=== PATIENT | male | born 1935 | race Caucasian/White ===

== ENCOUNTER 2018-06-06 16:26 | Inpatient (IN) | payer MEDICAID, MEDICARE ==
--- NOTE | 2018-06-06 16:35 | ED ---
Complex/Multi-Sys Presentation - HPI Summary HPI Summary: This pt is an 83 y/o male presenting to [facility] via EMS for diarrhea, abd pain and SOB. Pt reports he had a lot of diarrhea yesterday. Pt denies any nausea and vomiting. Per EMS pt is very dehydrated. EMS reports blood pressure of 96 systolic. Per nurse's note, pt has sick contacts at home with stomach bug. Pt presents to the ED with low grade fever of 100.3F. - History Of Current Complaint Time Seen by Provider: 06/06/18 16:29 Hx Obtained From: Patient, EMS Onset/Duration: Lasting Days, Still Present Timing: Days Severity Currently: Moderate Location: Pain At: - abd Aggravating Factor(s): nothing Alleviating Factor(s): nothing Associated Signs And Symptoms: Positive: SOB, Diarrhea, Abdominal Pain, Fever - low grade. Negative: Nausea, Vomiting - Allergies/Home Medications Allergies/Adverse Reactions: Allergies Allergy/AdvReac Type Severity Reaction Status Date / Time aspirin Allergy Swelling Verified 06/06/18 18:45 Of Face,Lips,& Throat ibuprofen Allergy Unknown Verified 06/06/18 18:45 Reaction Details Home Medications: Home Medications Dicyclomine CAP* [Bentyl CAP*] 10 mg PO QID PRN 06/06/18 [History Confirmed ] Multivitamins/Minerals TAB* [Theragran/minerals TAB*] 1 tab PO DAILY 06/06/18 [ History Confirmed 06/06/18] carBAMazepine TAB(*) [TEGretol TAB(*)] 200 mg PO TID 06/06/18 [History Confirmed 06/06/18] PMH/Surg Hx/FS Hx/Imm Hx Endocrine/Hematology History: Denies: Hx Diabetes Cardiovascular History: Denies: Hx Hypertension Respiratory History: Reports: Hx Asthma, Other Respiratory Problems/Disorders - HX OF SEIZURES History: Denies: Hx Dialysis, Hx Renal Disease Sensory History: Reports: Hx Hearing Problem - WEARS HEARING AIDS Infectious Disease History: Denies: Traveled Outside the [place] in Last 30 Days - Family History Known Family History: Positive: Other - Patient does not recall his FHx - Social History Alcohol Use: None Substance Use Type: Reports: None Smoking Status (MU): Never Smoked Tobacco Review of Systems Constitutional: Other - POS: dehydration Negative: Fever Positive: Shortness Of Breath Positive: Abdominal Pain, Diarrhea All Other Systems Reviewed And Are Negative: Yes Physical Exam - Summary Physical Exam Summary: Appearance: Elderly man who appears ill and is tachypneic in mild distress Skin: Warm, dry, no obvious rash Eyes: sclera anicteric, no conjunctival pallor ENT: mucous membranes moist, pharynx appears normal Neck: Supple, nontender Respiratory: Clear to auscultation, no signs of respiratory distress Cardiovascular: Normal S1, S2. No murmurs. Normal distal pulses in tibial and radial bilaterally. Abdomen: Soft, generalized tenderness with guarding and rebound, normal active bowel sounds present Musculoskeletal: Peripheral cyanosis in fingers. Neurological: A&Ox3, awake and alert, mentation is normal, speech is fluent and appropriate Psychiatric: affect is normal, does not appear anxious or depressed Triage Information Reviewed: Yes Vital Signs On Initial Exam: Initial Vitals Temp Pulse Resp BP Pulse Ox 100.3 F 113 32 139/95 89 06/06/18 16:31 06/06/18 16:31 06/06/18 16:31 06/06/18 16:31 06/06/18 16:31 Vital Signs Reviewed: Yes Diagnostics - Laboratory Result Diagrams: 06/07/18 05:07 06/07/18 05:07 Lab Statement: Any lab studies that have been ordered have been reviewed, and results considered in the medical decision making process. - Radiology Chest XR Radiology Interpretation Completed By: Radiologist Summary of Radiographic Findings: IMPRESION: Low lung volumes with subsegmental atelectasis. Dr. Bonilla has reviewed this report. - CT Abdomen/Pelvis CT CT Interpretation Completed By: Radiologist Summary of CT Findings: IMPRESSION: 1. Mild partial small bowel obstruction with transition in the right low quadrant. No perforation or ischemia. 2. Interval T12 and multiple rib fractures. Dr. Bonilla has reviewed this report. - EKG 16:32 Cardiac Rate: Tachycardia - at 109 bpm EKG Rhythm: Sinus Tachycardia Summary of EKG Findings: Right bundle branch block. Inferior infarct, age indeterminate. Re-Evaluation - Re-Evaluation First Eval Re-Evaluation Time: 20:41 Change: Unchanged Comment: Pt is still tachypneic in mild distress. Pt is now wheezing in lungs diffusely. Complex Multi-Symp Course/Dx Assessment/Plan: Pt is an 83 y/o male who presents via EMS for diarrhea, abd pain and SOB. Pt reports he had a lot of diarrhea yesterday. Pt denies any nausea and vomiting. Per EMS pt is very dehydrated. Labs are remarkable for BUN of 40, creatinine of 2.27, lactic acid of 2.3, alkaline phosphatase of 160, CRP of 86. VBG pH of 7.22, HCO3 of 16.8, O2 saturation of 22.8, base excess - 7.8. Chest XR shows low lung volumes with subsegmental atelectasis. Abdomen/ Pelvis CT reveals 1. Mild partial small bowel obstruction with transition in the right low quadrant. No perforation or ischemia. 2. Interval T12 and multiple rib fractures. Discussed case with Dr. Vigil, hospitalist, who accepted the pt for admission. - Diagnoses Provider Diagnoses: Partial small bowel obstruction, COPD exacerbation, Hypernatremia, Acute renal failure - Physician Notifications Discussed Care Of Patient With: Jaleesa Vigil - hospitalist Time Discussed With Above Provider: 20:42 Instructed by Provider To: Admit As Inpatient - Critical Care Time Critical Care Time: 30-74 min Discharge - Sign-Out/Discharge Documenting (check all that apply): Patient Departure - Admit to [facility] [place] Patient Received Moderate/Deep Sedation with Procedure: No - Discharge Plan Condition: Stable Disposition: ADMITTED TO [facility] - Billing Disposition and Condition Condition: STABLE Disposition: Admitted to [facility] - Attestation Statements Document Initiated by Braden: Yes Documenting Scribe: Roberta Mccray Provider For Whom Braden is Documenting (Include Credential): Les Bonilla MD Scribcristino Attestation: Roberta Solomon, scribed for Les Bonilla MD on 06/07/18 at 1258. Scribe Documentation Reviewed: Yes Provider Attestation: The documentation as recorded by the Roberta corona accurately reflects the service I personally performed and the decisions made by me, Les Bonilla MD Status of Scribe Document: Viewed
[2018-06-06] MEDS: NS 0.9% 1000 ML** 2,000 ML IV ONE ×2 (17:01→18:33)
[2018-06-06 17:20] LABS: ABS Basophils 0 10^3/ul (0-0.2); ABS Eosinophils 0 10^3/ul (0-0.6); ABS Lymphocytes 0.4 10^3/ul (1.0-4.8); ABS Monocytes 0.6 10^3/ul (0-0.8); ABS Neutrophils 8.4 10^3/ul (1.5-7.7); ABS Nucleated RBC 0 10^3/ul; Eosinophil % 0 %; Hematocrit 53 % (42-52); Hemoglobin 17.2 g/dl (14.0-18.0); Lymphocyte % 4.2 %; Mean Corpuscular HGB Conc 32 g/dl (31-36); Mean Corpuscular Hemoglobin 31 pg (27-31); Mean Corpuscular Volume 96 fL (80-94); Mean Platelet Volume 7.1 fL (7.4-10.4); Nucleated Red Blood Cells % 0.1; Platelet Count 272 10^3/ul (150-450); Red Blood Count 5.55 10^6/ul (4.00-5.40); Red Cell Distribution Width 15 % (10.5-15); White Blood Count 9.4 10^3/ul (3.5-10.8)
[2018-06-06 17:38] LABS: ALT 20 U/L (7-52); AST 24 U/L (13-39); Albumin 4.2 g/dL (3.2-5.2); Albumin/Globulin Ratio 1.1 (1-3); Alkaline Phosphatase 160 U/L (34-104); Anion Gap 12 mmol/L (2-11); BUN/Creatinine Ratio 17.6 (8-20); Blood Urea Nitrogen 40 mg/dL (6-24); C Reactive Protein 86.14 mg/L (<8.01); CO2 Carbon Dioxide 17 mmol/L (22-32); Calcium 9.5 mg/dL (8.6-10.3); Chloride 120 mmol/L (101-111); EGFR African American 33.4 (>60); EGFR Non-African American 27.6 (>60); Globulin 3.8 g/dL (2-4); Glucose 118 mg/dL (70-100); Potassium 5.4 mmol/L (3.5-5.0); Sodium 149 mmol/L (135-145)
[2018-06-06 17:39] LABS: Troponin I 0.01 ng/mL (<0.04)
[2018-06-06] MEDS ORDERED: methylPREDNISolone 125 MG* 2 ML VIAL IV ONE (20:40)
[2018-06-06] MEDS ORDERED: Albuterol 0.5% CONC NEB.SOL* 5 MG/ML 20 ml BOT INH ONE (20:41)
[2018-06-06] MEDS ORDERED: ED Piperacillin/Tazobac 3.375 3.375 GM/100 ML PREMIX.SET IVPB ONE (20:42)
[2018-06-06] MEDS ORDERED: ZOSYN 3.375 GM x ONE DOSE over 30 miuntes IVPB ×2 (21:00)
[2018-06-06] MEDS ORDERED: Ondansetron INJ* 2 MG/ML VIAL IV PRN (21:15)
[2018-06-06] MEDS: Heparin VIAL(*) 5000 UNITS/ML VIAL (FIVE THOUSAND) SUBCUT SCH (22:58)
[2018-06-06] MEDS: NS 0.9% 1000 ML** 1,000 ML IV SCH (22:59)
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
[2018-06-07] MEDS: Heparin VIAL(*) 5000 UNITS/ML VIAL (FIVE THOUSAND) SUBCUT SCH ×3 (05:34→21:52)
[2018-06-07 06:17] LABS: Hematocrit 38 % (42-52); Hemoglobin 12.6 g/dl (14.0-18.0); Mean Corpuscular HGB Conc 33 g/dl (31-36); Mean Corpuscular Hemoglobin 31 pg (27-31); Mean Corpuscular Volume 93 fL (80-94); Mean Platelet Volume 7.2 fL (7.4-10.4); Platelet Count 192 10^3/ul (150-450); Red Blood Count 4.13 10^6/ul (4.00-5.40); Red Cell Distribution Width 14 % (10.5-15); White Blood Count 6.9 10^3/ul (3.5-10.8)
[2018-06-07 06:27] LABS: Calcium 7.7 mg/dL (8.6-10.3); EGFR African American 82.3 (>60); Potassium 3.6 mmol/L (3.5-5.0)
[2018-06-07 06:34] LABS: Carbamazepine 5.8 mcg/mL (4.0-12.0)
[2018-06-07] MEDS: Atenolol TAB* 50 MG PO SCH (09:08)
[2018-06-07] MEDS: Multivitamins/Minerals TAB PO SCH (09:08)
[2018-06-07] MEDS: carBAMazepine TAB(*) 200 MG PO SCH ×3 (09:08→21:52)
[2018-06-07] MEDS: Tamsulosin CAP* 0.4 MG PO SCH (09:09)
[2018-06-07] MEDS: NS 0.9% 1000 ML** 1,000 ML IV SCH (09:09)
[2018-06-07] MEDS ORDERED: Albuterol 2.5 MG/3 ML NEB.SOL* (0.083%) INH PRN (10:31)
[2018-06-07 10:49] LABS: C Reactive Protein 82.74 mg/L (<8.01)
--- NOTE | 2018-06-07 12:30 | PN ---
Subjective Date of Service: 06/07/18 Interval History: Mr. Muniz, "Channing," has had 4 episodes of diarrhea this morning, described as thin, liquid, yellow stool. He has no complaints. He is hungry. He has no abdominal pain, has had no emesis, no shortness of breath or cough. He has been noted to be tachypneic this morning with no complaints. There is a recording of 76% O2 overnight and he is now on 4L O2. 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 Objective Active Medications: Albuterol (Ventolin 2.5 Mg/3 Ml Neb.Ann*) 2.5 mg INH Q4H PRN PRN Reason: SOB/WHEEZING Atenolol (Tenormin Tab*) 50 mg PO DAILY [facility] Last Admin: 06/07/18 09:08 Dose: 50 mg Carbamazepine (Tegretol Tab(*)) 200 mg PO TID [facility] Last Admin: 06/07/18 09:08 Dose: 200 mg Dicyclomine HCl (Bentyl Cap*) 10 mg PO QID PRN PRN Reason: PAIN - ABDOMINAL Heparin Sodium (Porcine) (Heparin Vial(*)) 5,000 units SUBCUT Q8HR [facility] Last Admin: 06/07/18 05:34 Dose: 5,000 units Sodium Chloride (Ns 0.9% 1000 Ml) 1,000 mls @ 125 mls/hr IV PER RATE [facility] Last Admin: 06/07/18 09:09 Dose: 125 mls/hr Multivitamins/Minerals (Theragran/Minerals Tab*) 1 tab PO DAILY [facility] Last Admin: 06/07/18 09:08 Dose: 1 tab Ondansetron HCl (Zofran Inj*) 4 mg IV Q6H PRN PRN Reason: NAUSEA Tamsulosin HCl (Flomax Cap*) 0.4 mg PO DAILY [facility] Last Admin: 06/07/18 09:09 Dose: 0.4 mg Vital Signs - 8 hr 06/07/18 06/07/18 06/07/18 08:22 09:36 11:23 Temperature 97.6 F 97.2 F Pulse Rate 66 64 Respiratory 34 24 16 Rate Blood Pressure 106/56 114/73 (mmHg) O2 Sat by Pulse 100 100 Oximetry Oxygen Devices in Use Now: Nasal Cannula Appearance: alert, tachypneic, no distress, oriented to person place and situation but repeats himself often Eyes: No Scleral Icterus Ears/Nose/Mouth/Throat: NL Teeth, Lips, Gums Neck: NL Appearance and Movements; NL JVP Respiratory: Symmetrical Chest Expansion and Respiratory Effort, Clear to Auscultation, - - able to speak in full sentences, no accessory respiratory muscles Cardiovascular: NL Sounds; No Murmurs; No JVD, RRR Abdominal: - - mildly distended, nontender, bowel sounds are hypoactive but present in all quadrants Lymphatic: No Cervical Adenopathy Extremities: No Edema Skin: No Rash or Ulcers Neurological: NL Muscle Strength and Tone Result Diagrams: 06/07/18 05:07 06/07/18 05:07 Microbiology and Other Data: Microbiology 06/07/18 11:00 Stool Gross Appearance - Final Stool C. difficile DNA Amplification - Final 027 Presumptive NEGATIVE Toxigenic C.diff NEGATIVE Assess/Plan/Problems-Billing Assessment: This is a 83 year old man with history of HTN, seizure disorder, BPH who presented to the ED yesterday with diarrhea and was found to have hypernatremia , ANIBAL, and a possible partial small bowel obstruction - Patient Problems (1) Diarrhea Current Visit: Yes Status: Acute Code(s): R19.7 - DIARRHEA, UNSPECIFIED SNOMED Code(s): 78255209 Comment: c. diff is negative, stool culture is pending suspect viral enteritis, continue supportive care, he is improving with ivf resuscitation and his lytes are normal this morning (2) Partial small bowel obstruction Current Visit: Yes Status: Acute Code(s): K56.600 - PARTIAL INTESTINAL OBSTRUCTION, UNSPECIFIED TO CAUSE SNOMED Code(s): 100073071 Comment: I agree that he is not behaving as an SBO, with no pain, no vomiting , and no risk factors for an SBO As such, I am advancing his diet; he is hungry, and will see how he tolerates this (3) HTN (hypertension) Current Visit: Yes Status: Acute Code(s): I10 - ESSENTIAL (PRIMARY) HYPERTENSION SNOMED Code(s): 05404739 Comment: normotensive on atenolol (4) ANIBAL (acute kidney injury) Current Visit: Yes Status: Acute Code(s): N17.9 - ACUTE KIDNEY FAILURE, UNSPECIFIED SNOMED Code(s): 46251606 Comment: resolved after ivf overnight, will continue (5) Acidosis Current Visit: Yes Status: Acute Code(s): E87.2 - ACIDOSIS SNOMED Code(s) : 83415697 Comment: non-anion gap metabolic acidosis likely related to diarrhea
--- NOTE | 2018-06-07 12:44 | PN ---
Hospitalist Progress Note Date of Service: 06/07/18 I talked with Samuel's niece, Liz, who lives next door to him. She thinks he is improving. Regarding his disposition, I recommended that he stay one more night to continue IV hydration, diet advancement, and ambulation. She is in agreement. She also reports that due to his IBS, he always moves his bowels about 4 times per day. She does not have any concerns about his mobility, he is independent at home and also has a nurse who lives with him but works for [employer] so is not always there. He gets meals on wheels.
[2018-06-07] MEDS: Dicyclomine CAP* 10 MG PO PRN (16:15)
[2018-06-08] MEDS: NS 0.9% 1000 ML** 1,000 ML IV SCH (00:25)
[2018-06-08] MEDS: Heparin VIAL(*) 5000 UNITS/ML VIAL (FIVE THOUSAND) SUBCUT SCH ×3 (05:58→20:50)
[2018-06-08 07:20] LABS: ABS Basophils 0 10^3/ul (0-0.2); ABS Eosinophils 0.1 10^3/ul (0-0.6); ABS Lymphocytes 1.1 10^3/ul (1.0-4.8); ABS Monocytes 0.5 10^3/ul (0-0.8); ABS Neutrophils 3.7 10^3/ul (1.5-7.7); ABS Nucleated RBC 0 10^3/ul; Eosinophil % 2.3 %; Hematocrit 37 % (42-52); Hemoglobin 12.4 g/dl (14.0-18.0); Lymphocyte % 21.1 %; Mean Corpuscular HGB Conc 34 g/dl (31-36); Mean Corpuscular Hemoglobin 31 pg (27-31); Mean Corpuscular Volume 92 fL (80-94); Mean Platelet Volume 7.1 fL (7.4-10.4); Nucleated Red Blood Cells % 0.1; Platelet Count 160 10^3/ul (150-450); Red Blood Count 4.02 10^6/ul (4.00-5.40); Red Cell Distribution Width 14 % (10.5-15); White Blood Count 5.4 10^3/ul (3.5-10.8)
[2018-06-08 07:36] LABS: BUN/Creatinine Ratio 25.4 (8-20); C Reactive Protein 29.04 mg/L (<8.01); Calcium 7.3 mg/dL (8.6-10.3); EGFR African American 136.7 (>60); Potassium 3.3 mmol/L (3.5-5.0)
[2018-06-08] MEDS: carBAMazepine TAB(*) 200 MG PO SCH ×3 (10:22→20:50)
[2018-06-08] MEDS: Tamsulosin CAP* 0.4 MG PO SCH (10:22)
[2018-06-08] MEDS: Multivitamins/Minerals TAB PO SCH (10:22)
[2018-06-08] MEDS: Atenolol TAB* 50 MG PO SCH (10:22)
--- NOTE | 2018-06-08 11:58 | PN ---
Subjective Date of Service: 06/08/18 Interval History: Pt seen and examined. Meds and labs reviewed. CC: N/A; Denies diarrhea, however, pt poor historian given previus hx of TBI ROS: Denied YUEN/dizziness, F/C, N/V, CP, SOB, increased cough, sputum production , abd pain, diarrhea, constipation, dysuria, myalgias, arthralgias, throat pain , and new skin lesions. The rest of the 14 point ROS are unremarkable. PHYSICAL EXAM: GEN APPEARANCE: Awake, not in acute distress, answers questions appropriately, not oriented x 3 HEENT: NC/AT, PERRLA, moist oral mucosa, (-) throat erythema NECK: Soft, supple, (-) cervical LAD, (-)JVD HEART: S1S2 WNL, RRR, No MRG CHEST: CTA, BL, GAE, No W/R/R ABD: Soft, ND/NT, NABS 4x Q EXT: No C/C/E SKIN: Warm to touch PSYCH: No active psychosis, hallucinations, depression, SI/HI Objective Active Medications: Albuterol (Ventolin 2.5 Mg/3 Ml Neb.Ann*) 2.5 mg INH Q4H PRN PRN Reason: SOB/WHEEZING Atenolol (Tenormin Tab*) 50 mg PO DAILY [facility] Last Admin: 06/08/18 10:22 Dose: 50 mg Carbamazepine (Tegretol Tab(*)) 200 mg PO TID [facility] Last Admin: 06/08/18 10:22 Dose: 200 mg Dicyclomine HCl (Bentyl Cap*) 10 mg PO QID PRN PRN Reason: PAIN - ABDOMINAL Last Admin: 06/07/18 16:15 Dose: 10 mg Heparin Sodium (Porcine) (Heparin Vial(*)) 5,000 units SUBCUT Q12H [facility] Last Admin: 06/08/18 10:22 Dose: 5,000 units Sodium Chloride (Ns 0.9% 1000 Ml) 1,000 mls @ 125 mls/hr IV PER RATE [facility] Last Admin: 06/08/18 00:25 Dose: 125 mls/hr Multivitamins/Minerals (Theragran/Minerals Tab*) 1 tab PO DAILY [facility] Last Admin: 06/08/18 10:22 Dose: 1 tab Ondansetron HCl (Zofran Inj*) 4 mg IV Q6H PRN PRN Reason: NAUSEA Tamsulosin HCl (Flomax Cap*) 0.4 mg PO DAILY [facility] Last Admin: 06/08/18 10:22 Dose: 0.4 mg Vital Signs - 8 hr 06/08/18 06/08/18 06/08/18 04:12 06:03 11:16 Temperature 97.9 F 98.1 F 97.0 F Pulse Rate 92 74 76 Respiratory 18 28 16 Rate Blood Pressure 119/91 134/78 147/90 (mmHg) O2 Sat by Pulse 99 98 100 Oximetry Oxygen Devices in Use Now: Nasal Cannula Result Diagrams: 06/08/18 07:03 06/08/18 07:03 Microbiology and Other Data: Microbiology 06/07/18 11:00 Stool Gross Appearance - Final Stool C. difficile DNA Amplification - Final 027 Presumptive NEGATIVE Toxigenic C.diff NEGATIVE Assess/Plan/Problems-Billing Assessment: This is a 83 year old man with history of HTN, seizure disorder, BPH who presented to the ED yesterday with diarrhea and was found to have hypernatremia , ANIBAL, and a possible partial small bowel obstruction - Patient Problems (1) Diarrhea Current Visit: Yes Status: Acute Code(s): R19.7 - DIARRHEA, UNSPECIFIED SNOMED Code(s): 17812496 Comment: - C. diff and rotavirus tests (-) -Blood Cx: (-)x1 day - Continue to follow stool cultures suspect viral enteritis, continue supportive care, he is improving with ivf resuscitation and his lytes are normal this morning (2) Hypernatremia Current Visit: Yes Status: Acute Code(s): E87.0 - HYPEROSMOLALITY AND HYPERNATREMIA SNOMED Code(s): 86557454 Comment: #Hypovolemic hypernatremia: -Resolved -Continue IVFs (3) Partial small bowel obstruction Current Visit: Yes Status: Acute Code(s): K56.600 - PARTIAL INTESTINAL OBSTRUCTION, UNSPECIFIED TO CAUSE SNOMED Code(s): 824544623 Comment: -No change in quality of pSBO on AXR, however, pt appears to have tolerated full liquid diet and per family yesterday appears to be near his baseline -Will advance diet to low residue -Continue watchful waiting (4) HTN (hypertension) Current Visit: Yes Status: Acute Code(s): I10 - ESSENTIAL (PRIMARY) HYPERTENSION SNOMED Code(s): 39105328 Comment: -Will continue to observe for now since DHN just recently resolved -Continue Atenolol; pt also on Tamsulosin for BPH (5) ANIBAL (acute kidney injury) Current Visit: Yes Status: Acute Code(s): N17.9 - ACUTE KIDNEY FAILURE, UNSPECIFIED SNOMED Code(s): 84672931 Comment: -Resolved -Likely due to diarrhea (6) Acidosis, metabolic Current Visit: Yes Status: Acute Code(s): E87.2 - ACIDOSIS SNOMED Code(s) : 25328034 Comment: #NAGMA: -Improving as diarrhea improves (7) DVT prophylaxis Current Visit: Yes Status: Acute Code(s): BPX9175 - SNOMED Code(s): 649485369 Comment: -Will change Heparin SQ to q12H given advanced age Status and Disposition: -For PT eval -Possible D/C in 1-2 days
[2018-06-08] MEDS: Dicyclomine CAP* 10 MG PO PRN (20:49)
[2018-06-09] MEDS ORDERED: Potassium Chlor TAB* 20 MEQ TAB.ER PO STA (07:14)
[2018-06-09] MEDS: Heparin VIAL(*) 5000 UNITS/ML VIAL (FIVE THOUSAND) SUBCUT SCH ×2 (07:56→22:04)
[2018-06-09] MEDS: carBAMazepine TAB(*) 200 MG PO SCH ×3 (07:57→22:03)
[2018-06-09] MEDS: Tamsulosin CAP* 0.4 MG PO SCH (07:57)
[2018-06-09] MEDS: Multivitamins/Minerals TAB PO SCH (07:57)
[2018-06-09] MEDS: Atenolol TAB* 50 MG PO SCH (07:57)
[2018-06-09] MEDS ORDERED: Calcium Gluconate INJ* 2 GM in NS 0.9% 100 ML* 100 ML IV ONE (08:00)
[2018-06-09] MEDS ORDERED: Lactated Ringers 1000 ML Bag* 1,000 ML IV SCH ×2 (08:00→14:00)
[2018-06-09] MEDS ORDERED: Albuterol 2.5 MG/3 ML NEB.SOL* (0.083%) INH PRN (11:13)
[2018-06-09 11:44] LABS: Hematocrit 39 % (42-52); Mean Corpuscular HGB Conc 34 g/dl (31-36); Mean Corpuscular Hemoglobin 31 pg (27-31); Mean Corpuscular Volume 93 fL (80-94); Red Blood Count 4.18 10^6/ul (4.00-5.40); Red Cell Distribution Width 14 % (10.5-15); White Blood Count 5.2 10^3/ul (3.5-10.8)
[2018-06-09 11:47] LABS: Albumin 2.6 g/dL (3.2-5.2); BUN/Creatinine Ratio 15.2 (8-20); Calcium 8.1 mg/dL (8.6-10.3); EGFR African American 139.1 (>60); Globulin 2.5 g/dL (2-4); Magnesium 1.7 mg/dL (1.9-2.7); Phosphorus 1.8 mg/dL (2.5-5.0); Potassium 3.4 mmol/L (3.5-5.0); Total Bilirubin 0.3 mg/dL (0.2-1.0); Total Protein 5.1 g/dL (6.4-8.9)
[2018-06-09 12:12] LABS: Platelet Count Platelets clumped. 10^3/ul (150-450)
[2018-06-09] MEDS: Albuterol/Ipratropium NEB.SOL* Albuterol 2.5 MG/Ipratropium 0.5 MG 3 ML INH SCH ×2 (12:50→19:30)
--- NOTE | 2018-06-09 13:28 | PN ---
Subjective Date of Service: 06/09/18 Interval History: Pt seen and examined. Meds and labs reviewed. CC: diarrhea/LBM x1 this AM. Intermittent tachypnea/tachycardia. ROS: Denied YUEN/dizziness, F/C, N/V, CP, SOB, increased cough, sputum production , abd pain, diarrhea, constipation, dysuria, myalgias, arthralgias, throat pain , and new skin lesions. The rest of the 14 point ROS are unremarkable. PHYSICAL EXAM: GEN APPEARANCE: Awake, not in acute distress, answers questions appropriately, not oriented x 3 HEENT: NC/AT, PERRLA, moist oral mucosa, (-) throat erythema NECK: Soft, supple, (-) cervical LAD, (-)JVD HEART: S1S2 WNL, RRR, No MRG CHEST: CTA, BL, GAE, No W/R/R ABD: Soft, ND/NT, NABS 4x Q EXT: No C/C/RLE 1-2+ edema> LLE SKIN: Warm to touch PSYCH: No active psychosis, hallucinations, depression, SI/HI Objective Active Medications: Albuterol (Ventolin 2.5 Mg/3 Ml Neb.Ann*) 2.5 mg INH Q2H PRN PRN Reason: SOB/WHEEZING Albuterol/Ipratropium (Duoneb (Albuterol 2.5 Mg/Ipratropium 0.5 Mg)) 1 neb INH [id number] AWAKE [facility] Last Admin: 06/09/18 12:50 Dose: 1 neb Atenolol (Tenormin Tab*) 50 mg PO DAILY [facility] Last Admin: 06/09/18 07:57 Dose: 50 mg Carbamazepine (Tegretol Tab(*)) 200 mg PO TID [facility] Last Admin: 06/09/18 07:57 Dose: 200 mg Dicyclomine HCl (Bentyl Cap*) 10 mg PO QID PRN PRN Reason: PAIN - ABDOMINAL Last Admin: 06/08/18 20:49 Dose: 10 mg Furosemide (Lasix Iv*) 40 mg IV DAILY [facility] Stop: 06/11/18 13:59 Heparin Sodium (Porcine) (Heparin Vial(*)) 5,000 units SUBCUT Q12H [facility] Last Admin: 06/09/18 07:56 Dose: 5,000 units Metolazone (Zaroxolyn Tab*) 5 mg PO DAILY@0830 [facility] Stop: 06/12/18 08:29 Multivitamins/Minerals (Theragran/Minerals Tab*) 1 tab PO DAILY [facility] Last Admin: 06/09/18 07:57 Dose: 1 tab Ondansetron HCl (Zofran Inj*) 4 mg IV Q6H PRN PRN Reason: NAUSEA Tamsulosin HCl (Flomax Cap*) 0.4 mg PO DAILY [facility] Last Admin: 06/09/18 07:57 Dose: 0.4 mg Vital Signs - 8 hr 06/09/18 06/09/18 07:46 12:53 Temperature 97.4 F Pulse Rate 102 85 Respiratory 40 25 Rate Blood Pressure 144/86 (mmHg) O2 Sat by Pulse 97 94 Oximetry Oxygen Devices in Use Now: Nasal Cannula Result Diagrams: 06/09/18 11:23 06/09/18 11:23 Microbiology and Other Data: Microbiology 06/07/18 11:00 Stool Gross Appearance - Final Stool C. difficile DNA Amplification - Final 027 Presumptive NEGATIVE Toxigenic C.diff NEGATIVE Assess/Plan/Problems-Billing Assessment: This is a 83 year old man with history of HTN, seizure disorder, BPH who presented to the ED yesterday with diarrhea and was found to have hypernatremia , ANIBAL, and a possible partial small bowel obstruction - Patient Problems (1) Pulmonary edema Current Visit: Yes Status: Acute Code(s): J81.1 - CHRONIC PULMONARY EDEMA SNOMED Code(s): 22151984 Comment: -Likely Iatrogenic given aggressive hydration due to hypovolemic hyponatremia with DHN on presentation -Likely cause of intermittent tachycardia/tachypnea -D/Cd IVF -CXR: Pulmonary edema -Place on Lasix and Metolazone daily x 2 days (2) Diarrhea Current Visit: Yes Status: Acute Code(s): R19.7 - DIARRHEA, UNSPECIFIED SNOMED Code(s): 56215120 Comment: - C. diff and rotavirus tests (-) -Shiga toxin 1&2: (-) -Blood Cx: (-)x2 days - Continue to follow stool cultures -Suspect viral enteritis, continue supportive care, he is improving with ivf resuscitation and his lytes are normal this morning (3) Hypernatremia Current Visit: Yes Status: Acute Code(s): E87.0 - HYPEROSMOLALITY AND HYPERNATREMIA SNOMED Code(s): 84507523 Comment: #Hypovolemic hypernatremia: -Resolved -Continue IVFs (4) Partial small bowel obstruction Current Visit: Yes Status: Acute Code(s): K56.600 - PARTIAL INTESTINAL OBSTRUCTION, UNSPECIFIED TO CAUSE SNOMED Code(s): 904833716 Comment: -No change in quality of pSBO on AXR, however, pt appears to tolerate low residue diet -Will advance diet to low residue -Continue watchful waiting (5) HTN (hypertension) Current Visit: Yes Status: Acute Code(s): I10 - ESSENTIAL (PRIMARY) HYPERTENSION SNOMED Code(s): 10933456 Comment: -Continue Atenolol; pt also on Tamsulosin for BPH (6) ANIBAL (acute kidney injury) Current Visit: Yes Status: Acute Code(s): N17.9 - ACUTE KIDNEY FAILURE, UNSPECIFIED SNOMED Code(s): 87404874 Comment: -Resolved -Likely due to diarrhea (7) Acidosis, metabolic Current Visit: Yes Status: Acute Code(s): E87.2 - ACIDOSIS SNOMED Code(s) : 78475904 Comment: #NAGMA: -Improving as diarrhea improves -Some of it is also likely due to aggressive fluid hydration with bicarb free fluid (8) DVT prophylaxis Current Visit: Yes Status: Acute Code(s): AYZ2244 - SNOMED Code(s): 148199985 Comment: -Will change Heparin SQ to q12H given advanced age Status and Disposition: -Appreciate PT input; no needs identified at this time; Continue PT F/U -Corrected mild hypocacemia; re-check levels in AM -Possible D/C in 1-2 days
[2018-06-09] MEDS: Furosemide IV* 10 MG/ML VIAL (40 MG) IV SCH (15:11)
[2018-06-10] MEDS: Metolazone TAB* 5 MG PO SCH (07:21)
[2018-06-10] MEDS: Heparin VIAL(*) 5000 UNITS/ML VIAL (FIVE THOUSAND) SUBCUT SCH ×2 (07:21→20:55)
[2018-06-10 07:24] LABS: Hematocrit 37 % (42-52); Hemoglobin 12.6 g/dl (14.0-18.0); Mean Corpuscular HGB Conc 34 g/dl (31-36); Mean Corpuscular Hemoglobin 31 pg (27-31); Mean Corpuscular Volume 91 fL (80-94); Mean Platelet Volume 7.2 fL (7.4-10.4); Platelet Count 165 10^3/ul (150-450); Red Blood Count 4.04 10^6/ul (4.00-5.40); Red Cell Distribution Width 14 % (10.5-15); White Blood Count 5.7 10^3/ul (3.5-10.8)
[2018-06-10 07:42] LABS: Albumin 2.7 g/dL (3.2-5.2); BUN/Creatinine Ratio 19.7 (8-20); Calcium 7.8 mg/dL (8.6-10.3); EGFR African American 152.4 (>60); EGFR Non-African American 125.9 (>60); Globulin 2.6 g/dL (2-4); Magnesium 1.5 mg/dL (1.9-2.7); Phosphorus 1.9 mg/dL (2.5-5.0); Potassium 2.9 mmol/L (3.5-5.0); Total Bilirubin 0.5 mg/dL (0.2-1.0); Total Protein 5.3 g/dL (6.4-8.9)
[2018-06-10] MEDS ORDERED: Potassium Chlor TAB* 20 MEQ TAB.ER PO STA (08:08)
[2018-06-10] MEDS ORDERED: Calcium Gluconate INJ* 1 GM in NS 0.9% 50 ML* 50 ML IVPB ONE (08:30)
[2018-06-10] MEDS ORDERED: Magnesium Sulf 4 GM/100 ML IV* 4,000 MG/100 ML BAG IVPB ONE (08:30)
[2018-06-10] MEDS: Furosemide IV* 10 MG/ML VIAL (40 MG) IV SCH (08:30)
[2018-06-10] MEDS ORDERED: Potassium Phosphate IV* 15 MMOLE in NS 0.9% 250 ML* 250 ML IVPB ONE (08:30)
[2018-06-10] MEDS: Atenolol TAB* 50 MG PO SCH (10:58)
[2018-06-10] MEDS: Tamsulosin CAP* 0.4 MG PO SCH (10:58)
[2018-06-10] MEDS: carBAMazepine TAB(*) 200 MG PO SCH ×3 (10:58→20:57)
[2018-06-10] MEDS: Multivitamins/Minerals TAB PO SCH (10:58)
--- NOTE | 2018-06-10 14:11 | PN ---
Subjective Date of Service: 06/10/18 Interval History: Pt seen and examined. Meds and labs reviewed. CC: Had two loose bowel movements this AM. Described by Ramana (RN) as anila- like texture, brown, and large volume. ROS: Denied YUEN/dizziness, F/C, N/V, CP, SOB, increased cough, sputum production , abd pain, constipation, dysuria, myalgias, arthralgias, throat pain, and new skin lesions. The rest of the 14 point ROS are unremarkable. PHYSICAL EXAM: GEN APPEARANCE: Awake, not in acute distress, answers questions appropriately, not oriented x 3 HEENT: NC/AT, PERRLA, moist oral mucosa, (-) throat erythema NECK: Soft, supple, (-) cervical LAD, (-)JVD HEART: S1S2 WNL, RRR, No MRG CHEST: CTA, BL, GAE, No W/R/R ABD: Soft, ND/NT, NABS 4x Q EXT: No C/C/RLE 1-2+ edema> LLE SKIN: Warm to touch PSYCH: No active psychosis, hallucinations, depression, SI/H Objective Active Medications: Albuterol (Ventolin 2.5 Mg/3 Ml Neb.Ann*) 2.5 mg INH Q2H PRN PRN Reason: SOB/WHEEZING Atenolol (Tenormin Tab*) 50 mg PO DAILY [facility] Last Admin: 06/10/18 10:58 Dose: 50 mg Carbamazepine (Tegretol Tab(*)) 200 mg PO TID [facility] Last Admin: 06/10/18 10:58 Dose: 200 mg Dicyclomine HCl (Bentyl Cap*) 10 mg PO QID PRN PRN Reason: PAIN - ABDOMINAL Last Admin: 06/08/18 20:49 Dose: 10 mg Furosemide (Lasix Iv*) 40 mg IV DAILY [facility] Stop: 06/11/18 13:59 Last Admin: 06/10/18 08:30 Dose: 40 mg Heparin Sodium (Porcine) (Heparin Vial(*)) 5,000 units SUBCUT Q12H [facility] Last Admin: 06/10/18 07:21 Dose: 5,000 units Potassium Phosphate 15 mmole/ (Sodium Chloride) 255 mls @ 42 mls/hr IVPB ONCE ONE Stop: 06/10/18 14:34 Last Admin: 06/10/18 10:31 Dose: 42 mls/hr Metolazone (Zaroxolyn Tab*) 5 mg PO DAILY@0830 [facility] Stop: 06/12/18 08:29 Last Admin: 06/10/18 07:21 Dose: 5 mg Multivitamins/Minerals (Theragran/Minerals Tab*) 1 tab PO DAILY [facility] Last Admin: 06/10/18 10:58 Dose: 1 tab Ondansetron HCl (Zofran Inj*) 4 mg IV Q6H PRN PRN Reason: NAUSEA Tamsulosin HCl (Flomax Cap*) 0.4 mg PO DAILY [facility] Last Admin: 06/10/18 10:58 Dose: 0.4 mg Oxygen Devices in Use Now: None Result Diagrams: 06/10/18 06:51 06/10/18 06:51 Microbiology and Other Data: Microbiology 06/07/18 11:00 Stool Gross Appearance - Final Stool C. difficile DNA Amplification - Final 027 Presumptive NEGATIVE Toxigenic C.diff NEGATIVE Assess/Plan/Problems-Billing Assessment: This is a 83 year old man with history of HTN, seizure disorder, BPH who presented to the ED yesterday with diarrhea and was found to have hypernatremia , ANIBAL, and a possible partial small bowel obstruction - Patient Problems (1) Pulmonary edema Current Visit: Yes Status: Acute Code(s): J81.1 - CHRONIC PULMONARY EDEMA SNOMED Code(s): 50487465 Comment: -Likely Iatrogenic given aggressive hydration due to hypovolemic hyponatremia with DHN on presentation -Likely cause of intermittent tachycardia/tachypnea -D/Cd IVF -CXR: Pulmonary edema -Place on Lasix and Metolazone daily x 1 more day until re-assesed in AM -BNP and clinical course both improved -For 2D echo in AM (2) Diarrhea Current Visit: Yes Status: Acute Code(s): R19.7 - DIARRHEA, UNSPECIFIED SNOMED Code(s): 12691509 Comment: - C. diff and rotavirus tests (-) -Shiga toxin 1&2: (-) -Blood Cx: (-)x3 days - Continue to follow stool cultures -Suspect viral enteritis vs symptom of pSBO? -Will obtain repeat AXR in AM; if unchanged and especially symptomatic, consider Surgery consult (3) Hypernatremia Current Visit: Yes Status: Acute Code(s): E87.0 - HYPEROSMOLALITY AND HYPERNATREMIA SNOMED Code(s): 66869138 Comment: #Hypovolemic hypernatremia: -Resolved -Continue IVFs (4) Partial small bowel obstruction Current Visit: Yes Status: Acute Code(s): K56.600 - PARTIAL INTESTINAL OBSTRUCTION, UNSPECIFIED TO CAUSE SNOMED Code(s): 725858170 Comment: -Will await repeat AXR in AM -Continue low residue diet -Continue watchful waiting (5) HTN (hypertension) Current Visit: Yes Status: Acute Code(s): I10 - ESSENTIAL (PRIMARY) HYPERTENSION SNOMED Code(s): 97283865 Comment: -Continue Atenolol; pt also on Tamsulosin for BPH (6) ANIBAL (acute kidney injury) Current Visit: Yes Status: Acute Code(s): N17.9 - ACUTE KIDNEY FAILURE, UNSPECIFIED SNOMED Code(s): 64638639 Comment: -Resolved -Likely due to diarrhea (7) Acidosis, metabolic Current Visit: Yes Status: Acute Code(s): E87.2 - ACIDOSIS SNOMED Code(s) : 52972360 Comment: #NAGMA: -Resolved -Some of it was also likely due to aggressive fluid hydration with bicarb free fluid (8) DVT prophylaxis Current Visit: Yes Status: Acute Code(s): SXC3202 - SNOMED Code(s): 250401779 Comment: -Continue Heparin SQ to q12H given advanced age Status and Disposition: -Appreciate PT input; no needs identified at this time; Continue PT F/U -Corrected electrolyte abnormalities; will continue to follow -Pt R/O for DVT on RLE -Possible D/C in 1-2 days
[2018-06-11 06:53] LABS: Hematocrit 42 % (42-52); Hemoglobin 14.4 g/dl (14.0-18.0); Mean Corpuscular HGB Conc 35 g/dl (31-36); Mean Corpuscular Hemoglobin 31 pg (27-31); Mean Corpuscular Volume 91 fL (80-94); Mean Platelet Volume 6.9 fL (7.4-10.4); Platelet Count 199 10^3/ul (150-450); Red Blood Count 4.61 10^6/ul (4.00-5.40); Red Cell Distribution Width 14 % (10.5-15); White Blood Count 8.1 10^3/ul (3.5-10.8)
[2018-06-11 07:09] LABS: BUN/Creatinine Ratio 21.9 (8-20); Calcium 8.8 mg/dL (8.6-10.3); EGFR African American 123.9 (>60); EGFR Non-African American 102.4 (>60); Magnesium 1.8 mg/dL (1.9-2.7); Phosphorus 2.6 mg/dL (2.5-5.0); Potassium 3.4 mmol/L (3.5-5.0)
[2018-06-11] MEDS ORDERED: Magnesium Sulfate 2 GM IV* 2 GM/50 ML BAG IVPB ONE (07:24)
[2018-06-11] MEDS ORDERED: Potassium Chlor TAB* 20 MEQ TAB.ER PO ONE (07:24)
[2018-06-11 07:38] LABS: ABS Basophils 0.1 10^3/ul (0-0.2); ABS Eosinophils 0.2 10^3/ul (0-0.6); ABS Lymphocytes 2.3 10^3/ul (1.0-4.8); ABS Monocytes 0.8 10^3/ul (0-0.8); ABS Neutrophils 4.7 10^3/ul (1.5-7.7); ABS Nucleated RBC 0 10^3/ul; Lymphocyte % 28.3 %; Nucleated Red Blood Cells % 0.3
[2018-06-11] MEDS: Atenolol TAB* 50 MG PO SCH (08:16)
[2018-06-11] MEDS: Heparin VIAL(*) 5000 UNITS/ML VIAL (FIVE THOUSAND) SUBCUT SCH ×2 (08:16→21:55)
[2018-06-11] MEDS: carBAMazepine TAB(*) 200 MG PO SCH ×3 (08:16→20:56)
[2018-06-11] MEDS: Tamsulosin CAP* 0.4 MG PO SCH (08:16)
[2018-06-11] MEDS: Multivitamins/Minerals TAB PO SCH (08:16)
[2018-06-11] MEDS: Furosemide IV* 10 MG/ML VIAL (40 MG) IV SCH (08:16)
[2018-06-11] MEDS: Metolazone TAB* 5 MG PO SCH (08:16)
--- NOTE | 2018-06-11 13:27 | ECHO ---
Patient: ARLINE TOVAR Rec#: [id number] : 1935 Date: 06/11/2018 Age: 83y Height: 157 cm / 61.8 in Weight: 54.1 kg / 119.2 lbs Sex: M BSA: 1.53 Room#: 406 Admit Date#: 06/06/2018 Type: Inpatient Referring: Chano López Reading: Jose Burnett DO Second Language Tutor: Brittany Landaverde RN RDCS CC: Lalit Stanley MD Transthoracic Echocardiogram Indication: CHF BP: 101/63 HR: 70 Rhythm: NSR Findings History: HTN, seizure disorder Technical Comments: The study quality is fair. The study is technically limited due to poor apical windows. The study is technically limited due to patient body habitus. Left Ventricle: The left ventricular chamber size is decreased. Mild concentric left ventricular hypertrophy is observed. There is increased basal septal hypertrophy noted without evidence of an increased gradient across the left ventricular outflow tract. Global left ventricular wall motion and contractility are within normal limits. There is normal left ventricular systolic function. The estimated ejection fraction is greater than 65%. Abnormal left ventricular diastolic function is observed. Left Atrium: The left atrium is mildly dilated. Right Ventricle: The right ventricular chamber size and systolic function are within normal limits. Right Atrium: The right atrium is not well visualized. Aortic Valve: The aortic valve is trileaflet. The aortic valve leaflets are moderately thickened. There is lambl's excrescence There is no evidence of aortic regurgitation. There is no evidence of aortic stenosis. Mitral Valve: Mild mitral annular calcification present. The mitral valve leaflets are moderately thickened. Mild subvalvular thickening of the mitral valve is visualized. There is trace to mild mitral regurgitation. There is no evidence of mitral stenosis. Tricuspid Valve: The tricuspid valve structure is not well visualized. There is trace tricuspid regurgitation. Unable to estimate the right ventricular systolic pressure. Pulmonic Valve: The pulmonic valve appears normal in structure and function. There is mild pulmonic regurgitation. There is no pulmonic stenosis. Pericardium: There is no significant pericardial effusion. Aorta: There is no dilatation of the ascending aorta. The aortic arch is not well visualized. There is no dilation of the aortic root. Pulmonary Artery: The main pulmonary artery is not well visualized. Venous: The inferior vena cava appears normal in size. There is less than 50% respiratory change in the inferior vena cava dimension. Conclusions The left ventricular chamber size is decreased. Mild concentric left ventricular hypertrophy is observed. There is increased basal septal hypertrophy noted without evidence of an increased gradient across the left ventricular outflow tract. Global left ventricular wall motion and contractility are within normal limits. There is normal left ventricular systolic function. The estimated ejection fraction is 65-70% The left atrium is mildly dilated. The right ventricular chamber size and systolic function are within normal limits. No functionally significant valvular abnormalities noted Unable to estimate the right ventricular systolic pressure. No recent studies available for comparison at time of interpretation Measurements Name Value Normal Range RVIDd (AP) 2D 3.2 cm (0.9 - 2.6) RVDdMajor (2D) 2.6 cm (2.2 - 4.4) IVSd (2D) 1.2 cm (0.6 - 1) LVPWd (2D) 1.2 cm (0.6 - 1) LVIDd (2D) 2.7 cm (3.6 - 5.4) LVIDs (2D) 1.8 cm - LV FS (2D) 33 % (25 - 45) Aortic Annulus 1.7 cm (1.4 - 2.6) Ao root diameter (2D) 3 cm (2.1 - 3.5) Ascending Ao 3.2 cm (2.1 - 3.4) LA dimension (AP) 2D 3.2 cm (2.3 - 3.8) LAd ISD 4CH 5.1 cm (2.9 - 5.3) LA ISD 4CH W 2.7 cm (2.5 - 4.5) Name Value Normal Range MV E-wave Vmax 0.46 m/sec - MV deceleration time 458 msec - MV A-wave Vmax 1.1 m/sec - MV E:A ratio 0.4 ratio - LV lateral e' Vmax 0.07 m/sec - LV E:e' lateral ratio 6.6 ratio - Name Value Normal Range AV Vmax 1.1 m/sec - AV VTI 19.7 cm - AV peak gradient 5 mmHg - AV mean gradient 3 mmHg - LVOT Vmax 0.88 m/sec - LVOT VTI 16 cm - LVOT peak gradient 3 mmHg - LVOT mean gradient 2 mmHg - Name Value Normal Range IVC diameter 1.2 cm - Name Value Normal Range PV Vmax 0.61 m/sec -
--- NOTE | 2018-06-11 16:27 | PN ---
Subjective Date of Service: 06/11/18 Interval History: patient watching tv, confused. appears comfortable Objective Active Medications: Albuterol (Ventolin 2.5 Mg/3 Ml Neb.Ann*) 2.5 mg INH Q2H PRN PRN Reason: SOB/WHEEZING Last Admin: 06/10/18 18:03 Dose: 2.5 mg Atenolol (Tenormin Tab*) 50 mg PO DAILY [facility] Last Admin: 06/11/18 08:16 Dose: 50 mg Carbamazepine (Tegretol Tab(*)) 200 mg PO TID [facility] Last Admin: 06/11/18 13:31 Dose: 200 mg Dicyclomine HCl (Bentyl Cap*) 10 mg PO QID PRN PRN Reason: PAIN - ABDOMINAL Last Admin: 06/08/18 20:49 Dose: 10 mg Heparin Sodium (Porcine) (Heparin Vial(*)) 5,000 units SUBCUT Q12H [facility] Last Admin: 06/11/18 08:16 Dose: 5,000 units Metolazone (Zaroxolyn Tab*) 5 mg PO DAILY@0830 [facility] Stop: 06/12/18 08:29 Last Admin: 06/11/18 08:16 Dose: 5 mg Multivitamins/Minerals (Theragran/Minerals Tab*) 1 tab PO DAILY [facility] Last Admin: 06/11/18 08:16 Dose: 1 tab Ondansetron HCl (Zofran Inj*) 4 mg IV Q6H PRN PRN Reason: NAUSEA Tamsulosin HCl (Flomax Cap*) 0.4 mg PO DAILY [facility] Last Admin: 06/11/18 08:16 Dose: 0.4 mg Oxygen Devices in Use Now: None Appearance: elderly male alert in NAD Eyes: No Scleral Icterus, PERRLA Ears/Nose/Mouth/Throat: Mucous Membranes Moist Neck: NL Appearance and Movements; NL JVP Respiratory: Symmetrical Chest Expansion and Respiratory Effort, Clear to Auscultation Cardiovascular: NL Sounds; No Murmurs; No JVD, RRR, No Edema Abdominal: NL Sounds; No Tenderness; No Distention Extremities: No Edema, No Clubbing, Cyanosis Skin: No Rash or Ulcers, No Nodules or Sclerosis Neurological: NL Muscle Strength and Tone, - - alert Lines/Tubes/Other Access: Clean, Dry and Intact Peripheral IV Nutrition: Taking PO's Result Diagrams: 06/11/18 06:40 02/25/19 06:40 Microbiology and Other Data: Microbiology 06/07/18 11:00 Stool Gross Appearance - Final Stool C. difficile DNA Amplification - Final 027 Presumptive NEGATIVE Toxigenic C.diff NEGATIVE Assess/Plan/Problems-Billing Assessment: This is a 83 year old man with history of HTN, seizure disorder, BPH who presented to the ED yesterday with diarrhea and was found to have hypernatremia , ANIBAL, and a possible partial small bowel obstruction - Patient Problems (1) Pulmonary edema Comment: - Clinically improving -Likely secondary tohydration due to hypovolemic hyponatremia with DHN on presentation -CXR: Pulmonary edema -awaiting echo results (2) Hypernatremia Comment: #Hypovolemic hypernatremia: -Resolved (3) ANIBAL (acute kidney injury) Comment: -Resolved -Likely due to diarrhea (4) Acidosis, metabolic Comment: -Resolved (5) Diarrhea Comment: - C. diff and rotavirus tests (-) -Shiga toxin 1&2: (-) -Blood Cx: (-)x3 days - Continue to follow stool cultures -Suspect viral enteritis vs symptom of pSBO? -Repeat KUB improving SBO (6) HTN (hypertension) Comment: -Continue Atenolol; continue Tamsulosin for BPH (7) Partial small bowel obstruction Comment: -Improving -Continue low residue diet -Continue watchful waiting (8) DVT prophylaxis Comment: -Continue Heparin SQ to q12H given advanced age Status and Disposition: -Appreciate PT input; no needs identified at this time; Continue PT F/U -Corrected electrolyte abnormalities; will continue to follow -Pt R/O for DVT on RLE -Possible D/C home tomorrow
[2018-06-12 06:24] LABS: ABS Basophils 0 10^3/ul (0-0.2); ABS Eosinophils 0.3 10^3/ul (0-0.6); ABS Lymphocytes 2.6 10^3/ul (1.0-4.8); ABS Monocytes 1.1 10^3/ul (0-0.8); ABS Nucleated RBC 0 10^3/ul; Eosinophil % 2.5 %; Hematocrit 46 % (42-52); Hemoglobin 15.8 g/dl (14.0-18.0); Lymphocyte % 26.2 %; Mean Corpuscular HGB Conc 34 g/dl (31-36); Mean Corpuscular Hemoglobin 31 pg (27-31); Mean Corpuscular Volume 90 fL (80-94); Mean Platelet Volume 7.3 fL (7.4-10.4); Nucleated Red Blood Cells % 0.2; Platelet Count 268 10^3/ul (150-450); Red Blood Count 5.11 10^6/ul (4.00-5.40); Red Cell Distribution Width 14 % (10.5-15)
[2018-06-12 06:48] LABS: Calcium 9.4 mg/dL (8.6-10.3); EGFR African American 113.1 (>60); EGFR Non-African American 93.4 (>60); Potassium 3.5 mmol/L (3.5-5.0)
[2018-06-12] MEDS: Tamsulosin CAP* 0.4 MG PO SCH (08:00)
[2018-06-12] MEDS ORDERED: NS 0.9% 500 ML* 500 ML IV SCH (08:00)
[2018-06-12] MEDS: carBAMazepine TAB(*) 200 MG PO SCH ×3 (08:00→20:36)
[2018-06-12] MEDS: Heparin VIAL(*) 5000 UNITS/ML VIAL (FIVE THOUSAND) SUBCUT SCH ×2 (08:00→20:36)
[2018-06-12] MEDS: Atenolol TAB* 50 MG PO SCH (08:00)
[2018-06-12] MEDS: Multivitamins/Minerals TAB PO SCH (08:00)
--- NOTE | 2018-06-12 10:14 | PN ---
Subjective Date of Service: 06/12/18 Interval History: pt confused. Denies abdominal pain. Reports he ate a "good breakfast" No nursing concerns Objective Active Medications: Albuterol (Ventolin 2.5 Mg/3 Ml Neb.Ann*) 2.5 mg INH Q2H PRN PRN Reason: SOB/WHEEZING Last Admin: 06/10/18 18:03 Dose: 2.5 mg Atenolol (Tenormin Tab*) 50 mg PO DAILY [facility] Last Admin: 06/12/18 08:00 Dose: 50 mg Carbamazepine (Tegretol Tab(*)) 200 mg PO TID [facility] Last Admin: 06/12/18 08:00 Dose: 200 mg Dicyclomine HCl (Bentyl Cap*) 10 mg PO QID PRN PRN Reason: PAIN - ABDOMINAL Last Admin: 06/08/18 20:49 Dose: 10 mg Heparin Sodium (Porcine) (Heparin Vial(*)) 5,000 units SUBCUT Q12H [facility] Last Admin: 06/12/18 08:00 Dose: 5,000 units Sodium Chloride (Ns 0.9% 500 Ml*) 500 mls @ 200 mls/hr IV PER RATE [facility] Multivitamins/Minerals (Theragran/Minerals Tab*) 1 tab PO DAILY [facility] Last Admin: 06/12/18 08:00 Dose: 1 tab Ondansetron HCl (Zofran Inj*) 4 mg IV Q6H PRN PRN Reason: NAUSEA Tamsulosin HCl (Flomax Cap*) 0.4 mg PO DAILY [facility] Last Admin: 06/12/18 08:00 Dose: 0.4 mg Vital Signs - 8 hr 06/12/18 02:59 Temperature 97.9 F Pulse Rate 78 Respiratory 28 Rate Blood Pressure 123/87 (mmHg) O2 Sat by Pulse 95 Oximetry Oxygen Devices in Use Now: None Appearance: elderly male alert confused sitting up in a chair in NAD Eyes: No Scleral Icterus, PERRLA Ears/Nose/Mouth/Throat: Mucous Membranes Moist Neck: NL Appearance and Movements; NL JVP Respiratory: Symmetrical Chest Expansion and Respiratory Effort, Clear to Auscultation Cardiovascular: NL Sounds; No Murmurs; No JVD, RRR, No Edema Abdominal: NL Sounds; No Tenderness; No Distention Extremities: No Edema, No Clubbing, Cyanosis Skin: No Rash or Ulcers, No Nodules or Sclerosis Neurological: Alert and Oriented x 3, NL Sensation, NL Muscle Strength and Tone Lines/Tubes/Other Access: Clean, Dry and Intact Peripheral IV Nutrition: Taking PO's Result Diagrams: 06/12/18 05:28 06/12/18 05:28 Microbiology and Other Data: Microbiology 06/07/18 11:00 Stool Gross Appearance - Final Stool C. difficile DNA Amplification - Final 027 Presumptive NEGATIVE Toxigenic C.diff NEGATIVE Assess/Plan/Problems-Billing Assessment: This is a 83 year old man with history of HTN, seizure disorder, BPH who presented to the ED yesterday with diarrhea and was found to have hypernatremia , ANIBAL, and a possible partial small bowel obstruction - Patient Problems (1) Pulmonary edema Comment: -Resolved -Likely secondary to dehydration due to hypovolemic hyponatremia with DHN on presentation -Echo results: EF 65-70%, LV chamber size decreased, mild LV hypertrophy, normal LV function, left atrium mildly dilated, RV chamber size and systolic function are wnls, no significant valvular abnormalities (2) Hypernatremia Comment: #Hypovolemic hypernatremia: -Resolved - now sodium slightly low - possibly secondary to diuertics after he was found to have pulm edema, chloride low, BUN/Creat high patient not drinnking a lot of fluids suspect dehydration. Plan to give small bolus (3) ANIBAL (acute kidney injury) Comment: -Resolved -Likely due to diarrhea (4) Acidosis, metabolic Comment: -Resolved (5) Diarrhea Comment: - diarrhe anow resolved - stool cx showing + lactoferrin - C. diff and rotavirus tests (-) -Shiga toxin 1&2: (-) -Blood Cx: (-)x3 days -Suspect viral enteritis vs symptom of pSBO? -Repeat KUB improving SBO (6) HTN (hypertension) Comment: -Continue Atenolol; continue Tamsulosin for BPH (7) Partial small bowel obstruction Comment: -Improving -Continue low residue diet -Continue watchful waiting (8) DVT prophylaxis Comment: -Continue Heparin SQ to q12H given advanced age (9) Seizure disorder Comment: - no seizures noted, continue precautions continue Tegretrol Status and Disposition: -Appreciate PT input; no needs identified at this time; Continue PT F/U -Corrected electrolyte abnormalities; will continue to follow -Pt R/O for DVT on RLE -Possible D/C home tomorrow
[2018-06-13] MEDS: Heparin VIAL(*) 5000 UNITS/ML VIAL (FIVE THOUSAND) SUBCUT SCH (07:49)
[2018-06-13] MEDS: Multivitamins/Minerals TAB PO SCH (07:50)
[2018-06-13] MEDS: Tamsulosin CAP* 0.4 MG PO SCH (07:50)
[2018-06-13] MEDS: Atenolol TAB* 50 MG PO SCH (07:50)
[2018-06-13] MEDS: carBAMazepine TAB(*) 200 MG PO SCH ×2 (07:50→14:10)
[2018-06-13 08:33] LABS: Hematocrit 48 % (42-52); Hemoglobin 16.4 g/dl (14.0-18.0); Mean Corpuscular HGB Conc 34 g/dl (31-36); Mean Corpuscular Hemoglobin 31 pg (27-31); Mean Corpuscular Volume 91 fL (80-94); Mean Platelet Volume 7.3 fL (7.4-10.4); Platelet Count 328 10^3/ul (150-450); Red Blood Count 5.31 10^6/ul (4.00-5.40); Red Cell Distribution Width 14 % (10.5-15); White Blood Count 9.4 10^3/ul (3.5-10.8)
[2018-06-13 08:48] LABS: BUN/Creatinine Ratio 32.5 (8-20); Calcium 9.3 mg/dL (8.6-10.3); EGFR African American 111.4 (>60); EGFR Non-African American 92.1 (>60); Potassium 3.5 mmol/L (3.5-5.0)
[2018-06-13 08:55] LABS: ABS Basophils 0.1 10^3/ul (0-0.2); ABS Eosinophils 0.2 10^3/ul (0-0.6); ABS Lymphocytes 2.9 10^3/ul (1.0-4.8); ABS Neutrophils 5.2 10^3/ul (1.5-7.7); ABS Nucleated RBC 0 10^3/ul; Eosinophil % 2.6 %; Lymphocyte % 30.6 %; Nucleated Red Blood Cells % 0.2
--- NOTE | 2018-06-13 14:03 | DCNOTE ---
Subjective Date of Service: 06/13/18 Interval History: Patient doing well, eating, no further diarrhea - nurse reports 2 BMs today.. No complaints of abdominal pain. Ambulating with walker in hallway. Nephew at bedside and states he is close to his baseline and wants to take him home - reporting he has care at his baseline 22 hours a day and will for the next few days have 24 hour care. Objective Active Medications: Albuterol (Ventolin 2.5 Mg/3 Ml Neb.Ann*) 2.5 mg INH Q2H PRN PRN Reason: SOB/WHEEZING Last Admin: 06/10/18 18:03 Dose: 2.5 mg Atenolol (Tenormin Tab*) 50 mg PO DAILY [facility] Last Admin: 06/13/18 07:50 Dose: 50 mg Carbamazepine (Tegretol Tab(*)) 200 mg PO TID [facility] Last Admin: 06/13/18 07:50 Dose: 200 mg Dicyclomine HCl (Bentyl Cap*) 10 mg PO QID PRN PRN Reason: PAIN - ABDOMINAL Last Admin: 06/08/18 20:49 Dose: 10 mg Heparin Sodium (Porcine) (Heparin Vial(*)) 5,000 units SUBCUT Q12H [facility] Last Admin: 06/13/18 07:49 Dose: 5,000 units Sodium Chloride (Ns 0.9% 500 Ml*) 500 mls @ 200 mls/hr IV PER RATE [facility] Last Admin: 06/12/18 10:01 Dose: 200 mls/hr Multivitamins/Minerals (Theragran/Minerals Tab*) 1 tab PO DAILY [facility] Last Admin: 06/13/18 07:50 Dose: 1 tab Ondansetron HCl (Zofran Inj*) 4 mg IV Q6H PRN PRN Reason: NAUSEA Tamsulosin HCl (Flomax Cap*) 0.4 mg PO DAILY [facility] Last Admin: 06/13/18 07:50 Dose: 0.4 mg Vital Signs - 8 hr 06/13/18 08:00 Respiratory 20 Rate Oxygen Devices in Use Now: None Appearance: eldelry male alert in NAD, confused Eyes: No Scleral Icterus, PERRLA Ears/Nose/Mouth/Throat: NL Teeth, Lips, Gums, Mucous Membranes Moist Neck: NL Appearance and Movements; NL JVP Respiratory: Symmetrical Chest Expansion and Respiratory Effort, Clear to Auscultation Cardiovascular: NL Sounds; No Murmurs; No JVD, RRR, No Edema Abdominal: NL Sounds; No Tenderness; No Distention Extremities: No Edema, No Clubbing, Cyanosis Skin: No Rash or Ulcers, No Nodules or Sclerosis Neurological: NL Sensation, NL Gait, NL Muscle Strength and Tone, - - alert Lines/Tubes/Other Access: Clean, Dry and Intact Peripheral IV Nutrition: Taking PO's Result Diagrams: 06/13/18 08:07 06/13/18 08:07 Microbiology and Other Data: Microbiology 06/07/18 11:00 Stool Gross Appearance - Final Stool C. difficile DNA Amplification - Final 027 Presumptive NEGATIVE Toxigenic C.diff NEGATIVE Assess/Plan/Problems-Billing Assessment: This is a 83 year old man with history of HTN, seizure disorder, BPH who presented to the ED yesterday with diarrhea and was found to have hypernatremia , ANIBAL, and a possible partial small bowel obstruction - Patient Problems (1) Pulmonary edema Comment: -Resolved -Likely secondary to dehydration due to hypovolemic hyponatremia with DHN on presentation -Echo results: EF 65-70%, LV chamber size decreased, mild LV hypertrophy, normal LV function, left atrium mildly dilated, RV chamber size and systolic function are wnls, no significant valvular abnormalities (2) Hypernatremia Comment: #Hypovolemic hypernatremia: -Resolved (3) ANIBAL (acute kidney injury) Comment: -Resolved -Likely due to diarrhea (4) Acidosis, metabolic Comment: -Resolved (5) Diarrhea Comment: - suspect viral gastroenteritis - his family (4) member had the same symptoms - diarrhea resolved; normal BMS - stool cx showing + lactoferrin - C. diff and rotavirus tests (-) -Shiga toxin 1&2: (-) -Blood Cx: (-)x3 days -Small pSBO - improving - discussed diet and when to return if acute symptoms with nephew who is the critical care unit nurse (6) HTN (hypertension) Comment: -Continue Atenolol; continue Tamsulosin for BPH (7) Partial small bowel obstruction Comment: -Improving -Continue low residue diet -Continue watchful waiting (8) DVT prophylaxis Comment: -Continue Heparin SQ to q12H given advanced age (9) Seizure disorder Comment: - no seizures noted, continue precautions continue Tegretrol Status and Disposition: -DC to home; nephew will transport
[2018-06-13 15:16] VITALS: BP 98/72
--- NOTE | 2018-06-13 21:00 | DS ---
CC: Dr. Stanley * DISCHARGE SUMMARY: DATE OF ADMISSION: 06/06/18 DATE OF DISCHARGE: 06/13/18 PROVIDER: Katie Green NP. ATTENDING PHYSICIAN: Dr. Vigil * (report dictated by Katie Green NP). PRIMARY CARE PROVIDER: Dr. Stanley. DISCHARGE DIAGNOSES: 1. Diarrhea, dehydration, hypernatremia, suspect secondary to viral gastroenteritis. 2. Small-bowel obstruction, resolving. 3. Acute renal failure, resolved, thought to be secondary to diarrhea. 4. Multiple rib fractures. SECONDARY DIAGNOSES: 1. Seizure disorder. 2. Hypertension. 3. BPH. 4. Vitamin B12 deficiency. DISCHARGE MEDICATIONS: 1. Atenolol 50 mg p.o. daily. 2. Multivitamin 1 tab p.o. daily. 3. Carbamazepine 200 mg p.o. t.i.d. 4. Flomax 0.4 mg p.o. daily. HISTORY OF PRESENT ILLNESS AND HOSPITAL COURSE: Please see history and physical by Dr. Vigil for full admission details; but in summary, this is an 83 -year-old male who presented on 06/06/18 by his nephew, with whom he lives, for concern for diarrhea. They reported that the diarrhea began last evening and they noted the patient to be weak and brought him to the emergency department for further evaluation. 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 At evaluation in the emergency department, he was found to be hypernatremic with a sodium of 149, acute renal failure with a creatinine of 2.27, and noted to be quite dry on evaluation. It was felt the patient had a viral gastroenteritis. On CT imaging on admission , he was found to have a mild partial small-bowel obstruction with transition in the right lower quad, with no perforation or ischemia. It was also noted that he had multiple rib fractures. Per the family, with whom he lives, there are multiple family membranes who had similar symptoms with nausea, vomiting, diarrhea. The patient was given aggressive IV fluid hydration. Stool culture was sent, which did show a positive lactoferrin. Negative for rotavirus and C. diff. Stool for occult blood was negative. The patient has done well throughout his hospitalization. He remained hemodynamically stable and afebrile throughout. Blood cultures were negative with no growth, day 5. He did have a carbamazepine level which was normal at 5.8. The patient is close to his baseline per the nephew with whom lives and is his caregiver. The patient actually was next door with his nephew's son and daughter- in-law, in which the [id number] is a visiting nurse; however, the entire family cares for the patient. The patient was ambulated in the hallway by myself and with the nephew and per the nephew he appears to his baseline. I do believe the patient is at high fall risk and this was discussed and at this time, the family is refusing subacute rehab. The patient does have dementia at his baseline and is confused. He is able to follow commands; however, I do not think he will consistently use a walker at home. Due to the findings of rib fractures, I do feel the patient may have had some falls. The patient is to follow up with his primary care provider within 5 to 7 days. In regards to the small-bowel obstruction, he underwent serial abdominal x-rays which showed improvement in the small-bowel obstruction. He is noted on x-ray yesterday to still have a small partial obstruction; however, the patient is having normal bowel movements, no abdominal pain or distention, tolerating his diet well and was recommended to continue a soft diet limiting or removing dairy ; focusing on soft vegetables, rice, lean meats. Per the nephew, there is a concern of his chronic intermittent diarrhea which is possibly linked to dairy. They are going to try him on a dairy-free diet to see if his chronic diarrhea improves. DISCHARGE PLAN: 1. Follow up with Dr. Stanley within 3 to 7 days. 2. It was discussed with the nephew at length the signs and symptoms of worsening small-bowel obstruction and when to return to the emergency department. Again, we discussed diet. 3. Stable for discharge home with family. Did recommend possible outpatient physical therapy. TIME SPENT: Approximately 60 minutes spent on this discharge. KATIE GREEN, TERRI [id number]/[facility] #: [id number] FAIZA
== END 2018-06-13 15:30 | disposition home or self-care (01) | DRG 683 ==
LOC: ED 16:26 → MED 21:15
PROVIDERS: ADMIT Hospitalist; ATTEND Hospitalist
DX: N17.9 Acute kidney failure, unspecified (principal); K56.600 Partial intestinal obstruction, unspecified as to cause; S22.49XA Multiple fractures of ribs, unspecified side, initial encounter for closed fracture; E87.0 Hyperosmolality and hypernatremia; E87.2 Acidosis; J81.1 Chronic pulmonary edema; A08.4 Viral intestinal infection, unspecified; E86.0 Dehydration; G40.909 Epilepsy, unspecified, not intractable, without status epilepticus; K58.0 Irritable bowel syndrome with diarrhea; I10 Essential (primary) hypertension; N40.0 Benign prostatic hyperplasia without lower urinary tract symptoms; E86.1 Hypovolemia; E53.8 Deficiency of other specified B group vitamins; F03.90 Unspecified dementia, unspecified severity, without behavioral disturbance, psychotic disturbance, mood disturbance, and anxiety; W19.XXXA Unspecified fall, initial encounter; J45.909 Unspecified asthma, uncomplicated; H91.90 Unspecified hearing loss, unspecified ear; Y92.9 Unspecified place or not applicable; Z88.6 Allergy status to analgesic agent; Z82.49 Family history of ischemic heart disease and other diseases of the circulatory system; Z82.5 Family history of asthma and other chronic lower respiratory diseases; Z83.49 Family history of other endocrine, nutritional and metabolic diseases; Z87.820 Personal history of traumatic brain injury; Z97.4 Presence of external hearing-aid; R06.82 Tachypnea, not elsewhere classified
CPT/HCPCS: 36415; 71045; 74018; 74019; 74176; 80048; 80053; 80156; 82270; 82330; 82438; 82803; 83605; 83630; 83690; 83735; 83880; 84100; 84302; 84484; 84999; 85025; 85027; 85379; 86140; 87040; 87045; 87046; 87425; 87493; 87899; 93005; 93306; 94640; 99284; A9270-GY; G8978-GP-CJ; G8979-GP-CH; J0610; J1644; J1940; J2543; J2930; J3475; J7611

== ENCOUNTER 2018-06-20 00:10 | Emergency (ER) | payer MEDICARE ==
--- NOTE | 2018-06-20 01:44 | ED ---
Head Injury - HPI Summary HPI Summary: 83 year old male presents with facial laceration today. He is at assisted living and ended up having a mechanical fall. Fall was unwitnessed. He denies any pain. He states that he tripped and fell. He has a laceration to the left eyebrow. He denies any headache. He is not on blood thinners. No nausea and no vomiting. No chest pain or shortness breath. Denies abdominal pain. No hip pain. Denies any other injury. Offers no complaints at this time. Unsure when tetanus was. - History Of Current Complaint Chief Complaint: EDHeadInjury Stated Complaint: LACERATION PER EMS Time Seen by Provider: 06/20/18 01:05 Pain Intensity: 0 - Allergies/Home Medications Allergies/Adverse Reactions: Allergies Allergy/AdvReac Type Severity Reaction Status Date / Time aspirin Allergy Swelling Verified 06/20/18 01:13 Of Face,Lips,& Throat ibuprofen Allergy Unknown Verified 06/20/18 01:13 Reaction Details Home Medications: Home Medications Acetaminophen 650 mg PO Q6HR PRN 06/20/18 [History Confirmed 06/20/18] Gabapentin 200 mg PO TID 06/20/18 [History Confirmed 06/20/18] K-Phos Neutral Tablet 250 mg PO TID 06/20/18 [History Confirmed 06/20/18] Lidoderm 5% Patch* 3 applic TRANSDERM DAILY 06/20/18 [History Confirmed 06/20/18 ] Metoprolol Succinate XL TAB* 50 mg PO DAILY 06/20/18 [History Confirmed 06/20/18 ] Miralax* 17 gm PO DAILY PRN 06/20/18 [History Confirmed 06/20/18] PMH/Surg Hx/FS Hx/Imm Hx Endocrine/Hematology History: Reports: Other Endocrine/Hematological Disorders - B12 Deficiency Denies: Hx Anticoagulant Therapy, Hx Diabetes Cardiovascular History: Reports: Hx Hypertension Respiratory History: Reports: Hx Asthma, Hx Chronic Obstructive Pulmonary Disease (COPD), Other Respiratory Problems/Disorders - HX OF SEIZURES GI History: Reports: Hx Irritable Bowel, Other GI Disorders - SMBO History: Reports: Hx Benign Prostatic Hyperplasia Denies: Hx Dialysis, Hx Renal Disease Sensory History: Reports: Hx Contacts or Glasses, Hx Hearing Aid, Hx Hearing Problem - WEARS HEARING AIDS Opthamlomology History: Reports: Hx Contacts or Glasses Neurological History: Reports: Hx Dementia, Hx Seizures Infectious Disease History: Unable to Obtain/Confirm Infectious Disease History: Denies: Traveled Outside the [place] in Last 30 Days - Family History Known Family History: Positive: Other - Patient does not recall his FHx - Social History Alcohol Use: None Substance Use Type: Reports: None Smoking Status (MU): Never Smoked Tobacco Review of Systems Negative: Chest Pain Negative: Shortness Of Breath Positive: Other - facial laceration Negative: Headache All Other Systems Reviewed And Are Negative: Yes Physical Exam Triage Information Reviewed: Yes Vital Signs On Initial Exam: Initial Vitals Pulse Pulse Ox 63 92 06/20/18 00:22 06/20/18 00:22 Vital Signs Reviewed: Yes Appearance: Positive: Well-Appearing Skin: Positive: Warm, Dry, Other - 3cm by 1cm irregular near left eyebrow laceration Head/Face: Positive: Normal Head/Face Inspection, Other - no step off, racoon eyes, everett sign Eyes: Positive: Normal, EOMI, TANYA, Conjunctiva Clear ENT: Positive: Normal ENT inspection, Pharynx normal, TMs normal Respiratory/Lung Sounds: Negative: Clear to Auscultation, Breath Sounds Present Cardiovascular: Negative: Normal, RRR Abdomen Description: Positive: Nontender, Soft Bowel Sounds: Positive: Present Musculoskeletal: Positive: Strength/ROM Intact - able to move all extremities Neurological: Positive: Sensory/Motor Intact, CN Intact II-III. Negative: Alert , Oriented to Person Place, Time - not orientated to time Psychiatric: Positive: Normal - [place] Coma Scale Best Eye Response: 4 - Spontaneous Best Motor Response: 6 - Obeys Commands Best Verbal Response: 5 - Oriented Coma Scale Total: 15 Procedures - Laceration/Wound Repair 1 Location: face Description: Irregular Anesthesia: Local, 1.0%, Epi Length, Depth and Shape: 3cm by 1cm irregular near left eyebrow Irrigated w/ Saline (ccs): 200 Suture Type: Prolene Number of Sutures: 5 Diagnostics - Vital Signs Vital Signs Temp Pulse Resp BP Pulse Ox 06/20/18 00:25 97.6 F 64 20 122/80 94 06/20/18 00:23 64 122/80 93 06/20/18 00:22 63 92 - Laboratory Lab Statement: Any lab studies that have been ordered have been reviewed, and results considered in the medical decision making process. - CT brain CT Interpretation Completed By: Radiologist Summary of CT Findings: IMPRESSION: 1. No traumatic intracranial abnormalities. 2. Age-related atrophy and mild chronic small vessel ischemic disease. neck CT Interpretation Completed By: Radiologist Summary of CT Findings: IMPRESSION: 1. No cervical spine traumatic abnormalities. 2. Moderate multilevel cervical spondylopathy causing multilevel canal. stenosis. Head Injury Course/Dx - Diagnoses Provider Diagnoses: Facial laceration, Head injury, Fall Discharge - Sign-Out/Discharge Documenting (check all that apply): Patient Departure Patient Received Moderate/Deep Sedation with Procedure: No - Discharge Plan Condition: Good Disposition: HOME Patient Education Materials: Care For Your Stitches (ED) Referrals: Lalit Stanley MD [Primary Care Provider] - Additional Instructions: Keep area clean and dry for 24 hours Take Tylenol for pain every 6 hours Return to ED or primary for suture removal in 5 days follow up with primary Return to ED if develop signs of infection such as fever, spreading redness, or pus formation - Billing Disposition and Condition Condition: GOOD Disposition: Home
[2018-06-20 03:41] VITALS: BP 111/64
== END 2018-06-20 03:41 | disposition home or self-care (01) ==
LOC: ED 00:10
DX: S01.112A Laceration without foreign body of left eyelid and periocular area, initial encounter (principal); S09.90XA Unspecified injury of head, initial encounter; W01.0XXA Fall on same level from slipping, tripping and stumbling without subsequent striking against object, initial encounter; Y92.099 Unspecified place in other non-institutional residence as the place of occurrence of the external cause; M48.9 Spondylopathy, unspecified; I10 Essential (primary) hypertension; J44.9 Chronic obstructive pulmonary disease, unspecified; F03.90 Unspecified dementia, unspecified severity, without behavioral disturbance, psychotic disturbance, mood disturbance, and anxiety; R56.9 Unspecified convulsions; Z88.6 Allergy status to analgesic agent
CPT/HCPCS: 12013; 70450; 72125; 99283

== ENCOUNTER 2018-07-20 14:52 | Inpatient (IN) | payer MEDICARE ==
--- NOTE | 2018-07-20 15:12 | ED ---
Adult Trauma - HPI Summary HPI Summary: This patient is an 83 year old M brought in by EMS from [facility] with a chief complaint of fall since just RN EMBEDDED . The patient fell out of his chair. Patient reports SOB, left elbow abrasion with drainage, and audible expiratory wheeze. Patient denies back pain or CP. The patient is usually tachypnic and breathing quickly. He is currently positive for swine flu. The patient has a possible pelvic or inner hip fracture. He has a high tolerance to pain. The patient started Tamiflu today. PMHX Dementia. Vitals in the room: HR 76 bpm, BP 121/68. - History of Current Complaint Chief Complaint: EDRespiratoryDistress Stated Complaint: FALL/SOB PER EMS Time Seen by Provider: 07/20/18 14:57 Hx Obtained From: Patient, EMS Mechanism of Injury: Fall Onset/Duration: Started Minutes Ago Pain Intensity: 0 Associated Signs & Symptoms: Positive: SOB. Negative: Chest Pain - Additional Pertinent History Primary Care Physician: BHARATH - Allergy/Home Medications Allergies/Adverse Reactions: Allergies Allergy/AdvReac Type Severity Reaction Status Date / Time aspirin Allergy Swelling Verified 06/20/18 01:13 Of Face,Lips,& Throat ibuprofen Allergy Unknown Verified 06/20/18 01:13 Reaction Details Home Medications: Home Medications Acetaminophen TAB* [Tylenol TAB*] 650 mg PO Q6H PRN 07/20/18 [History Confirmed 07/20/18] Ipratropium/Albuterol Sulfate [Iprat-Albut 0.5-3(2.5) mg/3 ml] 3 ml INH TID 09/02 [History Confirmed 07/20/18] Levofloxacin TAB* [Levaquin TAB*] 500 mg PO DAILY 07/20/18 [History Confirmed ] Loperamide CAP* [Imodium CAP*] 2 mg PO Q4H PRN 07/20/18 [History Confirmed 07/20] Oseltamivir CAP* [Tamiflu CAP*] 30 mg PO BID 07/20/18 [History Confirmed ] guaiFENesin ER TAB [Mucinex*] 600 mg PO BID 07/20/18 [History Confirmed 07/20/18 ] PMH/Surg Hx/FS Hx/Imm Hx Endocrine/Hematology History: Reports: Other Endocrine/Hematological Disorders - B12 Deficiency Denies: Hx Anticoagulant Therapy, Hx Diabetes Cardiovascular History: Reports: Hx Hypertension Respiratory History: Reports: Hx Asthma, Hx Chronic Obstructive Pulmonary Disease (COPD), Other Respiratory Problems/Disorders - HX OF SEIZURES GI History: Reports: Hx Irritable Bowel, Other GI Disorders - SMBO History: Reports: Hx Benign Prostatic Hyperplasia Denies: Hx Dialysis, Hx Renal Disease Sensory History: Reports: Hx Contacts or Glasses, Hx Hearing Aid, Hx Hearing Problem - WEARS HEARING AIDS Opthamlomology History: Reports: Hx Contacts or Glasses Neurological History: Reports: Hx Dementia, Hx Seizures Infectious Disease History: No Infectious Disease History: Denies: Traveled Outside the [place] in Last 30 Days - Family History Known Family History: Positive: Other - Patient does not recall his FHx - Social History Alcohol Use: None Substance Use Type: Reports: None Smoking Status (MU): Never Smoked Tobacco Review of Systems Negative: Chest Pain Positive: Shortness Of Breath, Other - expiratory wheezes Negative: Myalgia - back pain Positive: Other - left elbow abrasion All Other Systems Reviewed And Are Negative: Yes Physical Exam - Summary Physical Exam Summary: Constitutional: Tachypnic, one word sentence fragments Skin: Warm, Dry HENT: Normocephalic; No Racoons eyes; No everett's sign; No abrasion; No contusion; No hemotympanum; No maxilla facial tenderness or instability; Dentition are smooth; No dental trauma; No trismus Eyes: EOM normal, PERRL Neck: Trachea is midline. No stridor; No JVD; No step off; No posterior cervical spine tenderness Cardio: Rhythm regular, rate normal Heart sounds normal; Intact distal pulses; The pedal pulses are 2+ and symmetric. Radial pulses are 2+ and symmetric. Pulmonary/Chest wall: severe expiratory wheezes. Equal chest rise; No flail segment; No rib tenderness; No sternal tenderness Abd: Soft, Appearance normal. No distension; No tenderness; No palpable pulsatile mass; No Cullens sign; No Nino-Turners sign Musculoskeletal: Full ROM and no tenderness at hips, ankles, shoulders, elbows and knees; No joint swelling; No vertebral body tenderness; No paraspinal tenderness; No step off or deformity of the spine; Pelvis is stable to lateral compression and rock Neuro: Alert, Oriented x3, Strength 5/5 all extremities. : No blood at urethral meatus Psych: Mood and affect Normal GCS: 15 Triage Information Reviewed: Yes Vital Signs On Initial Exam: Initial Vitals Temp Pulse Resp BP Pulse Ox 99.5 F 75 46 121/68 97 07/20/18 14:59 07/20/18 14:59 07/20/18 14:59 07/20/18 14:59 07/20/18 14:59 Vital Signs Reviewed: Yes Diagnostics - Vital Signs Vital Signs Temp Pulse Resp BP Pulse Ox 07/20/18 14:59 99.5 F 75 46 121/68 97 - Laboratory Result Diagrams: 07/20/18 15:25 07/20/18 15:25 Lab Statement: Any lab studies that have been ordered have been reviewed, and results considered in the medical decision making process. - Radiology CXR Radiology Interpretation Completed By: Radiologist Summary of Radiographic Findings: CARDIOMEGALY WITH INTERSTITIAL EDEMA CONSISTENT WITH CHF. ED physician has reviewed this report. - CT Brain CT Interpretation Completed By: Radiologist Summary of CT Findings: 1. NO EVIDENCE FOR ACUTE INTRACRANIAL ABNORMALITY. 2. ATROPHY AND FINDINGS CONSISTENT WITH MILD CHRONIC SMALL VESSEL ISCHEMIC CHANGES. 3. AIR-FLUID LEVEL WITHIN THE RIGHT MAXILLARY SINUS. ED physician has reviewed this report. C-spine CT Interpretation Completed By: Radiologist Summary of CT Findings: No CT evidence for traumatic cervical spine injury. No significant interval change in multilevel advanced degenerative spondylosis and facet joint osteoarthritis with associated spinal stenosis as described. ED physician has reviewed this report. Chest/abd/pelvis CT Interpretation Completed By: Radiologist Summary of CT Findings: 1. SMALL DEPENDENT RIGHT LOWER LOBE INFILTRATE AND TRACE PLEURAL EFFUSION. 2. SEVERE BURST FRACTURE OF THE T12 VERTEBRAL BODY, UNCHANGED FROM THE PRIOR STUDY. 3. MULTIPLE SUBACUTE TO CHRONIC BILATERAL LOWER RIB FRACTURES. 4. LIMITED STUDY DUE TO MOTION ARTIFACT. ED physician has reviewed this report - EKG 15:36 Cardiac Rate: NL - 79 bpm EKG Rhythm: Sinus Rhythm Summary of EKG Findings: No STEMI Re-Evaluation - Re-Evaluation First Eval Re-Evaluation Time: 16:02 Change: Improved Comment: The patient appears comfortable on Vapotherm, distress is diminished. Adult Trauma Course/Dx - Course Course Of Treatment: This patient is an 83 year old M brought in by EMS from [facility] with a chief complaint of fall since just RN EMBEDDED . The patient fell out of his chair. Patient reports SOB, left elbow abrasion with drainage, and audible expiratory wheeze. Patient denies back pain or CP. An EKG reveals NSR 79 bpm, no STEMI. CXR reveals, per radiologist, CARDIOMEGALY WITH INTERSTITIAL EDEMA CONSISTENT WITH CHF. CT brain reveals, per radiologist, 1. NO EVIDENCE FOR ACUTE INTRACRANIAL ABNORMALITY. 2. ATROPHY AND FINDINGS CONSISTENT WITH MILD CHRONIC SMALL VESSEL ISCHEMIC CHANGES. 3. AIR-FLUID LEVEL WITHIN THE RIGHT MAXILLARY SINUS. CT Chest/Abd/Pelvis reveals, per radiologist, 1. SMALL DEPENDENT RIGHT LOWER LOBE INFILTRATE AND TRACE PLEURAL EFFUSION. 2. SEVERE BURST FRACTURE OF THE T12 VERTEBRAL BODY, UNCHANGED FROM THE PRIOR STUDY. 3. MULTIPLE SUBACUTE TO CHRONIC BILATERAL LOWER RIB FRACTURES. 4. LIMITED STUDY DUE TO MOTION ARTIFACT. C-spine reveals, per radiologist, No CT evidence for traumatic cervical spine injury. No significant interval change in multilevel advanced degenerative spondylosis and facet joint osteoarthritis with associated spinal stenosis as described. Test results with no significant abnormalities. In the ED course the patient was given Albuterol, Furosemide, Methylprednisolone, and Nitroglycerin. We discussed patient care with Dr. Arambula , hospitalist, and they recommended admission. - Diagnoses Provider Diagnoses: Respiratory distress, Acute respiratory failure, Pulmonary edema, Influenza A - Physician Notifications Discussed Care Of Patient With: Luis Arambula Time Discussed With Above Provider: 16:05 Instructed by Provider To: Admit As Inpatient Discharge - Sign-Out/Discharge Documenting (check all that apply): Patient Departure - admission Patient Received Moderate/Deep Sedation with Procedure: No - Discharge Plan Condition: Fair Disposition: [facility] Referrals: Lalit Stanley MD [Primary Care Provider] - - Attestation Statements Document Initiated by Scribe: Yes Documenting Scribe: Vladimir Rojas Provider For Whom Scribe is Documenting (Include Credential): Jayesh Giang MD Scribe Attestation: Vladimir Solomon, scribed for Jayesh Giang MD on 07/20/18 at 1732. Status of Scribe Document: Ready
[2018-07-20] MEDS ORDERED: Albuterol/Ipratropium NEB.SOL* Albuterol 2.5 MG/Ipratropium 0.5 MG 3 ML INH ONE (15:13)
[2018-07-20] MEDS ORDERED: Albuterol/Ipratropium NEB.SOL* Albuterol 2.5 MG/Ipratropium 0.5 MG 3 ML ONE (15:14)
[2018-07-20] MEDS ORDERED: methylPREDNISolone 125 MG* 2 ML VIAL IV ONE (15:18)
[2018-07-20 15:35] LABS: ABS Basophils 0 10^3/ul (0-0.2); ABS Eosinophils 0.2 10^3/ul (0-0.6); ABS Lymphocytes 0.8 10^3/ul (1.0-4.8); ABS Neutrophils 3.9 10^3/ul (1.5-7.7); ABS Nucleated RBC 0 10^3/ul; Eosinophil % 3.2 %; Hematocrit 39 % (36-46); Hemoglobin 13.1 g/dL (14.0-18.0); Lymphocyte % 13.2 %; Mean Corpuscular HGB Conc 34 g/dL (31-36); Mean Corpuscular Hemoglobin 31 pg (27-31); Mean Corpuscular Volume 92 fL (80-94); Mean Platelet Volume 6.9 fL (7.4-10.4); Nucleated Red Blood Cells % 0; Platelet Count 209 10^3/uL (150-450); Red Blood Count 4.26 10^6 /uL (4.18-5.48); Red Cell Distribution Width 15 % (10.5-15); White Blood Count 5.9 10^3/uL (3.5-10.8)
[2018-07-20] MEDS ORDERED: Furosemide IV* 10 MG/ML VIAL (40 MG) IV SLOW PU ONE (15:47)
[2018-07-20] MEDS ORDERED: Nitro 2% OINT* (Nitroglycerin) 1 INCH/PAK PAK TOPICAL ONE (15:47)
[2018-07-20 15:51] LABS: Albumin 3.6 g/dL (3.2-5.2); Albumin/Globulin Ratio 1.1 (1-3); BUN/Creatinine Ratio 24.7 (8-20); Calcium 8.4 mg/dL (8.6-10.3); EGFR African American 103.9 (>60); EGFR Non-African American 85.9 (>60); Globulin 3.4 g/dL (2-4); Potassium 4.2 mmol/L (3.5-5.0); Total Bilirubin 0.4 mg/dL (0.2-1.0)
[2018-07-20] MEDS ORDERED: Iohexol 300* (CONTRAST) 10 ML SDV IV ONE (16:09)
[2018-07-20] MEDS ORDERED: Dicyclomine CAP* 10 MG PO PRN (16:34)
[2018-07-20] MEDS ORDERED: Acetaminophen TAB* 325 MG PO PRN (16:34)
[2018-07-20 18:10] LABS: Influenza A Molecular POSITIVE (Negative)
[2018-07-20 18:30] LABS: C Reactive Protein 140.74 mg/L (<8.01)
[2018-07-20] MEDS ORDERED: NS 0.9% 250 ML* 250 ML IV ONE (18:55)
[2018-07-20] MEDS: cefTRIAXone(*) 1 GM in NS 0.9% 50 ML* 50 ML IVPB SCH (18:59)
[2018-07-20 19:20] LABS: Urine Appearance Clear; Urine Bacteria Absent (Absent); Urine Bilirubin Negative (Negative); Urine Blood 2+ (Negative); Urine Color Yellow; Urine Glucose Negative (Negative); Urine Ketones Negative (Negative); Urine Nitrite Negative (Negative); Urine Protein Negative (Negative); Urine Red Blood Cell 3+(>10/hpf) (Absent); Urine Specific Gravity 1.014 (1.010-1.030); Urine Squamous Epithelial Cell Present (Absent); Urine Urobilinogen Negative (Negative); Urine White Blood Cell Absent (Absent)
[2018-07-20] MEDS: Albuterol/Ipratropium NEB.SOL* Albuterol 2.5 MG/Ipratropium 0.5 MG 3 ML INH SCH (19:30)
--- NOTE | 2018-07-20 19:45 | HP ---
Amended report to enter cosigning physician. HISTORY AND PHYSICAL: DATE OF ADMISSION: 07/20/18 PROVIDER: Katie Green NP ATTENDING PHYSICIAN: Dr. Luis Arambula* (report dictated by Katie Green NP). PRIMARY CARE PROVIDERS: 1. [facility] Provider. 2. Dr. Lalit Stanley. CHIEF COMPLAINT: Sent from [facility] with concern of multiple recent falls, shortness of breath, influenza A. HISTORY OF PRESENT ILLNESS: Mr. Muniz is an 83-year-old male with a past medical history of seizure disorder, dementia, frequent falls, multiple rib fractures, hypertension, BPH, vitamin B12 deficiency and irritable bowel with diarrhea, who per nephew at the bedside was found be short of breath yesterday on his visit and today the patient was found to have influenza A and have continued shortness of breath and "fast respirations". Per the nephew, he reports that he visits him daily at [facility] and prior to yesterday, he was at his baseline. Today, there was some concern because he was found to be very tachypneic with expiratory wheezes and had a fall today and yesterday bruising both his left and right hip. The patient was placed on Vapotherm 40 L of 50% in the emergency department due to he was found to be very tachypneic. Chest x-ray showing cardiomegaly with interstitial edema consistent with CHF. The emergency department gave him 80 mg IV Lasix. He was also given a nebulizer and Solu-Medrol 125 mg IV. On my evaluation, the patient per the nurse and family at the bedside appears to be doing much better. He continues to have respirations in the high 30s. The patient states that he is not short of breath and is comfortable. It should be noted that the patient is a very poor historian. Per the nephew, he tested positive for influenza A this morning at the facility. The patient was recently hospitalized at [facility] in the beginning of May with hypoxemia and atypical pneumonia, then again at the end of May for diarrhea , dehydration, hypernatremia thought to be secondary to viral gastroenteritis complicated by small bowel obstruction, and then again in the beginning of June where the family brought him back and he was admitted retirement care and he was sent to [facility] for subacute rehab. Per the nephew and his who are at the bedside who have been his main caregivers for several years, report that at the [facility] he has been falling multiple times due to that he is noncompliant using his walker as well as he eats whatever he wants, drinking 8 sodas a day and lots of sweets. He has been suffering for many years with chronic diarrhea and on one of his inpatient hospitalizations, he was taken off dairy and put on a low-sugar diet and the diarrhea actually improved. Lately, per the nephew, the diarrhea has returned. He has been trialing Bentyl, which seems to make his symptoms better. A MOLST was discussed. The patient is a DNR and DNI; however, their wish are for trial of noninvasive pressure with BiPAP and/or Vapotherm. PAST MEDICAL HISTORY: 1. History of seizure disorder. 2. Dementia. 3. Hypertension. 4. BPH. 5. Vitamin B12 deficiency. 6. History of small bowel obstruction. 7. History of pulmonary edema. HOME MEDICATIONS: 1. Tegretol 200 mg p.o. t.i.d. 2. Flomax 0.4 mg p.o. daily. 3. Mucinex 600 mg p.o. b.i.d. 4. Multivitamin with minerals 1 tab p.o. daily. 5. Imodium 2 mg p.o. q.4 hours p.r.n. 6. DuoNeb t.i.d. p.r.n. 7. Bentyl 10 mg p.o. q.i.d. p.r.n. 8. Atenolol 50 mg p.o. daily. 9. Acetaminophen 650 mg p.o. q.6 hours. 10. Levaquin 500 mg p.o. daily. 11. Tamiflu 30 mg p.o. b.i.d. ALLERGIES: ASPIRIN, IBUPROFEN. FAMILY HISTORY: Mother has a history of CHF and hypothyroidism. Father, history of lung cancer. SOCIAL HISTORY: Per the nephew, the patient has no history of tobacco abuse, but reports long-term secondhand exposure. 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 Denies alcohol use or history of. He was never and has no children. His nephew is his healthcare proxy. For many years, he has lived with his nephew and his on the property in the house next door with his son and his and children. Up until this year, the patient has been fairly independent and able to stay home alone during the day and walk in between homes. He does have a history of falling in the past. PHYSICAL EXAMINATION GENERAL APPEARANCE: An 83-year-old male sitting up in the emergency department stretcher, slightly tachypneic, appearing comfortable. The patient was able to answer some questions appropriately such as his name, date of . He is not able to recall the date or year. He is able to tell me where he is. Noted to be a very poor historian. VITAL SIGNS: Temperature 99.5, heart rate 82, respirations 29, O2 sat 99% on Vapotherm 40 L with 50%, blood pressure 133/83. HEENT: Head is normocephalic and atraumatic. Pupils are equal and reactive to light. Oropharynx is clear. Moist mucous membranes. NECK: Supple. No JVD noted. RESPIRATORY: Bilateral diffuse expiratory wheezes, diminished, slightly tachypneic. CARDIAC: S1, S2. Regular rate and rhythm. No murmur, rub, or gallop appreciated. ABDOMEN: Soft, nontender, nondistended. Bowel sounds throughout. EXTREMITIES: No clubbing, cyanosis, or edema. NEURO: Alert and oriented to self and place. Speech is clear. Strength is 5/ 5 throughout. No focal deficits noted. DIAGNOSTIC STUDIES/LAB DATA: Sodium 135, potassium 4.2, chloride 99, carbon dioxide 29, anion gap 7, BUN 21, creatinine 0.85, glucose 118, lactic acid 1.2, calcium 8.4. Total bilirubin 0.40, AST 19, ALT 12, alkaline phosphatase 89. Troponin 0.00. BNP 181. Total protein 7.0, albumin 3.6. WBCs 5.9, RBC 4.26, HGB 13.1, HCT 39, MCV 92, MCH 31, MCHC 34, RDW 15, platelet count 209. Chest x-ray, impression: "Cardiomegaly with interstitial edema consistent with CHF." EKG: Sinus rhythm with a rate of 79 with a right bundle branch block. In comparison to prior EKG, appears to be no acute changes noted. ASSESSMENT AND PLAN: Mr. Muniz is an 83-year-old male with a past medical history of seizure disorder, dementia, hypertension, benign prostatic hypertrophy, frequent falls, vitamin B12 deficiency and 3 hospitalizations since early February, who presented from [facility] where he is undergoing subacute rehab for influenza A, shortness of breath, and increase in falls. 1. Acute respiratory failure. The patient has been started on Vapotherm in the emergency department. He is stable on Vapotherm and will be admitted to the ICU. We will continue him at 40 L 50% and we will titrate as tolerated. The emergency department physician also gave him 80 mg of IV Lasix and which he appears to be diuresing quite a lot into his Olsen catheter. We will maintain strict I's and O's. He was never given the nitro pasted ordered. He underwent a CT of his chest, abdomen, pelvis with contrast as well as CT cervical spine without and a CT brain without, which are pending at the time of dictation. Blood cultures were sent. We will continue ceftriaxone and azithromycin. Continue Solu-Medrol 40 mg q.8 hours IV. DuoNebs q. hour while awake. We will wait and review the chest CT to determine if the patient will require further diuresing, but he does not appear top be fluid overloaded. Sputum culture will be obtained. Send urine for Legionella and S pneumoniae. 2. Multiple falls. This could be secondary to his acute illness; however, we do know at his baseline, the patient falls frequently and per the nephew in noncompliant with walker recommendations in the [facility]ci. The patient should continue to work with Physical Therapy. He moves all extremities on exam. He is noted to have a large left hip bruise. 3. Hypertension. We will hold atenolol due to softer blood pressures. This should be monitored and restarted when appropriate. 4. Seizure disorder. Continue Tegretol 200 mg p.o. t.i.d. 5. Irritable bowel syndrome with diarrhea. This was discussed in the previous hospitalization that the patient should be evaluated by program manager environmental planning and have a colonoscopy. He did do better on a lactose-free diet. Per the nephew, he even did better having a low-sugar diet, which seems to increase his diarrhea. He has had some success recently with Bentyl p.r.n. and I will continue this at this time. 6. DVT prophylaxis: Heparin subcu. 7. Code status: DNR/DNI. Healthcare proxy is Chuy Soto. His number is [phone]. TIME SPENT: Approximately 60 minutes was spent on this admission. KATIE GREEN, WATER CHASER [id number]/[facility] #: [id number] FAIZA
[2018-07-20] MEDS: Azithromycin IV(*) 500 MG in NS 0.9% 250 ML* 250 ML IVPB SCH (20:05)
[2018-07-20] MEDS: Oseltamivir CAP* 30 MG CAP PO SCH (20:05)
[2018-07-20] MEDS: guaiFENesin ER TAB 600 MG PO SCH (20:05)
[2018-07-20] MEDS: carBAMazepine TAB(*) 200 MG PO SCH (20:06)
[2018-07-20] MEDS: methylPREDNISolone SOD 40 MG* 1 ML VIAL IV SCH (23:10)
--- NOTE | 2018-07-20 23:33 | PN ---
Hospitalist Progress Note Date of Service: 07/20/18 CT Chest/Abdomen/Pelvis: showing small Right Lower infiltrate - the patient will continue on antibiotics. Also showing a "severe Burst Fracture of the T12 Vertebral body, unchanged from previous". It appears he had similar findings on the 06/06/18 CT. I discussed this with Neurosurgeon Dr. Glover - who believes this to be old. The patient was re-evaluated and he moves all extremities, full ROM, strength is 5/5 throughout. Denies any tenderness along spine or back pain. He has sensation to lower extremities. he has a renae catheter in place therefore can not assess incontinence. I have low suspicion of acute fracture. If the patient develops back pain he should undergo an MRI.
[2018-07-21] MEDS: Albuterol/Ipratropium NEB.SOL* Albuterol 2.5 MG/Ipratropium 0.5 MG 3 ML INH SCH ×5 (04:12→23:51)
[2018-07-21] MEDS: methylPREDNISolone SOD 40 MG* 1 ML VIAL IV SCH (06:16)
[2018-07-21 06:39] LABS: ABS Basophils 0 10^3/ul (0-0.2); ABS Eosinophils 0 10^3/ul (0-0.6); ABS Lymphocytes 0.7 10^3/ul (1.0-4.8); ABS Monocytes 0.7 10^3/ul (0-0.8); ABS Neutrophils 4.9 10^3/ul (1.5-7.7); ABS Nucleated RBC 0 10^3/ul; Eosinophil % 0 %; Hematocrit 37 % (36-46); Hemoglobin 12.7 g/dL (14.0-18.0); Lymphocyte % 10.6 %; Mean Corpuscular HGB Conc 34 g/dL (31-36); Mean Corpuscular Hemoglobin 31 pg (27-31); Mean Corpuscular Volume 91 fL (80-94); Mean Platelet Volume 6.9 fL (7.4-10.4); Nucleated Red Blood Cells % 0; Platelet Count 215 10^3/uL (150-450); Red Blood Count 4.12 10^6 /uL (4.18-5.48); Red Cell Distribution Width 14 % (10.5-15); White Blood Count 6.3 10^3/uL (3.5-10.8)
[2018-07-21 06:55] LABS: BUN/Creatinine Ratio 33.9 (8-20); Calcium 8.4 mg/dL (8.6-10.3); EGFR African American 158.4 (>60); EGFR Non-African American 130.9 (>60); Potassium 3.8 mmol/L (3.5-5.0)
--- NOTE | 2018-07-21 07:57 | PN ---
Subjective Date of Service: 07/21/18 Interval History: His main concern seems to be "When do we eat?". He denies pain, SOB. Objective Active Medications: Acetaminophen (Tylenol Tab*) 650 mg PO Q6H PRN PRN Reason: PAIN Albuterol/Ipratropium (Duoneb (Albuterol 2.5 Mg/Ipratropium 0.5 Mg)) 1 neb INH [id number] AWAKE [facility] Last Admin: 07/21/18 04:12 Dose: Not Given Carbamazepine (Tegretol Tab(*)) 200 mg PO TID [facility] Last Admin: 07/20/18 20:06 Dose: 200 mg Furosemide (Lasix Tab*) 20 mg PO DAILY [facility] Guaifenesin (Mucinex*) 600 mg PO BID [facility] Last Admin: 07/20/18 20:05 Dose: 600 mg Ceftriaxone Sodium 1 gm/ (Sodium Chloride) 50 mls @ 200 mls/hr IVPB Q24H [facility] Last Admin: 07/20/18 18:59 Dose: 200 mls/hr Azithromycin 500 mg/ Sodium (Chloride) 250 mls @ 250 mls/hr IVPB Q24H [facility] Last Admin: 07/20/18 20:05 Dose: 250 mls/hr Multivitamins/Minerals (Theragran/Minerals Tab*) 1 tab PO DAILY [facility] Oseltamivir Phosphate (Tamiflu Cap*) 30 mg PO BID [facility] Last Admin: 07/20/18 20:05 Dose: 30 mg Prednisone (Deltasone Tab*) 40 mg PO DAILY [facility] Tamsulosin HCl (Flomax Cap*) 0.4 mg PO DAILY [facility] Vital Signs - 8 hr 07/21/18 07/21/18 07/21/18 00:00 00:01 00:04 Temperature 99.1 F 99.1 F 99.1 F Pulse Rate 70 70 77 Respiratory 23 20 36 Rate Blood Pressure 103/62 (mmHg) O2 Sat by Pulse 97 97 96 Oximetry 07/21/18 07/21/18 07/21/18 00:30 01:00 01:01 Temperature 99.0 F 99.0 F Pulse Rate 66 60 Respiratory 32 29 28 Rate Blood Pressure 87/48 100/47 (mmHg) O2 Sat by Pulse 97 95 Oximetry 07/21/18 07/21/18 07/21/18 01:30 01:32 02:00 Temperature 98.8 F 98.8 F 98.8 F Pulse Rate 60 60 59 Respiratory 18 27 31 Rate Blood Pressure 76/41 77/39 86/44 (mmHg) O2 Sat by Pulse 95 95 96 Oximetry 07/21/18 07/21/18 07/21/18 02:01 02:30 03:00 Temperature 98.8 F 98.6 F Pulse Rate 59 61 Respiratory 30 35 36 Rate Blood Pressure 82/58 (mmHg) O2 Sat by Pulse 96 97 Oximetry 07/21/18 07/21/18 07/21/18 03:01 03:30 03:35 Temperature 98.8 F 98.4 F Pulse Rate 67 85 Respiratory 36 28 27 Rate Blood Pressure 118/67 93/54 (mmHg) O2 Sat by Pulse 92 95 Oximetry 07/21/18 07/21/18 07/21/18 04:00 04:01 04:30 Temperature 98.4 F 98.4 F 98.4 F Pulse Rate 64 83 99 Respiratory 32 29 31 Rate Blood Pressure 102/61 88/63 (mmHg) O2 Sat by Pulse 96 96 95 Oximetry 07/21/18 07/21/18 07/21/18 05:00 05:30 06:00 Temperature 98.2 F 98.4 F 98.4 F Pulse Rate 97 90 65 Respiratory 35 30 28 Rate Blood Pressure 120/65 113/72 128/77 (mmHg) O2 Sat by Pulse 96 98 98 Oximetry 07/21/18 07/21/18 07/21/18 06:30 07:00 07:31 Temperature 98.4 F 98.6 F 98.6 F Pulse Rate 61 63 60 Respiratory 39 24 30 Rate Blood Pressure 104/60 119/60 84/48 (mmHg) O2 Sat by Pulse 97 97 97 Oximetry Oxygen Devices in Use Now: High Flow Heated Nasal Cannula Appearance: Alert, supine in ICU bed. In good spirits, looks comfortable. Eyes: No Scleral Icterus Neck: NL Appearance and Movements; NL JVP, No Thyroid Enlargement, Masses Respiratory: Symmetrical Chest Expansion and Respiratory Effort, Clear to Auscultation, Clear to Percussion Cardiovascular: NL Sounds; No Murmurs; No JVD, RRR, No Edema, - Extremities: No Edema, No Clubbing, Cyanosis, - Skin: No Rash or Ulcers, No Nodules or Sclerosis, - Neurological: NL Sensation - Gave his full name and age, gave November as present month. Poor short term memory. No tremor. Result Diagrams: 07/21/18 06:25 07/21/18 06:25 Microbiology and Other Data: Microbiology 07/20/18 15:32 Aerobic Blood Culture - Preliminary Blood Venous 07/20/18 15:49 Anaerobic Blood Culture - Preliminary Blood Venous Blood MRSA/MSSA (PCR) - Final Mrsa Negative S.aureus Negative 07/20/18 16:55 Streptococcus pneumoniae Ag Screen - Final Urine Negative S. pneumo Antigen 07/20/18 16:55 Legionella Urinary Antigen - Final Urine Negative Legionella Antigen 07/20/18 17:47 Nasal Screen MRSA (PCR) - Final Nasal Mrsa Not Detected Assess/Plan/Problems-Billing Assessment: - Patient Problems (1) Influenza A Current Visit: Yes Status: Acute Code(s): J10.1 - FLU DUE TO OTH IDENT INFLUENZA VIRUS W OTH RESP MANIFEST SNOMED Code(s): 246191787 Comment: Continue oseltamivir, ceftr, azith. (2) Diarrhea Current Visit: No Status: Acute Code(s): R19.7 - DIARRHEA, UNSPECIFIED SNOMED Code(s): 20917112 Comment: Low lactose diet ordered, has helped in the past. (3) Seizure disorder Current Visit: No Status: Acute Code(s): G40.909 - EPILEPSY, UNSP, NOT INTRACTABLE, WITHOUT STATUS EPILEPTICUS SNOMED Code(s): 110790134 Comment: Continue carbamazepine. (4) Pulmonary edema Current Visit: No Status: Acute Code(s): J81.1 - CHRONIC PULMONARY EDEMA SNOMED Code(s): 53546207 Comment: -Echo results 05/2018: EF 65-70%, LV chamber size decreased, mild LV hypertrophy , normal LV function, left atrium mildly dilated, RV chamber size and systolic function are wnls, no significant valvular abnormalities Probable acute on chronic diastolic CHF. Note elevated BNP. Daily po furosemide started 07/21. (5) Acute respiratory failure Current Visit: Yes Status: Acute Code(s): J96.00 - ACUTE RESPIRATORY FAILURE , UNSP W HYPOXIA OR HYPERCAPNIA SNOMED Code(s): 22686207 Comment: Start weaning off Vapotherm 07/21.
[2018-07-21] MEDS: Tamsulosin CAP* 0.4 MG PO SCH (08:51)
[2018-07-21] MEDS: Oseltamivir CAP* 30 MG CAP PO SCH ×2 (08:51→21:17)
[2018-07-21] MEDS: guaiFENesin ER TAB 600 MG PO SCH ×2 (08:51→21:17)
[2018-07-21] MEDS: Furosemide TAB* 20 MG PO SCH (08:51)
[2018-07-21] MEDS: Multivitamins/Minerals TAB PO SCH (08:51)
[2018-07-21] MEDS: carBAMazepine TAB(*) 200 MG PO SCH ×3 (08:51→21:17)
[2018-07-21] MEDS ORDERED: Atenolol TAB* 25 MG PO SCH (09:00)
[2018-07-21] MEDS ORDERED: predniSONE TAB* 20 MG PO SCH (09:00)
[2018-07-21] MEDS: cefTRIAXone(*) 1 GM in NS 0.9% 50 ML* 50 ML IVPB SCH (20:32)
[2018-07-21] MEDS: Azithromycin IV(*) 500 MG in NS 0.9% 250 ML* 250 ML IVPB SCH (21:18)
[2018-07-21] MEDS ORDERED: Furosemide IV* 10 MG/ML VIAL (40 MG) ONE (23:39)
[2018-07-21] MEDS ORDERED: Furosemide IV* 10 MG/ML VIAL (40 MG) IV ONE (23:42)
--- NOTE | 2018-07-21 23:42 | PN ---
Progress Note - Progress Note Date of Service: 07/21/18 Note: Pt was noted to be more SOB. On exam :rales b/l, but no increased WOB. 02 sat 94 % on 6L02 Nc. will tx with Lasix 40 mg IV x1
[2018-07-22 06:14] LABS: Calcium 8.7 mg/dL (8.6-10.3); EGFR African American 121.9 (>60); EGFR Non-African American 100.8 (>60); Potassium 3.6 mmol/L (3.5-5.0)
--- NOTE | 2018-07-22 07:56 | PN ---
Subjective Date of Service: 07/22/18 Interval History: Only c/o delay in getting breakfast. Objective Active Medications: Acetaminophen (Tylenol Tab*) 650 mg PO Q6H PRN PRN Reason: PAIN Albuterol/Ipratropium (Duoneb (Albuterol 2.5 Mg/Ipratropium 0.5 Mg)) 1 neb INH [id number] AWAKE [facility] Last Admin: 07/21/18 23:51 Dose: 1 neb Carbamazepine (Tegretol Tab(*)) 200 mg PO TID [facility] Last Admin: 07/21/18 21:17 Dose: 200 mg Furosemide (Lasix Tab*) 20 mg PO DAILY [facility] Last Admin: 07/21/18 08:51 Dose: 20 mg Guaifenesin (Mucinex*) 600 mg PO BID [facility] Last Admin: 07/21/18 21:17 Dose: 600 mg Azithromycin 500 mg/ Sodium (Chloride) 250 mls @ 250 mls/hr IVPB Q24H [facility] Last Admin: 07/21/18 21:18 Dose: 250 mls/hr Ceftriaxone Sodium 1 gm/ (Sodium Chloride) 50 mls @ 200 mls/hr IVPB Q24HR@1930 [facility] Multivitamins/Minerals (Theragran/Minerals Tab*) 1 tab PO DAILY [facility] Last Admin: 07/21/18 08:51 Dose: 1 tab Oseltamivir Phosphate (Tamiflu Cap*) 30 mg PO BID [facility] Last Admin: 07/21/18 21:17 Dose: 30 mg Tamsulosin HCl (Flomax Cap*) 0.4 mg PO DAILY [facility] Last Admin: 07/21/18 08:51 Dose: 0.4 mg Vital Signs - 8 hr 07/21/18 07/22/18 07/22/18 23:52 00:17 00:58 Temperature Pulse Rate 72 89 Respiratory 44 46 Rate Blood Pressure 100/80 (mmHg) O2 Sat by Pulse 96 92 Oximetry 07/22/18 07/22/18 07/22/18 01:00 01:12 01:15 Temperature Pulse Rate 88 85 88 Respiratory 38 47 Rate Blood Pressure 130/90 126/85 (mmHg) O2 Sat by Pulse 100 97 98 Oximetry 07/22/18 07/22/18 07/22/18 01:17 01:30 01:45 Temperature 98.4 F Pulse Rate 86 95 82 Respiratory 46 29 46 Rate Blood Pressure 126/85 132/119 133/74 (mmHg) O2 Sat by Pulse 96 95 97 Oximetry 07/22/18 07/22/18 07/22/18 02:00 02:01 02:17 Temperature Pulse Rate 71 83 110 Respiratory 40 32 54 Rate Blood Pressure 128/63 119/91 (mmHg) O2 Sat by Pulse 96 95 98 Oximetry 07/22/18 07/22/18 07/22/18 02:30 02:45 03:00 Temperature Pulse Rate 73 69 Respiratory 27 29 31 Rate Blood Pressure 86/55 90/46 (mmHg) O2 Sat by Pulse 93 95 Oximetry 07/22/18 07/22/18 07/22/18 03:01 03:16 03:40 Temperature 97.9 F Pulse Rate 85 93 Respiratory 28 39 Rate Blood Pressure 99/65 117/85 (mmHg) O2 Sat by Pulse 96 93 Oximetry 07/22/18 07/22/18 07/22/18 03:46 03:58 04:00 Temperature Pulse Rate 118 88 Respiratory 43 44 48 Rate Blood Pressure 130/96 99/92 (mmHg) O2 Sat by Pulse 97 96 Oximetry 07/22/18 07/22/18 07/22/18 04:01 04:15 04:28 Temperature Pulse Rate 86 83 86 Respiratory 41 51 38 Rate Blood Pressure 120/81 (mmHg) O2 Sat by Pulse 95 97 97 Oximetry 07/22/18 07/22/18 07/22/18 04:32 04:45 05:00 Temperature Pulse Rate 109 91 85 Respiratory 30 31 Rate Blood Pressure 140/102 123/85 133/81 (mmHg) O2 Sat by Pulse 90 97 96 Oximetry 07/22/18 07/22/18 07/22/18 05:01 05:15 06:00 Temperature Pulse Rate 80 75 84 Respiratory 43 51 43 Rate Blood Pressure 122/75 125/91 (mmHg) O2 Sat by Pulse 96 96 97 Oximetry 07/22/18 07/22/18 07/22/18 06:01 07:00 07:01 Temperature Pulse Rate 81 82 82 Respiratory 29 46 31 Rate Blood Pressure 128/99 (mmHg) O2 Sat by Pulse 98 97 98 Oximetry Oxygen Devices in Use Now: BiPAP Appearance: Alert, on his side in ICU bed. Tachypneic. Irritable. Eyes: No Scleral Icterus Respiratory: Symmetrical Chest Expansion and Respiratory Effort, Clear to Percussion, - - diffuse mod rhonchi BL Extremities: No Edema, No Clubbing, Cyanosis, - Skin: No Rash or Ulcers, No Nodules or Sclerosis, - Neurological: NL Sensation - Gave his age as 47. No tremor. Irritable. Result Diagrams: 07/21/18 06:25 07/22/18 05:34 Microbiology and Other Data: Microbiology 07/20/18 15:32 Aerobic Blood Culture - Preliminary Blood Venous 07/20/18 15:49 Anaerobic Blood Culture - Preliminary Blood Venous Blood MRSA/MSSA (PCR) - Final Mrsa Negative S.aureus Negative 07/20/18 16:55 Streptococcus pneumoniae Ag Screen - Final Urine Negative S. pneumo Antigen 07/20/18 16:55 Legionella Urinary Antigen - Final Urine Negative Legionella Antigen 07/20/18 17:47 Nasal Screen MRSA (PCR) - Final Nasal Mrsa Not Detected Assess/Plan/Problems-Billing Assessment: - Patient Problems (1) Influenza A Current Visit: Yes Status: Acute Code(s): J10.1 - FLU DUE TO OTH IDENT INFLUENZA VIRUS W OTH RESP MANIFEST SNOMED Code(s): 438659892 Comment: Continue oseltamivir, ceftr, azith. (2) Diarrhea Current Visit: No Status: Acute Code(s): R19.7 - DIARRHEA, UNSPECIFIED SNOMED Code(s): 84573927 Comment: Low lactose diet ordered, has helped in the past. (3) Seizure disorder Current Visit: No Status: Acute Code(s): G40.909 - EPILEPSY, UNSP, NOT INTRACTABLE, WITHOUT STATUS EPILEPTICUS SNOMED Code(s): 801719727 Comment: Continue carbamazepine. (4) Pulmonary edema Current Visit: No Status: Acute Code(s): J81.1 - CHRONIC PULMONARY EDEMA SNOMED Code(s): 42745255 Comment: -Echo results 05/2018: EF 65-70%, LV chamber size decreased, mild LV hypertrophy , normal LV function, left atrium mildly dilated, RV chamber size and systolic function are wnls, no significant valvular abnormalities Probable acute on chronic diastolic CHF. Note elevated BNP. Daily po furosemide started 07/21. (5) Acute respiratory failure Current Visit: Yes Status: Acute Code(s): J96.00 - ACUTE RESPIRATORY FAILURE , UNSP W HYPOXIA OR HYPERCAPNIA SNOMED Code(s): 99653561 Comment: Put on BIPAP 11PM 07/21. Overnight oximetry 09/21 - 07/23 on NC 6 L/min. Methyllprdnisolone 60 mg q 12 hr start 4/7 AM.
[2018-07-22] MEDS: Albuterol/Ipratropium NEB.SOL* Albuterol 2.5 MG/Ipratropium 0.5 MG 3 ML INH SCH ×4 (08:53→13:14)
[2018-07-22] MEDS: Oseltamivir CAP* 30 MG CAP PO SCH ×2 (09:53→20:14)
[2018-07-22] MEDS: methylPREDNISolone SOD 40 MG* 1 ML VIAL IV SCH ×2 (09:54→20:12)
[2018-07-22] MEDS: carBAMazepine TAB(*) 200 MG PO SCH ×3 (09:54→20:14)
[2018-07-22] MEDS: Tamsulosin CAP* 0.4 MG PO SCH (09:54)
[2018-07-22] MEDS: Multivitamins/Minerals TAB PO SCH (09:54)
[2018-07-22] MEDS: guaiFENesin ER TAB 600 MG PO SCH ×2 (09:54→20:14)
[2018-07-22] MEDS: Furosemide TAB* 20 MG PO SCH (09:54)
[2018-07-22] MEDS ORDERED: Albuterol 2.5 MG/3 ML NEB.SOL* (0.083%) INH PRN (11:02)
[2018-07-22] MEDS: cefTRIAXone(*) 1 GM in NS 0.9% 50 ML* 50 ML IVPB SCH (19:44)
[2018-07-22] MEDS: Azithromycin IV(*) 500 MG in NS 0.9% 250 ML* 250 ML IVPB SCH (20:12)
[2018-07-23] MEDS: methylPREDNISolone SOD 40 MG* 1 ML VIAL IV SCH ×2 (08:12→21:10)
--- NOTE | 2018-07-23 08:35 | PN ---
Subjective Date of Service: 07/23/18 Interval History: "When can I eat?" No other c/o. Objective Active Medications: Acetaminophen (Tylenol Tab*) 650 mg PO Q6H PRN PRN Reason: PAIN Albuterol (Ventolin 2.5 Mg/3 Ml Neb.Ann*) 2.5 mg INH RT.[id number] AWAKE PRN PRN Reason: SOB/WHEEZING Albuterol/Ipratropium (Duoneb (Albuterol 2.5 Mg/Ipratropium 0.5 Mg)) 1 neb INH [id number] AWAKE PRN PRN Reason: SOB/WHEEZING Carbamazepine (Tegretol Tab(*)) 200 mg PO TID [facility] Last Admin: 07/22/18 20:14 Dose: 200 mg Furosemide (Lasix Tab*) 20 mg PO DAILY [facility] Last Admin: 07/22/18 09:54 Dose: 20 mg Guaifenesin (Mucinex*) 1,200 mg PO BID [facility] Last Admin: 07/22/18 20:14 Dose: 1,200 mg Azithromycin 500 mg/ Sodium (Chloride) 250 mls @ 250 mls/hr IVPB Q24H [facility] Last Admin: 07/22/18 20:12 Dose: 250 mls/hr Ceftriaxone Sodium 1 gm/ (Sodium Chloride) 50 mls @ 200 mls/hr IVPB Q24HR@1930 [facility] Last Admin: 07/22/18 19:44 Dose: 200 mls/hr Methylprednisolone Sodium Succinate (Solu-Medrol 40 Mg) 60 mg IV Q12H [facility] Last Admin: 07/23/18 08:12 Dose: 60 mg Multivitamins/Minerals (Theragran/Minerals Tab*) 1 tab PO DAILY [facility] Last Admin: 07/22/18 09:54 Dose: 1 tab Oseltamivir Phosphate (Tamiflu Cap*) 30 mg PO BID [facility] Stop: 07/25/18 09:01 Last Admin: 07/22/18 20:14 Dose: 30 mg Tamsulosin HCl (Flomax Cap*) 0.4 mg PO DAILY [facility] Last Admin: 07/22/18 09:54 Dose: 0.4 mg Vital Signs - 8 hr 07/23/18 07/23/18 07/23/18 01:00 01:01 02:00 Temperature Pulse Rate 72 73 66 Respiratory 25 23 25 Rate Blood Pressure 92/53 111/64 (mmHg) O2 Sat by Pulse 93 93 98 Oximetry 07/23/18 07/23/18 07/23/18 02:01 03:00 03:01 Temperature Pulse Rate 66 94 98 Respiratory 27 26 30 Rate Blood Pressure 115/73 (mmHg) O2 Sat by Pulse 97 99 98 Oximetry 07/23/18 07/23/18 07/23/18 03:54 04:00 04:01 Temperature 97.3 F Pulse Rate 76 69 Respiratory 30 25 Rate Blood Pressure 91/57 (mmHg) O2 Sat by Pulse 94 92 Oximetry 07/23/18 07/23/18 07/23/18 05:00 05:01 06:00 Temperature Pulse Rate 94 96 71 Respiratory 26 19 25 Rate Blood Pressure 102/65 110/67 (mmHg) O2 Sat by Pulse 96 94 95 Oximetry 07/23/18 07/23/18 07/23/18 07:00 07:46 08:00 Temperature 97.5 F Pulse Rate 87 81 Respiratory 21 32 Rate Blood Pressure 123/73 140/90 (mmHg) O2 Sat by Pulse 100 97 Oximetry Oxygen Devices in Use Now: High Flow Heated Nasal Cannula Appearance: Alert, supine in ICU bed. In fair spirits. Looks comfortable. Eyes: No Scleral Icterus Respiratory: Symmetrical Chest Expansion and Respiratory Effort, Clear to Percussion, - - mild rhnochi BL Cardiovascular: NL Sounds; No Murmurs; No JVD, RRR, No Edema, - Extremities: No Edema, No Clubbing, Cyanosis, - Skin: No Rash or Ulcers, No Nodules or Sclerosis, - Neurological: NL Sensation - diminished memory, - - Gave his age as 47, does not know present month. Can state his full name and town of residence. Diminished hearing. No tremor. Result Diagrams: 07/21/18 06:25 07/22/18 05:34 Microbiology and Other Data: Microbiology 07/20/18 15:32 Aerobic Blood Culture - Preliminary Blood Venous 07/20/18 15:49 Anaerobic Blood Culture - Preliminary Blood Venous Blood MRSA/MSSA (PCR) - Final Mrsa Negative S.aureus Negative 07/20/18 16:55 Streptococcus pneumoniae Ag Screen - Final Urine Negative S. pneumo Antigen 07/20/18 16:55 Legionella Urinary Antigen - Final Urine Negative Legionella Antigen 07/20/18 17:47 Nasal Screen MRSA (PCR) - Final Nasal Mrsa Not Detected Assess/Plan/Problems-Billing Assessment: - Patient Problems (1) Influenza A Current Visit: Yes Status: Acute Code(s): J10.1 - FLU DUE TO OTH IDENT INFLUENZA VIRUS W OTH RESP MANIFEST SNOMED Code(s): 565758326 Comment: Continue oseltamivir, ceftr, azith. (2) Diarrhea Current Visit: No Status: Acute Code(s): R19.7 - DIARRHEA, UNSPECIFIED SNOMED Code(s): 22961985 Comment: Low lactose diet ordered, has helped in the past. (3) Seizure disorder Current Visit: No Status: Acute Code(s): G40.909 - EPILEPSY, UNSP, NOT INTRACTABLE, WITHOUT STATUS EPILEPTICUS SNOMED Code(s): 755367588 Comment: Continue carbamazepine. (4) Pulmonary edema Current Visit: No Status: Acute Code(s): J81.1 - CHRONIC PULMONARY EDEMA SNOMED Code(s): 89486919 Comment: -Echo results 05/2018: EF 65-70%, LV chamber size decreased, mild LV hypertrophy , normal LV function, left atrium mildly dilated, RV chamber size and systolic function are wnls, no significant valvular abnormalities Probable acute on chronic diastolic CHF. Note elevated BNP. Daily po furosemide started 07/21. (5) Acute respiratory failure Current Visit: Yes Status: Acute Code(s): J96.00 - ACUTE RESPIRATORY FAILURE , UNSP W HYPOXIA OR HYPERCAPNIA SNOMED Code(s): 80502428 Comment: Put on BIPAP 11PM 07/21. Overnight oximetry 09/21 - 07/23 on NC 6 L/min. Continue methylprednisolone 60 mg q 12 hr start prednisone taper 07/24.
[2018-07-23] MEDS: Multivitamins/Minerals TAB PO SCH (09:13)
[2018-07-23] MEDS: Furosemide TAB* 20 MG PO SCH (09:13)
[2018-07-23] MEDS: Tamsulosin CAP* 0.4 MG PO SCH (09:13)
[2018-07-23] MEDS: Oseltamivir CAP* 30 MG CAP PO SCH ×2 (09:13→21:13)
[2018-07-23] MEDS: carBAMazepine TAB(*) 200 MG PO SCH ×3 (09:13→21:13)
[2018-07-23] MEDS: guaiFENesin ER TAB 600 MG PO SCH ×2 (09:13→21:13)
[2018-07-23] MEDS: cefTRIAXone(*) 1 GM in NS 0.9% 50 ML* 50 ML IVPB SCH (19:52)
[2018-07-23] MEDS: Azithromycin IV(*) 500 MG in NS 0.9% 250 ML* 250 ML IVPB SCH (21:09)
[2018-07-24] MEDS: Furosemide TAB* 20 MG PO SCH (09:39)
[2018-07-24] MEDS: predniSONE TAB* 20 MG PO SCH (09:39)
[2018-07-24] MEDS: Tamsulosin CAP* 0.4 MG PO SCH (09:39)
[2018-07-24] MEDS: guaiFENesin ER TAB 600 MG PO SCH ×2 (09:39→20:43)
[2018-07-24] MEDS: Oseltamivir CAP* 30 MG CAP PO SCH ×2 (09:39→20:43)
[2018-07-24] MEDS: Multivitamins/Minerals TAB PO SCH (09:39)
[2018-07-24] MEDS: carBAMazepine TAB(*) 200 MG PO SCH ×3 (09:39→20:43)
--- NOTE | 2018-07-24 15:05 | PN ---
Subjective Date of Service: 07/24/18 Interval History: Patient seen very hard of hearing. Comfortable, resting. on Nasal canula. no acute events. Past Medical History: Unchanged from Admission Objective Active Medications: Acetaminophen (Tylenol Tab*) 650 mg PO Q6H PRN PRN Reason: PAIN Albuterol (Ventolin 2.5 Mg/3 Ml Neb.Ann*) 2.5 mg INH RT.[id number] AWAKE PRN PRN Reason: SOB/WHEEZING Albuterol/Ipratropium (Duoneb (Albuterol 2.5 Mg/Ipratropium 0.5 Mg)) 1 neb INH RT.[id number] AWAKE PRN PRN Reason: SOB/WHEEZING Carbamazepine (Tegretol Tab(*)) 200 mg PO TID [facility] Last Admin: 07/24/18 14:06 Dose: 200 mg Furosemide (Lasix Tab*) 20 mg PO DAILY [facility] Last Admin: 07/24/18 09:39 Dose: 20 mg Guaifenesin (Mucinex*) 1,200 mg PO BID [facility] Last Admin: 07/24/18 09:39 Dose: 1,200 mg Azithromycin 500 mg/ Sodium (Chloride) 250 mls @ 250 mls/hr IVPB Q24H [facility] Stop: 07/24/18 23:59 Last Admin: 07/23/18 21:09 Dose: 250 mls/hr Ceftriaxone Sodium 1 gm/ (Sodium Chloride) 50 mls @ 200 mls/hr IVPB Q24HR@1930 [facility] Last Admin: 07/23/18 19:52 Dose: 200 mls/hr Multivitamins/Minerals (Theragran/Minerals Tab*) 1 tab PO DAILY [facility] Last Admin: 07/24/18 09:39 Dose: 1 tab Oseltamivir Phosphate (Tamiflu Cap*) 30 mg PO BID [facility] Stop: 07/25/18 09:01 Last Admin: 07/24/18 09:39 Dose: 30 mg Prednisone (Deltasone Tab*) 60 mg PO DAILY [facility] Last Admin: 07/24/18 09:39 Dose: 60 mg Tamsulosin HCl (Flomax Cap*) 0.4 mg PO DAILY [facility] Last Admin: 07/24/18 09:39 Dose: 0.4 mg Vital Signs - 8 hr 07/24/18 07/24/18 07/24/18 07:45 07:55 09:51 Temperature 97.6 F 97.6 F Pulse Rate 71 71 Respiratory 24 24 18 Rate Blood Pressure 144/88 144/88 (mmHg) O2 Sat by Pulse 98 98 Oximetry 07/24/18 07/24/18 11:57 12:47 Temperature 98.0 F 98 F Pulse Rate 82 82 Respiratory 24 24 Rate Blood Pressure 129/70 129/70 (mmHg) O2 Sat by Pulse 97 97 Oximetry Oxygen Devices in Use Now: Nasal Cannula Appearance: Awake, alert hard of hearing. nasal canula in place Ears/Nose/Mouth/Throat: NL Teeth, Lips, Gums, Clear Oropharnyx Neck: NL Appearance and Movements; NL JVP, Trachea Midline Respiratory: - - expiratory wheezing, scaterred rhonchi Cardiovascular: NL Sounds; No Murmurs; No JVD, RRR Abdominal: NL Sounds; No Tenderness; No Distention Extremities: No Edema Result Diagrams: 07/21/18 06:25 07/22/18 05:34 Microbiology and Other Data: Microbiology 07/20/18 15:32 Aerobic Blood Culture - Preliminary Blood Venous 07/20/18 15:49 Anaerobic Blood Culture - Preliminary Blood Venous Blood MRSA/MSSA (PCR) - Final Mrsa Negative S.aureus Negative 07/20/18 16:55 Streptococcus pneumoniae Ag Screen - Final Urine Negative S. pneumo Antigen 07/20/18 16:55 Legionella Urinary Antigen - Final Urine Negative Legionella Antigen 07/20/18 17:47 Nasal Screen MRSA (PCR) - Final Nasal Mrsa Not Detected Assess/Plan/Problems-Billing Assessment: 83 year old male admitted for URI secondary to Influenza A+ and superimposed with possible bacterial pneumoniae - Patient Problems (1) Influenza A Current Visit: Yes Status: Acute Code(s): J10.1 - FLU DUE TO OTH IDENT INFLUENZA VIRUS W OTH RESP MANIFEST SNOMED Code(s): 034382602 Comment: - Currently on oseltamivir day# 4/5 - Continue Duoneb and albuterol, PRN, Mucinex 1200 mg bid - I did order CXR 2 views in am to rule out superimposed pneumoniae, - I will maintain him on ceftriaxone and azithromycin day # 4/5 (2) HTN (hypertension) Current Visit: No Status: Acute Code(s): I10 - ESSENTIAL (PRIMARY) HYPERTENSION SNOMED Code(s): 28901806 Comment: -Atenolol on hold for now (3) Seizure disorder Current Visit: No Status: Acute Code(s): G40.909 - EPILEPSY, UNSP, NOT INTRACTABLE, WITHOUT STATUS EPILEPTICUS SNOMED Code(s): 618001978 Comment: - Continue carbamazepine 200 mg tid. (4) Dementia Current Visit: Yes Status: Acute Code(s): F03.90 - UNSPECIFIED DEMENTIA WITHOUT BEHAVIORAL DISTURBANCE SNOMED Code(s): 31536637 (5) DVT prophylaxis Current Visit: No Status: Acute Code(s): PTG5858 - SNOMED Code(s): 055720925 Comment: -Continue Heparin SQ
[2018-07-24] MEDS: cefTRIAXone(*) 1 GM in NS 0.9% 50 ML* 50 ML IVPB SCH (19:20)
[2018-07-24] MEDS: Azithromycin IV(*) 500 MG in NS 0.9% 250 ML* 250 ML IVPB SCH (20:42)
[2018-07-25] MEDS: Albuterol/Ipratropium NEB.SOL* Albuterol 2.5 MG/Ipratropium 0.5 MG 3 ML INH PRN (02:19)
[2018-07-25] MEDS ORDERED: Magnesium Sulfate 1 GM IV* 1 GM/100 ML BAG IV ONE (02:20)
[2018-07-25] MEDS ORDERED: methylPREDNISolone SOD 40 MG* 1 ML VIAL IV ONE (02:22)
[2018-07-25] MEDS ORDERED: EPINEPHrine,Rac 2.25% NEB.SOL* 0.5 ML INH PRN (02:23)
--- NOTE | 2018-07-25 03:36 | PN ---
Hospitalist Progress Note Cross coverage note: Called to bedside for wheezing and tachypnea above baseline - usually RR 20s but now noted to be in upper 30s. Wheezing audible - concern from upper airway. Of note, night hospitalist called for similar issue 3 nights ago and pt was started on IV steroids and transferred to ICU for BiPAP. Also had crackles at that time. Yesterday (07/24) was first day on oral prednisone. afeb, HR 70s, BP 121/67, RR low 20s, SaO2 98% on 3L chronically ill appearing, nontoxic, breathing more quickly than normal but appears calm and is without accessory muscle use audible wheeze throughout lungs and also without stethoscope, no crackles or rhonchi rrr no mgr Concern for return of airway reactivity in setting of viral and bacterial infection and steroid taper. Will give methylprednisolone x 1, magnesium, cont antibiotics. Low threshold to start BiPAP for increased work of breathing. RT recommending racemic epi nebs - ordered prn. Will continue to monitor. Pt is DNR/DNI
[2018-07-25 06:18] LABS: ABS Basophils 0 10^3/ul (0-0.2); ABS Eosinophils 0.1 10^3/ul (0-0.6); ABS Monocytes 0.5 10^3/ul (0-0.8); ABS Neutrophils 8.4 10^3/ul (1.5-7.7); ABS Nucleated RBC 0 10^3/ul; Eosinophil % 0.5 %; Hematocrit 39 % (36-46); Hemoglobin 13.5 g/dL (14.0-18.0); Lymphocyte % 9.8 %; Mean Corpuscular HGB Conc 34 g/dL (31-36); Mean Corpuscular Hemoglobin 31 pg (27-31); Mean Corpuscular Volume 90 fL (80-94); Mean Platelet Volume 6.9 fL (7.4-10.4); Nucleated Red Blood Cells % 0; Platelet Count 280 10^3/uL (150-450); Red Blood Count 4.36 10^6 /uL (4.18-5.48); Red Cell Distribution Width 14 % (10.5-15)
[2018-07-25 06:38] LABS: BUN/Creatinine Ratio 22.7 (8-20); Calcium 8.2 mg/dL (8.6-10.3); EGFR African American 139.1 (>60); Magnesium 2.3 mg/dL (1.9-2.7); Phosphorus 2.6 mg/dL (2.5-5.0); Potassium 4.1 mmol/L (3.5-5.0)
[2018-07-25] MEDS: Oseltamivir CAP* 30 MG CAP PO SCH (08:43)
[2018-07-25] MEDS: guaiFENesin ER TAB 600 MG PO SCH ×2 (08:43→20:14)
[2018-07-25] MEDS: Tamsulosin CAP* 0.4 MG PO SCH (08:44)
[2018-07-25] MEDS: predniSONE TAB* 20 MG PO SCH (08:44)
[2018-07-25] MEDS: carBAMazepine TAB(*) 200 MG PO SCH ×3 (08:44→20:14)
[2018-07-25] MEDS: Multivitamins/Minerals TAB PO SCH (08:44)
[2018-07-25] MEDS: Furosemide TAB* 20 MG PO SCH (08:44)
--- NOTE | 2018-07-25 15:29 | PN ---
Subjective Date of Service: 07/25/18 Interval History: Patient seen this morning. He appears stable as I saw him yesterday morning. He was asleep resting. Once awaken he devellop respiratory wheezing but not in distress. Event last night noted and appreciated. He was treated with IV solumedrol for his wheezing and brief wheezing. otherwise, he remains stable no acute events this morning. I reviewed his BC from admission and he did have positive BC for Streptococcus Infantarius and one set clostiridium perferinges. Repeat BC ordered. I will add flagyl empirically and consulted ID for evaluation in am. Also his prednisone changed to dexamethasone Past Medical History: Unchanged from Admission Objective Active Medications: Acetaminophen (Tylenol Tab*) 650 mg PO Q6H PRN PRN Reason: PAIN Albuterol (Ventolin 2.5 Mg/3 Ml Neb.Ann*) 2.5 mg INH RT.[id number] AWAKE PRN PRN Reason: SOB/WHEEZING Albuterol/Ipratropium (Duoneb (Albuterol 2.5 Mg/Ipratropium 0.5 Mg)) 1 neb INH RT.[id number] AWAKE PRN PRN Reason: SOB/WHEEZING Last Admin: 07/25/18 02:19 Dose: 1 neb Carbamazepine (Tegretol Tab(*)) 200 mg PO TID [facility] Last Admin: 07/25/18 08:44 Dose: 200 mg Dexamethasone (Decadron Tab*) 4 mg PO TID [facility] Epinephrine HCl (Epinephrine,Rac 2.25% Neb.Ann*) 0.25 ml INH Q2H PRN PRN Reason: wheeze Last Admin: 07/25/18 03:09 Dose: 2.25 % Furosemide (Lasix Tab*) 20 mg PO DAILY [facility] Last Admin: 07/25/18 08:44 Dose: 20 mg Guaifenesin (Mucinex*) 1,200 mg PO BID [facility] Last Admin: 07/25/18 08:43 Dose: 1,200 mg Ceftriaxone Sodium 1 gm/ (Sodium Chloride) 50 mls @ 200 mls/hr IVPB Q24HR@1930 [facility] Last Admin: 07/24/18 19:20 Dose: 200 mls/hr Metronidazole/Sodium Chloride (Flagyl 500 Mg Ivpb*) 500 mg in 100 mls @ 100 mls /hr IVPB BID [facility] Multivitamins/Minerals (Theragran/Minerals Tab*) 1 tab PO DAILY [facility] Last Admin: 07/25/18 08:44 Dose: 1 tab Tamsulosin HCl (Flomax Cap*) 0.4 mg PO DAILY [facility] Last Admin: 07/25/18 08:44 Dose: 0.4 mg Vital Signs - 8 hr 07/25/18 07/25/18 08:00 11:14 Temperature 97.2 F Pulse Rate 91 Respiratory 24 16 Rate Blood Pressure 120/76 (mmHg) O2 Sat by Pulse 99 99 Oximetry Oxygen Devices in Use Now: Nasal Cannula Appearance: Awake, when asleep his respiratory status is stable, no audible wheezing. Eyes: No Scleral Icterus Ears/Nose/Mouth/Throat: Mucous Membranes Moist, - - Very hard of hearing Neck: Trachea Midline Respiratory: Symmetrical Chest Expansion and Respiratory Effort, - - bilateral wheezing, transmitted upper airway breathsounds Cardiovascular: NL Sounds; No Murmurs; No JVD Abdominal: NL Sounds; No Tenderness; No Distention Extremities: No Edema Result Diagrams: 07/25/18 05:30 07/25/18 05:30 Microbiology and Other Data: Microbiology 07/20/18 15:32 Aerobic Blood Culture - Preliminary Blood Venous 07/20/18 15:49 Anaerobic Blood Culture - Preliminary Blood Venous Blood MRSA/MSSA (PCR) - Final Mrsa Negative S.aureus Negative 07/20/18 16:55 Streptococcus pneumoniae Ag Screen - Final Urine Negative S. pneumo Antigen 07/20/18 16:55 Legionella Urinary Antigen - Final Urine Negative Legionella Antigen 07/20/18 17:47 Nasal Screen MRSA (PCR) - Final Nasal Mrsa Not Detected Assess/Plan/Problems-Billing Assessment: 83 year old male admitted for URI secondary to Influenza A+ and superimposed with possible bacterial pneumoniae. BC positive for streptococcus infantarium and clostiridium perferinges - Patient Problems (1) Influenza A Current Visit: Yes Status: Acute Code(s): J10.1 - FLU DUE TO OTH IDENT INFLUENZA VIRUS W OTH RESP MANIFEST SNOMED Code(s): 987766278 Comment: - completed oseltamivir day# 5/5 on 07/25/18 - Continue Duoneb and albuterol, PRN, Mucinex 1200 mg bid - repeat CXR 2 views 07/25/18 negative for infiltrate - I will maintain him on ceftriaxone day # 5; completed azithromycin day # 5/5; (2) HTN (hypertension) Current Visit: No Status: Acute Code(s): I10 - ESSENTIAL (PRIMARY) HYPERTENSION SNOMED Code(s): 07256783 Comment: - Atenolol on hold for now (3) Seizure disorder Current Visit: No Status: Acute Code(s): G40.909 - EPILEPSY, UNSP, NOT INTRACTABLE, WITHOUT STATUS EPILEPTICUS SNOMED Code(s): 107375271 Comment: - Continue carbamazepine 200 mg tid. (4) Dementia Current Visit: Yes Status: Acute Code(s): F03.90 - UNSPECIFIED DEMENTIA WITHOUT BEHAVIORAL DISTURBANCE SNOMED Code(s): 13749663 (5) DVT prophylaxis Current Visit: No Status: Acute Code(s): SOH1546 - SNOMED Code(s): 409752589 Comment: -Continue Heparin SQ
[2018-07-25] MEDS: metroNIDAZOLE IV 500 MG/100ML* 500 MG/100 ML BAG IVPB SCH (16:12)
[2018-07-25] MEDS: Dexamethasone TAB* 4 MG PO SCH ×2 (16:12→20:14)
[2018-07-25] MEDS: cefTRIAXone(*) 1 GM in NS 0.9% 50 ML* 50 ML IVPB SCH (19:14)
[2018-07-26] MEDS: metroNIDAZOLE IV 500 MG/100ML* 500 MG/100 ML BAG IVPB SCH (03:40)
[2018-07-26 06:09] LABS: ABS Basophils 0 10^3/ul (0-0.2); ABS Eosinophils 0 10^3/ul (0-0.6); ABS Lymphocytes 1.7 10^3/ul (1.0-4.8); ABS Monocytes 0.7 10^3/ul (0-0.8); ABS Neutrophils 7.2 10^3/ul (1.5-7.7); ABS Nucleated RBC 0 10^3/ul; Eosinophil % 0.2 %; Hematocrit 42 % (36-46); Hemoglobin 13.9 g/dL (14.0-18.0); Lymphocyte % 17.1 %; Mean Corpuscular HGB Conc 33 g/dL (31-36); Mean Corpuscular Hemoglobin 31 pg (27-31); Mean Corpuscular Volume 94 fL (80-94); Mean Platelet Volume 7.5 fL (7.4-10.4); Nucleated Red Blood Cells % 0; Platelet Count 258 10^3/uL (150-450); Red Blood Count 4.51 10^6 /uL (4.18-5.48); Red Cell Distribution Width 14 % (10.5-15); White Blood Count 9.7 10^3/uL (3.5-10.8)
[2018-07-26 06:13] LABS: Calcium 8.5 mg/dL (8.6-10.3); Magnesium 2.1 mg/dL (1.9-2.7)
[2018-07-26 06:19] LABS: BUN/Creatinine Ratio 25.9 (8-20); EGFR African American 161.5 (>60); EGFR Non-African American 133.5 (>60)
[2018-07-26 07:01] LABS: Potassium 4.6 mmol/L (3.5-5.0)
[2018-07-26] MEDS: Furosemide TAB* 20 MG PO SCH (08:41)
[2018-07-26] MEDS: guaiFENesin ER TAB 600 MG PO SCH ×2 (08:41→22:24)
[2018-07-26] MEDS: carBAMazepine TAB(*) 200 MG PO SCH ×3 (08:42→22:24)
[2018-07-26] MEDS: Multivitamins/Minerals TAB PO SCH (08:42)
[2018-07-26] MEDS: Dexamethasone TAB* 4 MG PO SCH ×3 (08:42→22:24)
[2018-07-26] MEDS: Tamsulosin CAP* 0.4 MG PO SCH (08:42)
--- NOTE | 2018-07-26 12:36 | CONS ---
CONSULTATION REPORT: DATE OF CONSULT: 07/26/18 REQUESTING PROVIDER: Dr. Armijo. CONSULTING SERVICE: Infectious Disease. REASON FOR CONSULT: Bacteremia, pneumonia. IMPRESSION: 1. Admitted with influenza A and on admission found to have Strep infantarius in 2 of 4 blood culture bottles drawn at separate times and then Clostridium perfringens in 1 of 4 taken together suggesting a gastrointestinal source of infection. CT abdomen and pelvis did not show an abscess. Gallbladder was normal. His LFTs were fine and has not had right upper quadrant pains. Gallbladder seems less likely as well and other consideration is that he has a small right lobe infiltrate. He has a history of aspiration. I suspect he has an aspiration pneumonia, which would explain these organisms. His followup cultures have cleared and that includes while on ceftriaxone, azithromycin, Clostridium has gone which is not unexpected. 2. Dementia. 3. Hard of hearing. 4. Seizure disorder. 5. Small bowel obstruction, June 2018. RECOMMENDATIONS: We will change his antibiotics to Augmentin 500 mg by mouth twice a day for 3 more days to complete a course of treatment. He has a modified diet based on his aspiration issues. HISTORY OF PRESENT ILLNESS: An 83-year-old man who has recently started living at [facility] after falls and illnesses at home. He certainly could not take care of him. While there, he has fallen a couple of times. He was having fevers apparently per the medical record and was brought to the hospital on the 07/20/18. An influenza A test was positive at that time. He had an infiltrate on right base, was started on ceftriaxone and azithromycin. He was initially febrile and that has resolved. His oxygen requirement has improved. Blood cultures on admission grew Strep infantarius in 2 bottles and Clostridium perfringens in 1 of 4 bottles. Followup blood cultures sent on 07/25/18 are negative 24 hours. He has been on ceftriaxone for 5 days. Flagyl was added yesterday. His nephew who has been one of his caregivers states he has made significant improvement in energy, appetite and mental status since he has been here. PAST MEDICAL HISTORY: 1. Dysphagia. 2. Seizure disorder. 3. Dementia. 4. Hypertension. 5. Benign prostatic hypertrophy. 6. B12 deficiency. 7. Small bowel obstruction in 2019. 8. Pulmonary edema. MEDICATIONS: 1. Tylenol. 2. Carbamazepine. 3. Albuterol inhaler. 4. Ceftriaxone 1 g a day. 5. Dexamethasone 4 mg by mouth 3 times a day. 6. Lasix daily. 7. Guaifenesin twice a day. 8. Flagyl 500 mg every 12 hours. 9. Tamsulosin. 10. Multivitamin. ALLERGIES: ASPIRIN, IBUPROFEN. FAMILY HISTORY: Mother had heart failure and hypothyroidism. Father had lung cancer. SOCIAL HISTORY: He lives at [facility]. 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 He does not use alcohol. He is not a smoker, had not been one. REVIEW OF SYSTEMS: Unobtainable given his mental status. PHYSICAL EXAM: Vital Signs: Temperature is 36.4, heart rate 75, respiratory rate 20, blood pressure 120/90, oxygen saturation 94% on 2 L. In general, he is awake, not in distress. Neurologic: He answers questions, follows commands , has difficulty hearing. HEENT: There is no conjunctival hemorrhage. Oropharynx without lesions. Neck is supple without mass. Heart is regular rate and rhythm without murmurs, rubs, or gallops. Lungs: Clear to auscultation bilaterally. Abdomen: Soft, nontender, nondistended. Bowel sounds present. Skin: There is no rash or splinter hemorrhage. Musculoskeletal: There is no spine tenderness to palpation. There is no joint synovitis. DIAGNOSTIC STUDIES/LAB DATA: White blood cell count 9, hemoglobin 13, platelets 258. Creatinine is 0.5. Urinalysis on admission showed 2+ blood, no white cells. Please see impressions and recommendations outlined above. Thanks for asking me to see Mr. Muniz in consultation. [id number]/[facility] #: [id number] FAIZA
[2018-07-26] MEDS: Albuterol/Ipratropium NEB.SOL* Albuterol 2.5 MG/Ipratropium 0.5 MG 3 ML INH PRN (13:53)
--- NOTE | 2018-07-26 14:46 | PN ---
Subjective Date of Service: 07/26/18 Interval History: He was seen in his room today, no acute events overnight. ID input appreciated. Recommendation noted and implemented. Spoke to his family they did expressed concerns regarding going back to his residential for issues with care. otherwise he is doing better, less dyspneic but still have audible wheezing but to a lesser extent Past Medical History: Unchanged from Admission Objective Active Medications: Acetaminophen (Tylenol Tab*) 650 mg PO Q6H PRN PRN Reason: PAIN Albuterol (Ventolin 2.5 Mg/3 Ml Neb.Ann*) 2.5 mg INH RT.[id number] AWAKE PRN PRN Reason: SOB/WHEEZING Albuterol/Ipratropium (Duoneb (Albuterol 2.5 Mg/Ipratropium 0.5 Mg)) 1 neb INH RT.[id number] AWAKE PRN PRN Reason: SOB/WHEEZING Last Admin: 07/26/18 13:53 Dose: 1 neb Amoxicillin/Clavulanate Potassium (Augmentin Tab*) 500 mg PO BID [facility] Carbamazepine (Tegretol Tab(*)) 200 mg PO TID [facility] Last Admin: 07/26/18 14:24 Dose: 200 mg Dexamethasone (Decadron Tab*) 4 mg PO TID [facility] Last Admin: 07/26/18 14:24 Dose: 4 mg Epinephrine HCl (Epinephrine,Rac 2.25% Neb.Ann*) 0.25 ml INH Q2H PRN PRN Reason: wheeze Last Admin: 07/25/18 03:09 Dose: 2.25 % Furosemide (Lasix Tab*) 20 mg PO DAILY [facility] Last Admin: 07/26/18 08:41 Dose: 20 mg Guaifenesin (Mucinex*) 1,200 mg PO BID [facility] Last Admin: 07/26/18 08:41 Dose: 1,200 mg Multivitamins/Minerals (Theragran/Minerals Tab*) 1 tab PO DAILY [facility] Last Admin: 07/26/18 08:42 Dose: 1 tab Tamsulosin HCl (Flomax Cap*) 0.4 mg PO DAILY [facility] Last Admin: 07/26/18 08:42 Dose: 0.4 mg Vital Signs - 8 hr 07/26/18 07/26/18 07/26/18 07:57 08:00 13:54 Temperature 97.6 F Pulse Rate 77 74 Respiratory 20 28 18 Rate Blood Pressure 121/91 (mmHg) O2 Sat by Pulse 94 94 94 Oximetry 07/26/18 13:55 Temperature 97.6 F Pulse Rate 100 Respiratory 24 Rate Blood Pressure 112/68 (mmHg) O2 Sat by Pulse 96 Oximetry Oxygen Devices in Use Now: None Appearance: Awake, hard of hearing. sitting in his recliner. No acute distress Eyes: No Scleral Icterus, - - EOMI Ears/Nose/Mouth/Throat: NL Teeth, Lips, Gums, Mucous Membranes Moist Neck: NL Appearance and Movements; NL JVP, Trachea Midline Respiratory: Symmetrical Chest Expansion and Respiratory Effort, Clear to Auscultation Cardiovascular: NL Sounds; No Murmurs; No JVD, No Edema Abdominal: NL Sounds; No Tenderness; No Distention Lymphatic: No Cervical Adenopathy Neurological: Alert and Oriented x 3 Result Diagrams: 07/26/18 05:30 07/26/18 05:30 Microbiology and Other Data: Microbiology 07/20/18 15:32 Aerobic Blood Culture - Preliminary Blood Venous 07/20/18 15:49 Anaerobic Blood Culture - Preliminary Blood Venous Blood MRSA/MSSA (PCR) - Final Mrsa Negative S.aureus Negative 07/20/18 16:55 Streptococcus pneumoniae Ag Screen - Final Urine Negative S. pneumo Antigen 07/20/18 16:55 Legionella Urinary Antigen - Final Urine Negative Legionella Antigen 07/20/18 17:47 Nasal Screen MRSA (PCR) - Final Nasal Mrsa Not Detected Assess/Plan/Problems-Billing Assessment: 83 year old male admitted for URI secondary to Influenza A+ and superimposed with possible bacterial pneumoniae. BC positive for streptococcus infantarium and clostiridium perferinges - Patient Problems (1) Aspiration pneumonia Current Visit: Yes Status: Acute Code(s): J69.0 - PNEUMONITIS DUE TO INHALATION OF FOOD AND VOMIT SNOMED Code(s): 620943092 Comment: - repeat CXR 2 views 07/25/18 negative for infiltrate - s/p ceftriaxone day # 6; completed azithromycin day # 5/5; - I will switch him to augmentin for aspiration as per ID recommendations - Swallow evaluations ordered for today. continue his current modified diet for now (2) Influenza A Current Visit: Yes Status: Acute Code(s): J10.1 - FLU DUE TO OTH IDENT INFLUENZA VIRUS W OTH RESP MANIFEST SNOMED Code(s): 625239231 Comment: - completed oseltamivir day# 5/5 on 07/25/18 - Continue Duoneb and albuterol, PRN, Mucinex 1200 mg bid - repeat CXR 2 views 07/25/18 negative for infiltrate - s/p ceftriaxone day # 6; completed azithromycin day # 5/5; - I will switch him to augmentin for aspiration as per ID recommendations (3) HTN (hypertension) Current Visit: No Status: Acute Code(s): I10 - ESSENTIAL (PRIMARY) HYPERTENSION SNOMED Code(s): 76038312 Comment: - Atenolol on hold for now, I will resume now that his BP and pulse improved (4) Seizure disorder Current Visit: No Status: Acute Code(s): G40.909 - EPILEPSY, UNSP, NOT INTRACTABLE, WITHOUT STATUS EPILEPTICUS SNOMED Code(s): 426701049 Comment: - Continue carbamazepine 200 mg tid. (5) Dementia Current Visit: Yes Status: Acute Code(s): F03.90 - UNSPECIFIED DEMENTIA WITHOUT BEHAVIORAL DISTURBANCE SNOMED Code(s): 47625555 (6) DVT prophylaxis Current Visit: No Status: Acute Code(s): MAF0243 - SNOMED Code(s): 864436795 Comment: -Continue Heparin SQ
[2018-07-26] MEDS: Atenolol TAB* 25 MG PO SCH (15:36)
[2018-07-26] MEDS ORDERED: Polyethylene Glycol 3350* 17 GM PACKET ONE (17:07)
[2018-07-26] MEDS: Amoxicillin/Clavulanate TAB* 500 MG PO SCH (22:24)
[2018-07-27] MEDS: guaiFENesin ER TAB 600 MG PO SCH (07:57)
[2018-07-27] MEDS: Amoxicillin/Clavulanate TAB* 500 MG PO SCH (07:57)
[2018-07-27] MEDS: Atenolol TAB* 25 MG PO SCH (07:57)
[2018-07-27] MEDS: Furosemide TAB* 20 MG PO SCH (07:57)
[2018-07-27] MEDS: Multivitamins/Minerals TAB PO SCH (07:57)
[2018-07-27] MEDS: Dexamethasone TAB* 4 MG PO SCH ×2 (07:57→13:11)
[2018-07-27] MEDS: carBAMazepine TAB(*) 200 MG PO SCH ×2 (07:57→13:11)
[2018-07-27] MEDS: Tamsulosin CAP* 0.4 MG PO SCH (07:57)
--- NOTE | 2018-07-27 08:43 | PN ---
Progress Note - Progress Note Date of Service: 07/27/18 SOAP: Subjective: CC: Pneumonia, influenza A, bacteremia. HPI: Mr. Muniz is an 83 yo male with PMH significant for dementia, seizure disorder , dysphasia, HTN, BPH, Vit b12 deficiency who presented to the emergency room with complaints of falls and illness from [facility]. He was found to have influenza A and strep infantarius bacteremia. Denies fever, chills, shortness of breath, bowel or bladder concerns. Objective: Vital Signs - 8 hr 07/27/18 07/27/18 07/27/18 03:34 06:14 06:30 Temperature 97.0 F 97.0 F 97.0 F Pulse Rate 65 72 72 Respiratory 23 24 24 Rate Blood Pressure 137/68 148/79 148/79 (mmHg) O2 Sat by Pulse 90 92 92 Oximetry Physical Exam: General: NAD, sitting up in a chair Neurological: Alert and Oriented to Person Cardiovascular: Heart rate regular Respiratory: Lung sounds clear to auscultation bilateral Abdominal: Bowel sounds present, ABD soft, non tender and non distended Skin: No rashes seen on the exposed skin Microbiology 07/25/18 09:07 Blood Culture - Preliminary Blood Venous No Growth Day 1 07/25/18 09:00 Blood Culture - Preliminary Blood Venous No Growth Day 1 07/20/18 15:49 Aerobic Blood Culture - Final Blood Venous No Growth Day 5 Anaerobic Blood Culture - Final Strep Infantarius Ssp Coli Clostridium Perfringens Blood MRSA/MSSA (PCR) - Final Mrsa Negative S.aureus Negative 07/20/18 15:32 Aerobic Blood Culture - Final Blood Venous Strep Infantarius Ssp Coli Anaerobic Blood Culture - Final No Growth Day 5 07/20/18 16:55 Streptococcus pneumoniae Ag Screen - Final Urine Negative S. pneumo Antigen 07/20/18 16:55 Legionella Urinary Antigen - Final Urine Negative Legionella Antigen 07/20/18 17:47 Nasal Screen MRSA (PCR) - Final Nasal Mrsa Not Detected Assessment: 1. Aspiration PNA. Tolerating a modified diet. Legionella and S. Pneumo antigens negative. Afebrile and no leukocytosis. 2. Bacteremia. Strep infantarius in 2/4 blood cultures and Clostridium perfringens 1/4 blood cultures suggest a GI source. Repeat blood cultures with no growth to date. ABD CT without signs of abscess, GB normal. Susupect this is secondary to an aspiration PNA. There is a right LL infiltrate seen on imaging. Afebrile. 3. Influenza A. Completed 5 day course of Tamiflu. 4. Dementia. Plan: Continue Augmentin 500 mg PO for 2 more days to complete course of ABX. Continue modified diet (pureed and honey thicken liquids) to help prevent further aspiration.
[2018-07-27 11:43] VITALS: BP 117/68
--- NOTE | 2018-07-27 13:52 | DS ---
CC: Dr. Lalit Stanley DISCHARGE SUMMARY: DATE OF ADMISSION: 07/20/18 DATE OF DISCHARGE: 07/27/18. PRIMARY CARE PROVIDER: Dr. Lalit Stanley. FINAL DISCHARGE DIAGNOSES: 1. Influenza A pneumonia. 2. Aspiration pneumonia with bacteremia for Clostridium perfringens and Streptococcus infantarius. 3. Chemical pneumonitis secondary to aspiration pneumonia. ADDITIONAL DIAGNOSES: 1. Known history of hypertension. 2. History of seizure disorders. 3. History of dementia. 4. History of benign prostatic hypertrophy. 5. History of B12 deficiency. HOSPITAL COURSE: The patient presented to [facility] on 07/20/18 for shortness of breath with underlying preexisting diagnosis of influenza A pneumonia, was on Tamiflu, but he continued to h ave more dyspnea, increased wheezing with tachypnea. Therefore, he was started on Vapotherm 40% to 5 0% due to his hypoxia and he did have finding of interstitial edema on a chest x-ray, for which he wa s started on Lasix 80 mg in the ER as well as Solu-Medrol. Nonetheless, he improved with the treatme nt in the ER, but he was maintained on 40% to 50% of oxygen and he was admitted to the [facility] and was initiated on intravenous antibiotic with ceftriaxone and the plan was to keep him on Solu- Medrol and azithromycin as well along with the Tamiflu. He was seen by me as initial encounter on , 4 days after his presentation, and when I assessed him, he was still having a significant lilly unt of expiratory wheezing with coarse rhonchi. He completed his 4 days of Tamiflu, and at that day, I initiated him on dexamethasone versus prednisone given his ongoing upper respiratory wheezing and possible pneumonitis from aspiration. At the same time, his blood culture came back positive for Rhonda stridium perfringens and the Streptococcus infantarius, which was concerning for anaerobe chuy teremia. I did go back and looked into the ER record. He did have abdominal CT, which did not show any evidence of gallbladder disease. I did consult Infectious Disease regarding antibiotic recommend ation and given the setting that the patient presented with, it is most likely fitting the scenario o f aspiration which led to anaerobe bacteremia. His antibiotic was switched to oral Augmentin. Speech Pathology was requested and his diet was switched to soft diet with thin liquids. Over the following few days from 07/24/18 to today, his respiratory significantly improved on dexamethasone al racheal with his course of antibiotic and I implemented Lasix 20 mg given his presentation of pulmonary e beth. I assessed this morning and late morning, and I deemed him stable for discharge with the follow ing plan as outlined below. DISCHARGE PHYSICAL EXAM: Today, his temperature is 98.3, pulse 72, respiratory rate 22, saturation 9 5%, blood pressure 117/68. General: He is pleasant, very hard of hearing, able to self-feed himself on a pureed diet. Head and Neck: Supple. Moist mucous membranes. When he is sleeping and resting, his respiratory rate is 16 to 18 without any audible wheeze. He does have audible wheeze when he is awakened and when he is performing his respiratory exam, but significantly improved for the past 48 hours. Cardiovascular: S1, S2. Regular rate and rhythm. Abdomen: Positive bowel sounds. Soft, no ntender, nondistended. Extremities: No edema. SUPERINTENDENT RENTING MANAGING: Pleasantly confused, in no distress. DIAGNOSTIC STUDIES: Multiple CBCs, fairly unremarkable. Blood gas, which did show some hypoxemia on presentation requiring 40% and now his oxygen is on room air 99%. Chemistry: Slight hyponatremia, o therwise unremarkable, and influenza which was positive from admission. Blood cultures: He had bloo d culture positive for Clostridium perfringens and Streptococcus infantarius. Repeat blood cultures resolved between 07/20/18 and on repeat on 07/25/18. IMAGING STUDIES: Chest x-ray shows interstitial edema and cardiomegaly on presentation, 07/20/18. C T of the chest and abdomen shows multiple fractures in the spine, specifically on the T12, unchanged from previous studies. Chronic bilateral lower rib fractures. Right lower lobe infiltrate with trac e pleural effusion, consistent with the presentation and aspiration pneumonia. Chest x-ray repeated on 07/22/18 reveals less atelectasis and confirmed the consolidation. CONSULTATION: Infectious Disease with Dr. Pascual with the recommendation to place him on oral Augm entin to complete antibiotic course. DISCHARGE MEDICATIONS: He will be discharged on resumption of his senior care medicines. 1. Tylenol 325 mg q.6. 2. Atenolol 25 daily. 3. Carbamazepine 200 t.i.d. 4. Bentyl 10 q.i.d. 5. DuoNeb as needed. 6. Imodium as needed. 7. Multivitamin daily. 8. Flomax 0.4 daily. New prescription on discharge: 1. Augmentin 500 mg p.o. b.i.d. for additional 3 more days. 2. Decadron - dexamethasone 4 mg tab. He is to take 4 mg t.i.d. for 2 days, he has been on it alrea dy 3 days in the hospital; 2 mg t.i.d. for 4 more days; and then 1 mg t.i.d. for 4 more days and disc ontinue. 3. Lasix 20 mg daily Monday to Monday, off on the weekend. DISCHARGE INSTRUCTIONS: 1. To take medications as prescribed. 2. Adhere to the diet of soft with thin liquid. 3. Fall precaution at the facility to be implemented. He is at very high risk of fall. 4. Followup with his primary care within 1 week. [id number]/[facility] #: [id number]
[2018-07-27] MEDS ORDERED: Polyethylene Glycol 3350* 17 GM PACKET PO ONE (16:07)
--- NOTE | 2018-07-28 00:20 | DS ---
DISCHARGE SUMMARY: ADDENDUM: DISCHARGE DISPOSITION: Stable. DISCHARGE LOCATION: [facility]. TIME SPENT: Total time on discharge 35 minutes. [id number]/[facility] #: [id number]
== END 2018-07-27 16:15 | DRG 193 ==
LOC: ED 14:52 → ICU 17:22 → MED 07-21 13:27 → ICU 07-22 00:24 → MED 07-23 15:10
PROVIDERS: ADMIT Internal Medicine; ATTEND Internal Medicine
PROC: 5A09357 Assistance with Respiratory Ventilation, Less than 24 Consecutive Hours, Continuous Positive Airway Pressure (ICD-10-PCS; principal; 2018-07-21)
DX: J10.00 Influenza due to other identified influenza virus with unspecified type of pneumonia (principal); J96.01 Acute respiratory failure with hypoxia; S22.081A Stable burst fracture of T11-T12 vertebra, initial encounter for closed fracture; J81.1 Chronic pulmonary edema; R78.81 Bacteremia; E87.1 Hypo-osmolality and hyponatremia; E87.3 Alkalosis; W07.XXXA Fall from chair, initial encounter; S50.312A Abrasion of left elbow, initial encounter; F03.90 Unspecified dementia, unspecified severity, without behavioral disturbance, psychotic disturbance, mood disturbance, and anxiety; I10 Essential (primary) hypertension; J44.9 Chronic obstructive pulmonary disease, unspecified; N40.0 Benign prostatic hyperplasia without lower urinary tract symptoms; G40.909 Epilepsy, unspecified, not intractable, without status epilepticus; R29.6 Repeated falls; I50.9 Heart failure, unspecified; Z66 Do not resuscitate; I45.10 Unspecified right bundle-branch block; K58.0 Irritable bowel syndrome with diarrhea; H91.90 Unspecified hearing loss, unspecified ear; B96.7 Clostridium perfringens [C. perfringens] as the cause of diseases classified elsewhere; B95.4 Other streptococcus as the cause of diseases classified elsewhere; Z88.6 Allergy status to analgesic agent; Y92.129 Unspecified place in nursing home as the place of occurrence of the external cause; Z82.49 Family history of ischemic heart disease and other diseases of the circulatory system; Z80.1 Family history of malignant neoplasm of trachea, bronchus and lung; Z83.49 Family history of other endocrine, nutritional and metabolic diseases; Z88.8 Allergy status to other drugs, medicaments and biological substances; J69.0 Pneumonitis due to inhalation of food and vomit; J68.0 Bronchitis and pneumonitis due to chemicals, gases, fumes and vapors
CPT/HCPCS: 36415; 36600; 70450; 71045; 71046; 71260; 72125; 74177; 80048; 80053; 81003; 81015; 82803; 83605; 83735; 83880; 84100; 84145; 84484; 85025; 86140; 87040; 87076; 87077; 87150; 87186; 87205; 87641; 87899; 93005; 94640; 94660; 99285; A9270-GY; G8978-GP-CK; G8979-GP-CI; J0456; J0696; J1940; J2920; J2930; J3475; J3490; J7512; J8540; Q9967

== ENCOUNTER 2018-11-18 08:24 | Inpatient (IN) | payer MEDICARE, MEDICAID ==
--- NOTE | 2018-11-18 10:42 | ED ---
Lower Extremity - HPI Summary HPI Summary: Disposition is an 83-year-old male presenting by EMS from [facility] with acute low back pain and possible right hip pain. Nursing staff states he fell getting out of bed yesterday and has been complaining of back pain since that time. They deny any other known injuries including head injury or LOC. Patient has dementia, and nursing staff state he has been acting at his baseline. On physical examination, patient is pleasantly confused and is not alert and oriented to person place or time. No blood thinners. PMH includes dementia, seizure activity, constipation, hypertension Medications include Flomax, atenolol, and Tegretol. Social history: Nonsmoker, no alcohol use, lives at [facility] Son is health care proxy and requesting interventions if prolonging quality of life - History of Current Complaint Chief Complaint: EDFall Stated Complaint: "BACK PAIN PER EMS" Hx Obtained From: Patient Onset of Pain: Hours, Days Onset/Duration: Days Severity Initially: Mild Severity Currently: Mild Pain Intensity: 5 Pain Scale Used: 0-10 Numeric Timing: Constant Location: Is Discrete @ - low back pain and R hip pain Associated Signs And Symptoms: Negative: Swelling, Redness, Bruising, Weakness, Dizziness Aggravating Factor(s): Standing, Ambulation Alleviating Factor(s): Rest - Risk Factors Gout Risk Factors: Age Over 40, Male Septic Arthritis Risk Factor: Extremes of Age - Allergies/Home Medications Allergies/Adverse Reactions: Allergies Allergy/AdvReac Type Severity Reaction Status Date / Time aspirin Allergy Swelling Verified 11/18/18 08:37 Of Face,Lips,& Throat ibuprofen Allergy Unknown Verified 11/18/18 08:37 Reaction Details Home Medications: Home Medications Furosemide TAB* [Lasix TAB*] 20 mg PO SEE INSTRUCTIONS 11/18/18 [History Confirmed 11/18/18] PMH/Surg Hx/FS Hx/Imm Hx Previously Healthy: Yes Endocrine/Hematology History: Reports: Other Endocrine/Hematological Disorders - B12 Deficiency Denies: Hx Anticoagulant Therapy, Hx Diabetes Cardiovascular History: Reports: Hx Hypertension Respiratory History: Reports: Hx Asthma, Hx Chronic Obstructive Pulmonary Disease (COPD), Other Respiratory Problems/Disorders - HX OF SEIZURES GI History: Reports: Hx Irritable Bowel, Other GI Disorders - SMBO History: Reports: Hx Benign Prostatic Hyperplasia Denies: Hx Dialysis, Hx Renal Disease Sensory History: Reports: Hx Contacts or Glasses, Hx Hearing Aid, Hx Hearing Problem - WEARS HEARING AIDS Opthamlomology History: Reports: Hx Contacts or Glasses Neurological History: Reports: Hx Dementia, Hx Seizures - Immunization History Hx Pertussis Vaccination: No Immunizations Up to Date: Yes Infectious Disease History: Unable to Obtain/Confirm Infectious Disease History: Denies: Traveled Outside the [place] in Last 30 Days - Family History Known Family History: Positive: Seizure Disorder, Other - Patient does not recall his FHx - Social History Occupation: Unemployed Lives: [facility] Alcohol Use: None Hx Substance Use: No Substance Use Type: Reports: None Hx Tobacco Use: No Smoking Status (MU): Never Smoked Tobacco Review of Systems - ROS Summary Review of Systems Summary: Patient has hx of dementia Negative: Fever, Chills, Skin Diaphoresis Negative: Palpitations, Chest Pain Genitourinary: Negative Positive: no symptoms reported, see HPI Positive: Arthralgia - right hip pain. Negative: Myalgia Skin: Negative Neurological: Negative All Other Systems Reviewed And Are Negative: Yes Physical Exam - Summary Physical Exam Summary: no acute distress Triage Information Reviewed: Yes Vital Signs On Initial Exam: Initial Vitals Temp Pulse Resp BP Pulse Ox 97.9 F 62 18 109/68 94 11/18/18 08:34 11/18/18 08:34 11/18/18 08:34 11/18/18 08:34 11/18/18 08:34 Vital Signs Reviewed: Yes Appearance: Positive: Well-Appearing, Well-Nourished Skin: Positive: Skin Color Reflects Adequate Perfusion Head/Face: Positive: Normal Head/Face Inspection Eyes: Positive: EOMI, Conjunctiva Clear Cardiovascular: Positive: Normal, RRR Musculoskeletal: Positive: Normal, Pain @ - right hip pain Neurological: Positive: Facial Symmetry Psychiatric: Positive: Affect/Mood Appropriate Diagnostics - Vital Signs Vital Signs Temp Pulse Resp BP Pulse Ox 11/18/18 08:34 97.9 F 62 18 109/68 94 - Laboratory Lab Statement: Any lab studies that have been ordered have been reviewed, and results considered in the medical decision making process. Lower Extremity Course/Dx - Course Course Of Treatment: During this was given, the patient is evaluated for acute low back pain which occurred after a fall getting out of bed yesterday. On physical examination, patient does not appear to have back pain on palpation throughout the cervical, thoracic and lumbar spine. No step-offs noted. No evidence of trauma. No abrasions or open wounds. He does have some right- sided hip pain on log roll and hip is slightly flexed. CT cervical, thoracic and lumbar including pelvis obtained. Minimally displaced right intertrochanteric hip fracture. A second transversely oriented fracture plane extending to the greater tuberosity. Discussed case with Dr. Troy who suggests admission through hospitalist service. Discussed with Dr. Rod who will admit. Chest xray and EKG and labs all pending. - Diagnoses Provider Diagnoses: Intertrochanteric fracture - Physician Notifications Discussed Care Of Patient With: Barbara Troy Instructed by Provider To: Admit As Inpatient Discharge - Sign-Out/Discharge Documenting (check all that apply): Patient Departure - Discharge Plan Condition: Fair Disposition: ADMITTED TO [facility] Referrals: Garrett Sierra MD [Primary Care Provider] - - Billing Disposition and Condition Condition: FAIR Disposition: Admitted to [facility]
--- NOTE | 2018-11-18 11:30 | CONS ---
CONSULTATION NOTE: DATE OF CONSULT: 11/18/18 CHIEF COMPLAINT: Right hip pain. HISTORY OF PRESENT ILLNESS: Mr. Muniz is an 83-year-old man who lives at [facility]. He suffers from dementia and a seizure disorder. He fell yesterday and today was complaining of back pain, so he was brought to the emergency room. He had a CT scan of the pelvis, which shows a nondisplaced intertrochanteric fracture of the right hip. He did not have other findings on his CT scan. PHYSICAL EXAM: On exam, he is a healthy-appearing, very pleasant man, in minimal distress at rest. He has no obvious deformity of his lower extremity. His skin is intact. He has active motion of his right lower extremity and sensation as well and a well-perfused right foot. DIAGNOSTIC STUDIES: I reviewed his CT scan, which shows a nondisplaced intertrochanteric fracture of the right hip. IMPRESSION: Right hip intertrochanteric fracture. PLAN: The plan is for open reduction and internal fixation. The patient has a healthcare proxy and power of document review attorney, who is his nephew, and I have spoken to him concerning the risks and benefits of the procedure and he would like to proceed. [id number]/[facility] #: [id number] MTDD
[2018-11-18 11:44] LABS: ABS Monocytes 0.6 10^3/ul (0-0.8); ABS Neutrophils 6.6 10^3/ul (1.5-7.7); Eosinophil % 0.4 %; Hematocrit 40 % (42-52); Hemoglobin 14.3 g/dL (14.0-18.0); Lymphocyte % 11.6 %; Mean Corpuscular HGB Conc 35 g/dL (31-36); Mean Corpuscular Hemoglobin 32 pg (27-31); Mean Corpuscular Volume 90 fL (80-94); Mean Platelet Volume 6.5 fL (7.4-10.4); Nucleated Red Blood Cells % 0.1; Platelet Count 252 10^3/uL (150-450); Red Blood Count 4.47 10^6 /uL (4.18-5.48); Red Cell Distribution Width 14 % (10-15); White Blood Count 8.2 10^3/uL (3.5-10.8)
[2018-11-18] MEDS ORDERED: NS 0.9% 1000 ML** 1,000 ML IV SCH (11:45)
[2018-11-18] MEDS ORDERED: Magnesium Hydroxide LIQ* 30 ML UDC PO PRN (11:46)
[2018-11-18] MEDS ORDERED: Senna TAB 8.6 mg* TAB PO PRN (11:46)
[2018-11-18] MEDS ORDERED: Polyethylene Glycol 3350* 17 GM PACKET PO PRN (11:46)
[2018-11-18 11:50] LABS: INR 1.1 (0.82-1.09)
[2018-11-18 12:05] LABS: Albumin 3.7 g/dL (3.2-5.2); Albumin/Globulin Ratio 1.1 (1-3); Calcium 9.1 mg/dL (8.6-10.3); EGFR African American 105.3 (>60); EGFR Non-African American 87.1 (>60); Globulin 3.4 g/dL (2-4); Potassium 4.6 mmol/L (3.5-5.0); Total Bilirubin 0.5 mg/dL (0.2-1.0); Total Protein 7.1 g/dL (6.4-8.9)
[2018-11-18 12:43] LABS: Carbamazepine 12.9 mcg/mL (4.0-12.0)
[2018-11-18] MEDS ORDERED: Dextrose 50% VIAL 50 ml ONE (12:51)
--- NOTE | 2018-11-18 13:41 | HP ---
CC: Dr. Troy * HISTORY AND PHYSICAL: DATE OF ADMISSION: 11/18/18 PROVIDER: Lyn Nicole NP ATTENDING PHYSICIAN WHILE IN THE HOSPITAL: Dr. Oscar Rod * (dictated by Lyn Nicole NP). PRIMARY CARE PROVIDERS: 1. [facility] provider. 2. Dr. Stanley. CHIEF COMPLAINT: Fall, right hip pain. HISTORY OF PRESENT ILLNESS: Mr. Muniz is an 83-year-old male with past medical history significant for seizures, dementia, frequent falls, history of rib fractures in the past, hypertension, BPH, vitamin B12 deficiency, irritable bowel and diarrhea, who currently resides at [facility] and was brought to the emergency room due to inability to ambulate after an unwitnessed fall. Per the nephew, staff at [facility] reported that the patient fell out of bed and was unable to ambulate after the fall. The fall was unwitnessed. When asking the patient, the patient reports that he fell outside and that he did hit his head with the fall, but does not remember how he fell or where he fell. The patient does have confusion at baseline and is only oriented to person. He is confused to time and situation as well as place. The patient denies any recent dizziness. He denies any fevers or chills. He denies any chest pain or edema. He denies any cough, hemoptysis. He denies any shortness of breath. No nausea, vomiting, diarrhea, or abdominal pain. He denies any gross hematuria or dysuria. He denies any focal weakness or sensory loss, visual complaints, dysphagia, arthralgias. He does complain of right hip pain with palpation. He does have limited range of motion to the right leg. Full range of motion is intact to the left leg. There are no rashes, lesions, or open sores. Denies any psychosis or anxiety. While in the emergency room, the patient had routine lab work drawn and had CT of the C-spine, L-spine and pelvis, which did show a nondisplaced intertrochanteric hip fracture. The L-spine did show T12 compression fracture. He was seen by Orthopedics in the emergency room, who recommended ORIF of the right hip for repair. Hospital Medicine was asked to see and evaluate the patient for admission due to his right hip fracture. PAST MEDICAL HISTORY: Significant for: 1. Seizures. 2. Dementia. 3. Hypertension. 4. BPH. 5. Vitamin B12 deficiency. 6. History of pulmonary edema. PAST SURGICAL HISTORY: None. HOME MEDICATIONS: 1. Acetaminophen 650 mg p.o. q.6 hours as needed for pain. 2. Atenolol 25 mg p.o. daily. 3. Dicyclomine 10 mg 4 times a day for irritable bowel. 4. Ipratropium/albuterol 1 neb every 4 hours as needed for shortness of breath or wheezing. 5. Lasix 20 mg 1 tablet p.o. Monday, Monday, Monday, , Monday. 6. Lomotil 2 mg 1 tablet every 4 hours as needed for diarrhea. 7. Tamsulosin 0.4 mg p.o. daily. 8. Tegretol 200 mg p.o. t.i.d. ALLERGIES: 1. ASPIRIN. 2. IBUPROFEN. FAMILY HISTORY: Mother with a history of congestive heart failure and hypothyroid. Father with lung cancer. No reported history of diabetes. SOCIAL HISTORY: The patient denies any tobacco, alcohol, or illicit drug use. He currently resides at [facility]. He uses a walker at times for ambulation. Surrogate decision maker in the event he is unable to make his own decisions is his nephew, Chuy. He is a DNR/DNI, but would want BiPAP if needed. REVIEW OF SYSTEMS: A 14-point review of systems was completed and all pertinent positives were mentioned in the HPI, otherwise were negative. PHYSICAL EXAMINATION GENERAL: At this time, Mr. Muniz is an 83-year-old male. He is alert, oriented to person, resting on the stretcher in the emergency room. He is in no acute distress. VITAL SIGNS: Blood pressure 139/76, heart rate is 58, respirations 18, O2 saturation 96%, temperature was 97.9. HEENT: Head is atraumatic, normocephalic. Eyes: EOMs are intact. Sclerae anicteric and not pale. Oral mucosa appeared to be moist. NECK: Supple. LUNGS: Diminished bilaterally. There are no wheezes, rales, or rhonchi. CARDIAC: S1, S2. Regular rate and rhythm. ABDOMEN: Soft and nontender. Bowel sounds are present x4. EXTREMITIES: Pedal pulses are +1 bilaterally. He has limited range of motion to his right lower extremity. Full range of motion to the left lower extremity. NEUROLOGIC: He is confused. He is oriented to person and date. He is confused to place, time, and situation. The patient does have baseline dementia and the nephew reports that he is currently at his baseline. His speech is clear. There are no gross focal deficits noted. SKIN: Intact. DIAGNOSTIC STUDIES/LAB DATA: WBCs are 8.2, RBCs 4.47, hemoglobin 14.3, hematocrit is 40, platelet count 252. INR was 1.10. Sodium was 138, potassium 4.6, chloride 101, carbon dioxide was 21, anion gap was 6, BUN was 21, creatinine 0.84, glucose is 110, calcium 9.1. ASTs were 15, ALTs were 12, alkaline phosphatase was 130. CT of the brain: No acute intracranial abnormality. Mild chronic small vessel ischemic disease, mild cerebral volume loss. He had a chest x-ray, radiologist's impression: Low lung volumes. No focal airspace opacification. Unchanged enlarged cardiomediastinal silhouette. He had a CT of the C-spine that showed no acute fracture. Unchanged 2 mm anterolisthesis of C2 and C3, varying degrees of multilevel spondylosis with no severe osseous encroachment of the spinal canal or neural foramina. He had a CT of the lumbar spine re-demonstrated old T12 compression fracture with yigrixbn-fh-eoxtin bony retropulsion. No acute fracture or traumatic malalignment of the lumbar spine. Osteopenia, zsipipfc-fx-vchyay left neural foraminal stenosis, and moderate spinal canal stenosis at L4-L5. He had a CT of the pelvis: Minimally displaced intertrochanteric right hip fracture, a second transversely oriented fracture plane extends into the greater tuberosity, osteopenia. He had a CT of the thoracic spine: No acute fracture or traumatic malalignment of the thoracic spine. There was old T12 compression fracture resulting in 80% vertebral body height loss and hucklchp-sr-xszxgz bony retropulsion is unchanged. He had an electrocardiogram, which showed sinus bradycardia with right bundle branch block at a rate of 58, unchanged from previous comparison of EKG from July of 2018. ASSESSMENT AND PLAN: Mr. Muniz is an 83-year-old male with a past medical history significant for seizures, hypertension, dementia, vitamin B12 deficiency and history of pulmonary edema, who presented to the emergency room after an unwitnessed fall at [facility] complaining of back pain, found to have a right hip fracture. He will be admitted inpatient for: 1. Right hip fracture. Dr. Troy from Orthopedics was consulted. Management of the hip fracture will be per Orthopedics. PT/OT per Orthopedics. I would recommend Tylenol 650 mg every 6 hours as needed for pain. I would use caution in using opioid narcotics for pain management as he does have underlying dementia and baseline confusion. The patient does have an RCRI score of 1, class 2 risk, giving him 6% 30-day risk of , myocardial infarction, or cardiac arrest. The patient reports that he is able to ambulate at baseline with and without a walker, does not develop chest pain or shortness of breath. He had a recent transthoracic echocardiogram on 06/11/18, which showed an EF of greater than 65%, normal systolic function, left atrium was mildly dilated, no functionally significant valvular abnormalities were noted, no mitral stenosis and hjkcu-jg-twhx regurgitation. Given that the patient was able to ambulate and has reported no chest pain, has a RCRI score of 1, he is an acceptable candidate at this time for right hip repair surgery with no further optimization needed prior to surgery. 2. Hypertension. I would continue his atenolol, resuming this tomorrow for his hypertension. 3. Benign prostatic hyperplasia. He should continue on tamsulosin as previously prescribed. 4. History of seizures. The patient will be placed on seizure precautions. He should continue on Tegretol as previously prescribed. 5. Dementia. Supportive care. 6. FEN: He is n.p.o. Upon resuming his diet, he can have a regular diet. 7. Code status: He is a DNR/DNI, but wishes to have BiPAP, noninvasive oxygen therapy if needed. TIME SPENT: Time spent on this admission was approximately 60 minutes, greater than half that time was spent at the bedside reviewing the events leading thus far to his hospitalization, performing physical exam, and reviewing my plan of care. I have discussed this with my attending, Dr. Oscar Rod; he is in agreement with my plan. LYN NICOLE, DEAF/HARD OF HEARING SPECIALIST [id number]/[facility] #: [id number] [facility]
[2018-11-18] MEDS: carBAMazepine TAB(*) 200 MG PO SCH ×2 (14:39→21:02)
[2018-11-18] MEDS ORDERED: Levalbuterol 1.25MG/0.5ML NEB INH ONE (15:53)
[2018-11-18] MEDS ORDERED: Buffered Lidocaine 1% SYRIN* 1 ML/SYRINGE INTRADERM ONE (15:53)
[2018-11-18] MEDS ORDERED: Bupivacaine 0.5%* 50 ML MDV VIAL ONE (15:55)
[2018-11-18] MEDS ORDERED: Propofol* 500 MG/50 ML BTL ONE (15:59)
[2018-11-18] MEDS ORDERED: Propofol* 10 MG/ML 20 ML BTL ONE (15:59)
[2018-11-18] MEDS ORDERED: KETAMINE HCL* 50 MG/ML 10 ML VIAL ONE (15:59)
[2018-11-18] MEDS ORDERED: Lidocaine 2% PF * 5 ML VIAL ONE ×2 (15:59→16:05)
[2018-11-18] MEDS ORDERED: Midazolam* 1 MG/ML 2 ML VIAL (2 MG) ONE (16:04)
[2018-11-18] MEDS ORDERED: ceFAZolin 2 GM in NS PREMIX(*) 2 GM/100 ML BAG IVPB ONE (16:18)
[2018-11-18] MEDS ORDERED: Albuterol 2.5 MG/3 ML NEB.SOL* (0.083%) INH ONE (16:40)
[2018-11-18] MEDS ORDERED: Phenylephrine 40 MCG/ML SYRINGE ONE (17:13)
[2018-11-18] MEDS ORDERED: Phenylephrine 10 MG/ML VIAL* 1 ML VIAL ONE ×2 (17:18→19:04)
[2018-11-18] MEDS ORDERED: Ondansetron INJ* 2 MG/ML VIAL IV PRN (17:54)
[2018-11-18] MEDS ORDERED: fentaNYL* 50 MCG/ML 2 ML VIAL (100 MCG VIAL) IV PRN (17:54)
[2018-11-18] MEDS ORDERED: Naloxone* 0.4 MG/ML 1 ML VIAL IV PRN (17:54)
[2018-11-18] MEDS ORDERED: Acetaminophen TAB* 325 MG PO PRN (17:54)
[2018-11-18] MEDS ORDERED: oxyCODONE TAB* 5 MG TAB PO PRN (17:54)
--- NOTE | 2018-11-18 19:57 | OP ---
DATE OF OPERATION: 11/18/18 - ROOM #337 DATE OF : 33 SURGEON: Barbara Troy MD MANAGER MEETING: LORNA Sheriff ANESTHESIA: Spinal. PRE-OP DIAGNOSIS: Intertrochanteric fracture of the right hip. POST-OP DIAGNOSIS: Intertrochanteric fracture of the right hip. OPERATIVE PROCEDURE: Open reduction and internal fixation of the right hip. ESTIMATED BLOOD LOSS: Less than 100 cc. INDICATIONS FOR PROCEDURE: Samuel is an 83-year-old man who fell at [facility] yesterday, injuring his right hip. CT scan shows an intertrochanteric fracture of the right hip, which is nondisplaced. He presents for ORIF. DESCRIPTION OF PROCEDURE: The patient was brought to the operating room, was given a spinal anesthetic and placed in the supine position on the operating table. We used a fracture table. The right leg was in traction. The left leg was in a stirrup. Preop x-rays showed the fracture to be reduced. The skin of his right hip and thigh area was prepped and draped in the usual sterile fashion. A lateral longitudinal incision was made. We dissected sharply through the vastus lateralis and fascia flores down to the femur bone. A guidewire from the [employer] set was driven through the lateral cortex into the center of the femoral head on both the AP and lateral views. We measured for a 100 mm lag screw and then drilled and reamed over the guidewire. A 4-hole 135- degree sideplate was secured with 4 bicortical distal screws. The position of the hardware and fracture fragments was checked on the C- arm in the AP and lateral views and found to be satisfactory. The wound was irrigated with saline. Hemovac drain was placed. The fascia flores and vastus lateralis were closed with #2 Vicryl sutures. Subcutaneous tissue was closed with 2-0 Vicryl and the skin with skin zackary. The wound was dressed with Xeroform, 4x4, and ABD. The patient tolerated the procedure well and was brought to the recovery room in good condition. [id number]/[facility] #: [id number] [facility]
[2018-11-18] MEDS: Docusate CAP* 100 MG PO SCH (21:02)
[2018-11-18] MEDS: Lactated Ringers 1000 ML Bag* 1,000 ML IV SCH (21:07)
[2018-11-19] MEDS ORDERED: Haloperidol INJ IV/IM* 5 MG/ML AMP IM ONE (00:15)
[2018-11-19] MEDS ORDERED: ceFAZolin 1 GM* X 3 DOSES POST-OP Q8H (AddVan) IVPB SCH ×2 (01:30)
[2018-11-19] MEDS ORDERED: ceFAZolin 1 GM* X ONE DOSE (AddVan) IVPB ×2 (02:30)
[2018-11-19 04:50] LABS: ABS Lymphocytes 0.7 10^3/ul (1.0-4.8); ABS Monocytes 0.7 10^3/ul (0-0.8); ABS Neutrophils 6.9 10^3/ul (1.5-7.7); Eosinophil % 0.1 %; Hematocrit 33 % (42-52); Hemoglobin 11.7 g/dL (14.0-18.0); Lymphocyte % 8.6 %; Mean Corpuscular HGB Conc 35 g/dL (31-36); Mean Corpuscular Hemoglobin 31 pg (27-31); Mean Corpuscular Volume 90 fL (80-94); Mean Platelet Volume 6.8 fL (7.4-10.4); Platelet Count 203 10^3/uL (150-450); Red Blood Count 3.72 10^6 /uL (4.18-5.48); Red Cell Distribution Width 14 % (10-15); White Blood Count 8.3 10^3/uL (3.5-10.8)
[2018-11-19 05:05] LABS: BUN/Creatinine Ratio 22.6 (8-20); EGFR African American 149.5 (>60); EGFR Non-African American 123.6 (>60); Potassium 4.1 mmol/L (3.5-5.0)
[2018-11-19] MEDS: Lactated Ringers 1000 ML Bag* 1,000 ML IV SCH (05:29)
[2018-11-19 06:26] LABS: Urine Appearance Clear; Urine Bacteria Absent (Absent); Urine Bilirubin Negative (Negative); Urine Blood 2+ (Negative); Urine Color Yellow; Urine Glucose Negative (Negative); Urine Ketones 1+ (Negative); Urine Nitrite Negative (Negative); Urine Protein 1+(30 mg/dL) (Negative); Urine Red Blood Cell 3+(>10/hpf) (Absent); Urine Specific Gravity 1.014 (1.010-1.030); Urine Urobilinogen Negative (Negative); Urine White Blood Cell 3+(>20/hpf) (Absent)
[2018-11-19] MEDS ORDERED: Atenolol TAB* 25 MG PO SCH (09:00)
[2018-11-19] MEDS: Docusate CAP* 100 MG PO SCH ×2 (09:49→21:53)
[2018-11-19] MEDS: Acetaminophen TAB* 325 MG PO PRN ×2 (09:49→18:23)
[2018-11-19] MEDS: Tamsulosin CAP* 0.4 MG PO SCH (09:50)
[2018-11-19] MEDS: Enoxaparin(*) 40 MG/0.4 ML SYR SUBCUT SCH (09:51)
[2018-11-19] MEDS: ceFAZolin* 2 GM in NS 100 MLS Q8H (Pharmacy Admix) IVPB SCH ×2 (09:51→18:21)
[2018-11-19] MEDS: carBAMazepine TAB(*) 200 MG PO SCH ×3 (12:13→21:53)
--- NOTE | 2018-11-19 12:31 | PN ---
Progress Note - Progress Note Date of Service: 11/19/18 SOAP: Subjective: []Pt seen at bedside. He is agitated and has a 1:1 supervision. Does not answer my questions. Objective: []Gen: Awake and alert, agitated rolling around in bed. Repeatedly asks if he did something wrong, does not follow direction or answer questions. RLE: Right hip dressing CDI, drain in place with 200 ml blood in canister. Thigh is soft. DF/PF intact, DP2+. Does not answer questions to determine sensation. Calves supple and nontender Assessment: []POD 1 sp ORIF R hip Dr Troy Plan: []WBAT PT/OT Lovenox 40 mg sq qd x 30 days post op for dvt prophy Drain with significant output, will leave in place until tomorrow. If patient removes please ensure tip is intact and place dry dressing and tape. Vital Signs Temp 98.1 F 11/19/18 11:00 Pulse 74 11/19/18 11:00 Resp 31 11/19/18 11:00 BP 97/45 11/19/18 11:00 Pulse Ox 96 11/19/18 11:00 Intake & Output 11/18/18 11/19/18 11/19/18 18:59 06:59 18:59 Intake Total 0 2130 120 Output Total 30 1150 200 Balance -30 980 -80 Weight 115 lb Intake: IV Fluids 1979 LR 1979 IVPB 100 ABX - CEFAZOLIN 100 Oral 0 50 120 Output: Urine 0 200 200 Olsen 850 Residual 30 Coude 14 Fr 30 Estimated Blood Loss 100 Other: Estimated Void Small Date of Last Bowel 11/19/18 Movement # Bowel Movements 1 Estimated Stool Amount Large # Voids 1 Laboratory Last Values WBC 8.3 10^3/uL (3.5-10.8) 11/19/18 04:29 RBC 3.72 10^6 /uL (4.18-5.48) L 11/19/18 04:29 Hgb 11.7 g/dL (14.0-18.0) L 11/19/18 04:29 Hct 33 % (42-52) L 11/19/18 04:29 MCV 90 fL (80-94) 11/19/18 04:29 MCH 31 pg (27-31) 11/19/18 04:29 MCHC 35 g/dL (31-36) 11/19/18 04:29 RDW 14 % (10-15) 11/19/18 04:29 Plt Count 203 10^3/uL (150-450) 11/19/18 04:29 MPV 6.8 fL (7.4-10.4) L 11/19/18 04:29 Neut % (Auto) 82.7 % 11/19/18 04:29 Lymph % (Auto) 8.6 % 11/19/18 04:29 [place] % (Auto) 8.6 % 11/19/18 04:29 Eos % (Auto) 0.1 % 11/19/18 04:29 Baso % (Auto) 0.0 % 11/19/18 04:29 Absolute Neuts (auto) 6.9 10^3/ul (1.5-7.7) 11/19/18 04:29 Absolute Lymphs (auto) 0.7 10^3/ul (1.0-4.8) L 11/19/18 04:29 Absolute Monos (auto) 0.7 10^3/ul (0-0.8) 11/19/18 04:29 Absolute Eos (auto) 0.0 10^3/ul (0-0.6) 11/19/18 04:29 Absolute Basos (auto) 0.0 10^3/ul (0-0.2) 11/19/18 04:29 Absolute Nucleated RBC 0.0 10^3/ul 11/19/18 04:29 Nucleated RBC % 0.0 11/19/18 04:29 INR (Anticoag Therapy) 1.10 (0.82-1.09) H 11/18/18 11:33 Sodium 137 mmol/L (135-145) 11/19/18 04:29 Potassium 4.1 mmol/L (3.5-5.0) 11/19/18 04:29 Chloride 103 mmol/L (101-111) 11/19/18 04:29 Carbon Dioxide 28 mmol/L (22-32) 11/19/18 04:29 Anion Gap 6 mmol/L (2-11) 11/19/18 04:29 BUN 14 mg/dL (6-24) 11/19/18 04:29 Creatinine 0.62 mg/dL (0.67-1.17) L 11/19/18 04:29 Est GFR ( Amer) 149.5 (>60) 11/19/18 04:29 Est GFR (Non-Af Amer) 123.6 (>60) 11/19/18 04:29 BUN/Creatinine Ratio 22.6 (8-20) H 11/19/18 04:29 Glucose 105 mg/dL (70-100) H 11/19/18 04:29 Calcium 8.0 mg/dL (8.6-10.3) L 11/19/18 04:29 Total Bilirubin 0.50 mg/dL (0.2-1.0) 11/18/18 11:33 AST 15 U/L (13-39) 11/18/18 11:33 ALT 12 U/L (7-52) 11/18/18 11:33 Alkaline Phosphatase 130 U/L (34-104) H 11/18/18 11:33 Total Protein 7.1 g/dL (6.4-8.9) 11/18/18 11:33 Albumin 3.7 g/dL (3.2-5.2) 11/18/18 11:33 Globulin 3.4 g/dL (2-4) 11/18/18 11:33 Albumin/Globulin Ratio 1.1 (1-3) 11/18/18 11:33 Urine Color Yellow 11/19/18 06:00 Urine Appearance Clear 11/19/18 06:00 Urine pH 7.0 (5-9) 11/19/18 06:00 Ur Specific [place] 1.014 (1.010-1.030) 11/19/18 06:00 Urine Protein 1+(30 mg/dl) (Negative) A 11/19/18 06:00 Urine Ketones 1+ (Negative) A 11/19/18 06:00 Urine Blood 2+ (Negative) A 11/19/18 06:00 Urine Nitrate Negative (Negative) 11/19/18 06:00 Urine Bilirubin Negative (Negative) 11/19/18 06:00 Urine Urobilinogen Negative (Negative) 11/19/18 06:00 Ur Leukocyte Esterase 2+ (Negative) A 11/19/18 06:00 Urine WBC (Auto) 3+(>20/hpf) (Absent) A 11/19/18 06:00 Urine RBC (Auto) 3+(>10/hpf) (Absent) A 11/19/18 06:00 Urine Bacteria Absent (Absent) 11/19/18 06:00 Urine Glucose Negative (Negative) 11/19/18 06:00 Carbamazepine 12.9 mcg/mL (4.0-12.0) H 11/18/18 11:33
--- NOTE | 2018-11-19 21:56 | PN ---
Subjective Date of Service: 11/19/18 Interval History: Patient denies chest pain or shortness of breath. Reports mild hip pain. Denies fever or chills. Denies n/v/d. Family History: Unchanged from Admission Social History: Unchanged from Admission Past Medical History: Unchanged from Admission Objective Active Medications: Acetaminophen (Tylenol Tab*) 650 mg PO Q6H PRN PRN Reason: FEVER/PAIN Last Admin: 11/19/18 18:23 Dose: 650 mg Atenolol (Tenormin Tab*) 25 mg PO DAILY [facility] Last Admin: 11/19/18 09:50 Dose: 25 mg Carbamazepine (Tegretol Tab(*)) 200 mg PO TID [facility] Last Admin: 11/19/18 12:14 Dose: 200 mg Docusate Sodium (Colace Cap*) 100 mg PO BID [facility] Last Admin: 11/19/18 09:49 Dose: 100 mg Enoxaparin Sodium (Lovenox(*)) 40 mg SUBCUT Q24H [facility] Last Admin: 11/19/18 09:51 Dose: 40 mg Magnesium Hydroxide (Milk Of Magnesia Liq*) 30 ml PO BID PRN PRN Reason: CONSTIPATION Polyethylene Glycol/Electrolytes (Miralax*) 17 gm PO DAILY PRN PRN Reason: CONSTIPATION Senna (Senokot Tab*) 1 tab PO BEDTIME PRN PRN Reason: CONSTIPATION Tamsulosin HCl (Flomax Cap*) 0.4 mg PO DAILY [facility] Last Admin: 11/19/18 09:50 Dose: 0.4 mg Vital Signs - 8 hr 11/19/18 11/19/18 11/19/18 15:58 17:22 19:23 Temperature 98.2 F Pulse Rate 65 Respiratory 22 18 Rate Blood Pressure 106/48 (mmHg) O2 Sat by Pulse 94 94 Oximetry 11/19/18 11/19/18 19:33 19:46 Temperature 99.4 F Pulse Rate 90 Respiratory 18 18 Rate Blood Pressure 102/54 (mmHg) O2 Sat by Pulse 91 Oximetry Oxygen Devices in Use Now: Nasal Cannula Appearance: Alert, confused to place and time Eyes: No Scleral Icterus Ears/Nose/Mouth/Throat: Clear Oropharnyx, Mucous Membranes Moist Neck: NL Appearance and Movements; NL JVP Respiratory: Symmetrical Chest Expansion and Respiratory Effort, Clear to Auscultation Cardiovascular: NL Sounds; No Murmurs; No JVD, No Edema Abdominal: NL Sounds; No Tenderness; No Distention Extremities: No Edema, No Clubbing, Cyanosis Skin: No Rash or Ulcers, - - dressing dry and intact to right hip Neurological: Alert and Oriented x 3 Nutrition: Taking PO's Result Diagrams: 11/20/18 06:31 11/20/18 06:31 Microbiology and Other Data: Microbiology 11/19/18 08:05 Nasal Screen MRSA (PCR) - Final Nasal Mrsa Not Detected Assess/Plan/Problems-Billing Assessment: Mr. Muniz is a 83 y.o male with a past medical hx significant for dementia, BPH, htn who presented to the ER with right hip after a fall out of bed. - Patient Problems (1) Closed right hip fracture Status: Acute Code(s): S72.001A - FRACTURE OF UNSP PART OF NECK OF RIGHT FEMUR , INIT SNOMED Code(s): 306373454 Comment: -management per orthopedics -PT/OT per orthopedics -dvt prop per orthopedics -pain management per orthopedics -pain controlled with prn pain medication (2) Dementia Status: Acute Code(s): F03.90 - UNSPECIFIED DEMENTIA WITHOUT BEHAVIORAL DISTURBANCE SNOMED Code(s): 47949831 Comment: -supportive care (3) HTN (hypertension) Status: Acute Code(s): I10 - ESSENTIAL (PRIMARY) HYPERTENSION SNOMED Code(s) : 92640091 Comment: - normotensive today - will hold metoprolol for SBP less than 110 and HR less than 55 (4) Seizure disorder Status: Acute Code(s): G40.909 - EPILEPSY, UNSP, NOT INTRACTABLE, WITHOUT STATUS EPILEPTICUS SNOMED Code(s): 369419979 Comment: - Continue carbamazepine 200 mg tid. - tegretol level is 12.9 mildly elevated, - suspect this is not a true through as the patient takes this 3 times a day - will monitor for signs of toxicity (5) DVT prophylaxis Status: Acute Code(s): JJE2319 - SNOMED Code(s): 832299145 Comment: -Continue lovenox (6) DNR (do not resuscitate) Status: Acute Status and Disposition: inpatient - return to [facility] for rehab
[2018-11-20] MEDS: Acetaminophen TAB* 325 MG PO PRN ×4 (01:59→22:01)
[2018-11-20 06:59] LABS: Hematocrit 29 % (42-52); Hemoglobin 10.4 g/dL (14.0-18.0); Mean Corpuscular HGB Conc 36 g/dL (31-36); Mean Corpuscular Hemoglobin 32 pg (27-31); Mean Corpuscular Volume 90 fL (80-94); Mean Platelet Volume 6.9 fL (7.4-10.4); Platelet Count 191 10^3/uL (150-450); Red Blood Count 3.25 10^6 /uL (4.18-5.48); Red Cell Distribution Width 14 % (10-15); White Blood Count 6.6 10^3/uL (3.5-10.8)
[2018-11-20 07:18] LABS: BUN/Creatinine Ratio 22.2 (8-20); Calcium 7.8 mg/dL (8.6-10.3); EGFR African American 146.8 (>60); EGFR Non-African American 121.3 (>60)
[2018-11-20] MEDS: Tamsulosin CAP* 0.4 MG PO SCH (08:25)
[2018-11-20] MEDS: carBAMazepine TAB(*) 200 MG PO SCH ×3 (08:25→22:01)
[2018-11-20] MEDS: Enoxaparin(*) 40 MG/0.4 ML SYR SUBCUT SCH (08:29)
[2018-11-20] MEDS: Docusate CAP* 100 MG PO SCH ×2 (08:43→22:02)
--- NOTE | 2018-11-20 11:10 | PN ---
Subjective Date of Service: 11/20/18 Interval History: Patient answers questions appropriately. Nursing reports patient doesn't complain of pain at rest, just says he "feels sore." Visibly in pain with exertion today, per nursing. His pain is relieved with pain medication, per nursing. Patient denies pain at time of evaluation. Denies chest pain, SOB, fever/chills, abd pain, nausea, vomiting. Family History: Unchanged from Admission Social History: Unchanged from Admission Past Medical History: Unchanged from Admission Objective Active Medications: Acetaminophen (Tylenol Tab*) 650 mg PO Q6H PRN PRN Reason: FEVER/PAIN Last Admin: 11/20/18 08:25 Dose: 650 mg Carbamazepine (Tegretol Tab(*)) 200 mg PO TID [facility] Last Admin: 11/20/18 08:25 Dose: 200 mg Docusate Sodium (Colace Cap*) 100 mg PO BID [facility] Last Admin: 11/20/18 08:43 Dose: 100 mg Enoxaparin Sodium (Lovenox(*)) 40 mg SUBCUT Q24H [facility] Last Admin: 11/20/18 08:29 Dose: 40 mg Magnesium Hydroxide (Milk Of Magnesia Liq*) 30 ml PO BID PRN PRN Reason: CONSTIPATION Polyethylene Glycol/Electrolytes (Miralax*) 17 gm PO DAILY PRN PRN Reason: CONSTIPATION Senna (Senokot Tab*) 1 tab PO BEDTIME PRN PRN Reason: CONSTIPATION Tamsulosin HCl (Flomax Cap*) 0.4 mg PO DAILY [facility] Last Admin: 11/20/18 08:25 Dose: 0.4 mg Vital Signs - 8 hr 11/20/18 11/20/18 11/20/18 03:57 07:19 08:30 Temperature 98.3 F 98.1 F Pulse Rate 69 73 Respiratory 17 13 14 Rate Blood Pressure 98/43 108/58 (mmHg) O2 Sat by Pulse 95 96 96 Oximetry Oxygen Devices in Use Now: None Appearance: Thin, elderly white male in hospital chair appearing in NAD Eyes: PERRLA Ears/Nose/Mouth/Throat: Mucous Membranes Moist Neck: - - neck supple Respiratory: Symmetrical Chest Expansion and Respiratory Effort, Clear to Auscultation Cardiovascular: NL Sounds; No Murmurs; No JVD, RRR Abdominal: - - abd soft, nontender, nondistended Extremities: No Edema, No Clubbing, Cyanosis Skin: - - skin warm, dry, intact Neurological: NL Muscle Strength and Tone, - - alert and oriented only to self, knows he is in the hospital Result Diagrams: 11/20/18 06:31 11/20/18 06:31 Microbiology and Other Data: Microbiology 11/19/18 08:05 Nasal Screen MRSA (PCR) - Final Nasal Mrsa Not Detected Assess/Plan/Problems-Billing Assessment: Mr. Muniz is a 83 y.o male with a past medical hx significant for dementia, BPH, htn who presented to the ER with right hip after a fall out of bed. - Patient Problems (1) Closed right hip fracture Current Visit: Yes Status: Acute Code(s): S72.001A - FRACTURE OF UNSP PART OF NECK OF RIGHT FEMUR, INIT SNOMED Code(s): 655621283 Comment: -management per orthopedics -PT/OT per orthopedics -dvt prop per orthopedics -pain management per orthopedics -pain controlled with prn pain medication (2) Dementia Current Visit: No Status: Acute Code(s): F03.90 - UNSPECIFIED DEMENTIA WITHOUT BEHAVIORAL DISTURBANCE SNOMED Code(s): 71672450 Comment: -supportive care (3) HTN (hypertension) Current Visit: No Status: Acute Code(s): I10 - ESSENTIAL (PRIMARY) HYPERTENSION SNOMED Code(s): 75550667 Comment: - normotensive today - will hold metoprolol for SBP less than 110 and HR less than 55 (4) Seizure disorder Current Visit: No Status: Acute Code(s): G40.909 - EPILEPSY, UNSP, NOT INTRACTABLE, WITHOUT STATUS EPILEPTICUS SNOMED Code(s): 035910612 Comment: - Continue carbamazepine 200 mg tid. - tegretol level is 12.9 mildly elevated, no signs of toxicity (5) DVT prophylaxis Current Visit: No Status: Acute Code(s): HYB8404 - SNOMED Code(s): 713463083 Comment: -Continue lovenox (6) DNR (do not resuscitate) Current Visit: Yes Status: Acute Status and Disposition: Patient is a [employer] intermediary resident and [place], awaiting auth to return with rehab
--- NOTE | 2018-11-20 12:05 | PN ---
Progress Note - Progress Note Date of Service: 11/20/18 SOAP: Subjective: []Pt seen OOB in chair. He is feeling better today, interactive with me. Hip pain is well controlled. Denies CP, SOB, dizziness, nausea. Objective: []Gen: Awake and alert, answers questions appropriately. RLE: Right hip dressing changed, incision CDI, drain pulled with tip intact. Thigh is soft not tense or fluctuant. DF/PF intact, DP2+. Sensation intact to light touch distally Calves supple and nontender Assessment: [] sp ORIF R hip Dr Troy Plan: []WBAT PT/OT Lovenox 40 mg sq qd x 30 days post op for dvt prophy Ready for Dc from ortho standpoint Vital Signs Temp 97.9 F 11/20/18 11:31 Pulse 81 11/20/18 11:31 Resp 14 11/20/18 11:31 BP 93/58 11/20/18 11:31 Pulse Ox 96 11/20/18 11:31 Intake & Output 11/19/18 11/20/18 11/20/18 18:59 06:59 18:59 Intake Total 670 680 0 Output Total 400 25 0 Balance 270 655 0 Intake: Oral 670 680 0 Output: Hemovac Amount #1 25 Hemovac Amount #2 200 Urine 200 0 0 Other: Estimated Void Large Large Date of Last Bowel 11/19/18 Movement # Bowel Movements 1 1 Estimated Stool Amount Large Medium # Voids 1 1 Laboratory Last Values WBC 6.6 10^3/uL (3.5-10.8) 11/20/18 06:31 RBC 3.25 10^6 /uL (4.18-5.48) L 11/20/18 06:31 Hgb 10.4 g/dL (14.0-18.0) L 11/20/18 06:31 Hct 29 % (42-52) L 11/20/18 06:31 MCV 90 fL (80-94) 11/20/18 06:31 MCH 32 pg (27-31) H 11/20/18 06:31 MCHC 36 g/dL (31-36) 11/20/18 06:31 RDW 14 % (10-15) 11/20/18 06:31 Plt Count 191 10^3/uL (150-450) 11/20/18 06:31 MPV 6.9 fL (7.4-10.4) L 11/20/18 06:31 Neut % (Auto) 82.7 % 11/19/18 04:29 Lymph % (Auto) 8.6 % 11/19/18 04:29 [place] % (Auto) 8.6 % 11/19/18 04:29 Eos % (Auto) 0.1 % 11/19/18 04:29 Baso % (Auto) 0.0 % 11/19/18 04:29 Absolute Neuts (auto) 6.9 10^3/ul (1.5-7.7) 11/19/18 04:29 Absolute Lymphs (auto) 0.7 10^3/ul (1.0-4.8) L 11/19/18 04:29 Absolute Monos (auto) 0.7 10^3/ul (0-0.8) 11/19/18 04:29 Absolute Eos (auto) 0.0 10^3/ul (0-0.6) 11/19/18 04:29 Absolute Basos (auto) 0.0 10^3/ul (0-0.2) 11/19/18 04:29 Absolute Nucleated RBC 0.0 10^3/ul 11/19/18 04:29 Nucleated RBC % 0.0 11/19/18 04:29 INR (Anticoag Therapy) 1.10 (0.82-1.09) H 11/18/18 11:33 Sodium 136 mmol/L (135-145) 11/20/18 06:31 Potassium 4.0 mmol/L (3.5-5.0) 11/20/18 06:31 Chloride 104 mmol/L (101-111) 11/20/18 06:31 Carbon Dioxide 28 mmol/L (22-32) 11/20/18 06:31 Anion Gap 4 mmol/L (2-11) 11/20/18 06:31 BUN 14 mg/dL (6-24) 11/20/18 06:31 Creatinine 0.63 mg/dL (0.67-1.17) L 11/20/18 06:31 Est GFR ( Amer) 146.8 (>60) 11/20/18 06:31 Est GFR (Non-Af Amer) 121.3 (>60) 11/20/18 06:31 BUN/Creatinine Ratio 22.2 (8-20) H 11/20/18 06:31 Glucose 107 mg/dL (70-100) H 11/20/18 06:31 Calcium 7.8 mg/dL (8.6-10.3) L 11/20/18 06:31 Total Bilirubin 0.50 mg/dL (0.2-1.0) 11/18/18 11:33 AST 15 U/L (13-39) 11/18/18 11:33 ALT 12 U/L (7-52) 11/18/18 11:33 Alkaline Phosphatase 130 U/L (34-104) H 11/18/18 11:33 Total Protein 7.1 g/dL (6.4-8.9) 11/18/18 11:33 Albumin 3.7 g/dL (3.2-5.2) 11/18/18 11:33 Globulin 3.4 g/dL (2-4) 11/18/18 11:33 Albumin/Globulin Ratio 1.1 (1-3) 11/18/18 11:33 Urine Color Yellow 11/19/18 06:00 Urine Appearance Clear 11/19/18 06:00 Urine pH 7.0 (5-9) 11/19/18 06:00 Ur Specific [place] 1.014 (1.010-1.030) 11/19/18 06:00 Urine Protein 1+(30 mg/dl) (Negative) A 11/19/18 06:00 Urine Ketones 1+ (Negative) A 11/19/18 06:00 Urine Blood 2+ (Negative) A 11/19/18 06:00 Urine Nitrate Negative (Negative) 11/19/18 06:00 Urine Bilirubin Negative (Negative) 11/19/18 06:00 Urine Urobilinogen Negative (Negative) 11/19/18 06:00 Ur Leukocyte Esterase 2+ (Negative) A 11/19/18 06:00 Urine WBC (Auto) 3+(>20/hpf) (Absent) A 11/19/18 06:00 Urine RBC (Auto) 3+(>10/hpf) (Absent) A 11/19/18 06:00 Urine Bacteria Absent (Absent) 11/19/18 06:00 Urine Glucose Negative (Negative) 11/19/18 06:00 Carbamazepine 12.9 mcg/mL (4.0-12.0) H 11/18/18 11:33
[2018-11-21] MEDS: Acetaminophen TAB* 325 MG PO PRN (09:42)
[2018-11-21] MEDS: carBAMazepine TAB(*) 200 MG PO SCH (09:43)
[2018-11-21] MEDS: Tamsulosin CAP* 0.4 MG PO SCH (09:43)
[2018-11-21] MEDS: Docusate CAP* 100 MG PO SCH (09:43)
[2018-11-21] MEDS: Enoxaparin(*) 40 MG/0.4 ML SYR SUBCUT SCH (09:43)
[2018-11-21] MEDS ORDERED: Furosemide TAB* 20 MG PO ONE (10:09)
[2018-11-21 11:10] VITALS: BP 125/71
--- NOTE | 2018-11-21 11:58 | DS ---
CC: Dr. Troy * DISCHARGE SUMMARY: DATE OF ADMISSION: 11/18/18 DATE OF DISCHARGE: 11/21/18 ATTENDING PHYSICIAN WHILE IN THE HOSPITAL: Dr. Roberta Card * (dictated by LORNA Mckeon). PRIMARY CARE PROVIDER: Physician at [facility]. CONSULTING ORTHOPEDIST: Dr. Troy. PRIMARY DIAGNOSIS: Intertrochanteric fracture of right hip. SECONDARY DIAGNOSES: 1. Dementia. 2. Seizures. 3. Hypertension. 4. Benign prostatic hyperplasia 5. Vitamin B12 deficiency. 6. History of pulmonary edema. PROCEDURES WHILE IN THE HOSPITAL: On 11/18/18, Dr. Barbara Troy performed open reduction internal fixation of the right hip. STUDIES WHILE IN THE HOSPITAL: Pelvis CT on 11/18/18, minimally displaced right intertrochanteric hip fracture, a second transversely oriented fracture plane extends into the greater tuberosity, osteopenia. Lumbar spine CT, impression: Re-demonstrated old T12 compression fracture with soiebxcl-qw-cgoamv bone retropulsion. No acute fracture or traumatic malalignment of the lumbar spine. Osteopenia. Varying degree of multilevel spondylosis. In particular, this results in [id number] left neural foraminal stenosis and moderate spinal canal stenosis at L4-L5. Cervical spine CT: No fracture or traumatic malalignment. Unchanged 2-mm anterolisthesis of C2 on C3. Varying degree of multilevel spondylosis as above with no severe osseous encroachment. Spinal canal and neural foramina. Thoracic spine CT: No acute fracture or traumatic malalignment of the thoracic spine. Osteopenia. The old T12 compression fracture resulting in 80% vertebral body height loss and zxgxqojd-qg-kgylrx bone retropulsion. Old right posterior 8th and 9th rib fractures. Stigmata of old calcified granulomatous disease as above. Brain CT: No acute intracranial abnormality. Mild chronic small vessel ischemic disease is likely. Mild cerebral volume loss. HISTORY OF PRESENT ILLNESS/HOSPITAL COURSE: Samuel Muniz is an 83-year-old white male with past medical history significant for dementia, hypertension, BPH , history of seizures, who presented on 11/18/18 from [facility] after inability to ambulate after nonwitnessed fall. Please see admitting history and physical dictated by Lyn Nicole, Nurse Practitioner, for further details. Ultimately, the patient was found to have a right intertrochanteric hip fracture, Dr. Troy performed ORIF. The patient's pain was controlled with minimal use of opiates and the patient proceeded well with physical therapy after the procedure. The wound is healing well per Orthopedic Surgery and the patient is ready for discharge. During his hospital stay, his Lovenox was used for DVT prophylaxis and his home Tegretol was continued. Of note, his carbamazepine level was minimally elevated upon arrival, but the patient did not have any signs of toxicity. On date of discharge, the patient is feeling well. He does not complain of pain. There are no overnight events from nursing. The patient denies chest pain , difficulty breathing, abdominal pain, fever or chills. PHYSICAL EXAM: General: Thin elderly white male sitting in hospital bed, appearing comfortable, in no acute distress. Head: Normocephalic and atraumatic. Eyes: PERRL. Sclerae anicteric. ENT: Mucous membranes moist. Lungs: Faint crackles at bilateral lung bases. Cardiac: Regular rate and rhythm without murmurs, rubs, or rales. Abdomen: Soft, nontender, nondistended. Extremities: No clubbing, cyanosis, or edema. Neuro: The patient is oriented to only self, baseline, able to follow commands, moves all extremities. No focal deficits. DISCHARGE PLAN: Diet: Regular unrestricted diet. Activity: The patient may weight bear as tolerated on the right side. The patient will be returning to [facility] where he is a long-term resident. He will be receiving subacute rehab for this hip fracture repair. He is to follow up in Dr. Troy's office within 14 days after surgery. At the time of follow up , his zackary will be removed. Nursing care at [facility] should continue dressing changes to the site of surgery and continue p.r.n. medications for pain. If opiates are used, a bowel regimen is recommended. Additionally, because the patient does have some faint crackles in bilateral lung bases, it is recommended he continue use of incentive spirometer until this resolves. DISCHARGE MEDICATIONS: 1. Lovenox 30 mg subcu q. 24 hours to be continued until 12/19/18. 2. Senna 1 tab p.o. at bedtime p.r.n. constipation. 3. MiraLAX 17 g p.o. daily p.r.n. constipation. 4. Colace 100 mg p.o. b.i.d. p.r.n. constipation. Continued home medications: 1. Carbamazepine 200 mg p.o. t.i.d. 2. Tamsulosin 0.4 mg p.o. daily. 3. Loperamide 2 mg p.o. q.4 hours p.r.n. diarrhea. 4. Ipratropium/albuterol sulfate 3 mL inhaled t.i.d. 5. Lasix 20 mg p.o. on Monday, Monday, Monday, and Monday. 6. Dicyclomine 10 mg p.o. q.i.d. 7. Atenolol 25 mg p.o. daily. 8. Acetaminophen 650 mg p.o. q.6 hours p.r.n. pain. CONDITION ON DISCHARGE: Stable. DISPOSITION: [facility]. TIME SPENT: Approximately 40 minutes was spent on this discharge, approximately half of this time spent at bedside. LORNA MCKEON [id number]/[facility] #: [id number] MTDConi
== END 2018-11-21 12:40 | DRG 481 ==
LOC: ED 08:24 → SSU 11:38
PROVIDERS: ADMIT Internal Medicine; ATTEND Internal Medicine
PROC: 0QS604Z Reposition Right Upper Femur with Internal Fixation Device, Open Approach (ICD-10-PCS; principal; 2018-11-18 04:30)
DX: S72.141A Displaced intertrochanteric fracture of right femur, initial encounter for closed fracture (principal); S22.089A Unspecified fracture of T11-T12 vertebra, initial encounter for closed fracture; F03.90 Unspecified dementia, unspecified severity, without behavioral disturbance, psychotic disturbance, mood disturbance, and anxiety; I10 Essential (primary) hypertension; N40.0 Benign prostatic hyperplasia without lower urinary tract symptoms; E53.8 Deficiency of other specified B group vitamins; M85.861 Other specified disorders of bone density and structure, right lower leg; M85.88 Other specified disorders of bone density and structure, other site; M47.9 Spondylosis, unspecified; Z66 Do not resuscitate; E03.9 Hypothyroidism, unspecified; J44.9 Chronic obstructive pulmonary disease, unspecified; H91.90 Unspecified hearing loss, unspecified ear; K58.9 Irritable bowel syndrome, unspecified; W06.XXXA Fall from bed, initial encounter; G40.909 Epilepsy, unspecified, not intractable, without status epilepticus; R45.1 Restlessness and agitation; M48.061 Spinal stenosis, lumbar region without neurogenic claudication; Y92.129 Unspecified place in nursing home as the place of occurrence of the external cause; Z88.6 Allergy status to analgesic agent; Z88.8 Allergy status to other drugs, medicaments and biological substances; Z82.49 Family history of ischemic heart disease and other diseases of the circulatory system; Z80.1 Family history of malignant neoplasm of trachea, bronchus and lung; Z97.4 Presence of external hearing-aid; Z82.0 Family history of epilepsy and other diseases of the nervous system
CPT/HCPCS: 36415; 70450; 71045; 72125; 72128; 72131; 72192; 76000; 80048; 80053; 80156; 81003; 81015; 85025; 85027; 85610; 87040; 87086; 87641; 93005; 99284; A9270-GY; C1713; C1776; G8978-GP-CM; G8979-GP-CI; G8987-GO-CM; G8988-GO-CJ; J0690; J1630; J1650; J2250; J2704; J3490